=== PATIENT | female | born 1940 | race Caucasian/White ===

== ENCOUNTER 2018-04-26 17:30 | Inpatient (IN) | payer OTHER ==
[~2018-04-26] VITALS: Ht 162.6 cm; Wt 61.4 kg
[2018-04-26] MEDS ORDERED: IV NORMAL SALINE 1000ML BAG 1,000 ML IV SCH (18:13)
--- NOTE | 2018-04-26 18:24 | PHYS DOC ---
Adult General Chief Complaint Chief Complaint: MULTIPLE COMPLAINTS HPI HPI Patient is a 78-year-old female who presents with complaint of pain from her hips all the way up through her chest. Pain has been present for the last few months and patient indicates that she has not been eating very well since around . Patient reportedly has been in several different hospitals during that time and was most recently discharged from [facility] yesterday. Patient states the worst of her pain is in her chest and she rates the pain at a 10 out of 10. Patient states that any movement or deep breathing worsens the pain. Patient's daughter indicates that she had gone home with her and patient reportedly has fallen a few times since she's been home. Falls or not actually witnessed, patient was just found on the ground. Patient reportedly has lost a lot of weight in the last few months. Review of Systems Review of Systems Constitutional: Denies fever or chills [] Respiratory: Denies cough or shortness of breath [] Cardiovascular: No additional information not addressed in HPI [] GI: Complains of abdominal pain with no nausea, vomiting or diarrhea [] : [place] of dysuria without hematuria [] Musculoskeletal: [place] of back and diffuse joint pain [] All other systems were reviewed and found to be within normal limits, except as documented in this note. Current Medications Current Medications Current Medications Medications (Trade) Dose Ordered Sig/Natty Start Time Stop Time Status Last Admin Dose Admin Enoxaparin Sodium (Lovenox 60mg Syringe) 60 mg 1X ONCE 04/26/18 19:45 04/26/18 19:46 DC Sodium Chloride 1,000 ml @ 100 mls/hr Q10H 04/26/18 18:13 04/27/18 04:12 04/26/18 18:59 100 MLS/HR Allergies Allergies Allergies Coded Allergies Type Severity Reaction Last Updated Verified Penicillins Allergy Intermediate 04/26/18 Yes levofloxacin Allergy Intermediate 04/26/18 Yes morphine Allergy Intermediate 04/26/18 Yes Physical Exam Physical Exam Constitutional: Well developed, well nourished, no acute distress, non-toxic appearance. Patient is very histrionic on examination, placing both arms out in full extension and moaning in pain. [] HENT: Normocephalic, atraumatic, bilateral external ears normal, oropharynx moist, no oral exudates, nose normal. [] Eyes: PERRLA, EOMI, conjunctiva normal, no discharge. [] Neck: Normal range of motion, no tenderness, supple. [] Cardiovascular: Regular rate and rhythm. [] Lungs & Thorax: Bilateral breath sounds clear to auscultation [] Abdomen: Bowel sounds normal, soft with diffuse reported tenderness. [] Skin: Warm, dry, no erythema, no rash. [] Extremities: No cyanosis, no clubbing, ROM intact. [] Neurologic: Alert and oriented X 3, no focal deficits noted. [] Psychologic: Appears anxious on examination demonstrating histrionics. [] Current Patient Data Vital Signs Vital Signs Date Time Temp Pulse Resp B/P (MAP) Pulse Ox O2 Delivery O2 Flow Rate FiO2 04/26/18 18:00 95.9 89 23 184/73 (110) 100 Room Air 95.9 Lab Values Laboratory Tests Test 04/26/18 18:15 White Blood Count 14.8 x10^3/uL (4.0-11.0) H Red Blood Count 4.07 x10^6/uL (3.50-5.40) Hemoglobin 11.1 g/dL (12.0-15.5) L Hematocrit 34.4 % (36.0-47.0) L Mean Corpuscular Volume 84 fL (79-100) Mean Corpuscular Hemoglobin 27 pg (25-35) Mean Corpuscular Hemoglobin Concent 32 g/dL (31-37) Red Cell Distribution Width 16.8 % (11.5-14.5) H Platelet Count 413 x10^3/uL (140-400) H Neutrophils (%) (Auto) 78 % (31-73) H Lymphocytes (%) (Auto) 11 % (24-48) L Monocytes (%) (Auto) 9 % (0-9) Eosinophils (%) (Auto) 1 % (0-3) Basophils (%) (Auto) 1 % (0-3) Neutrophils # (Auto) 11.5 x10^3uL (1.8-7.7) H Lymphocytes # (Auto) 1.7 x10^3/uL (1.0-4.8) Monocytes # (Auto) 1.3 x10^3/uL (0.0-1.1) H Eosinophils # (Auto) 0.2 x10^3/uL (0.0-0.7) Basophils # (Auto) 0.1 x10^3/uL (0.0-0.2) D-Dimer (Carissa) 2.65 ug/mlFEU (0.00-0.50) H Sodium Level 127 mmol/L (136-145) L Potassium Level 3.5 mmol/L (3.5-5.1) Chloride Level 88 mmol/L (98-107) L Carbon Dioxide Level 26 mmol/L (21-32) Anion Gap 13 (6-14) Blood Urea Nitrogen 49 mg/dL (7-20) H Creatinine 2.3 mg/dL (0.6-1.0) H Estimated GFR (Cockcroft-Gault) 20.6 BUN/Creatinine Ratio 21 (6-20) H Glucose Level 333 mg/dL (70-99) H Calcium Level 10.4 mg/dL (8.5-10.1) H Magnesium Level 2.4 mg/dL (1.8-2.4) Total Bilirubin 0.6 mg/dL (0.2-1.0) Aspartate Amino Transferase (AST) 41 U/L (15-37) H Alanine Aminotransferase (ALT) 25 U/L (14-59) Alkaline Phosphatase 141 U/L (46-116) H Troponin I Quantitative 0.029 ng/mL (0.000-0.055) QE-Dez-W-Type Natriuretic Peptide 1905 pg/mL (0-449) H Total Protein 8.9 g/dL (6.4-8.2) H Albumin 3.4 g/dL (3.4-5.0) Albumin/Globulin Ratio 0.6 (1.0-1.7) L Lipase 2831 U/L (73-393) H Laboratory Tests 04/26/18 18:15 Laboratory Tests 04/26/18 18:15 EKG EKG [] Interpretation Time: EKG demonstrates normal sinus rhythm with rate of 85. There is non-specific intraventricular conduction delay. Radiology/Procedures Radiology/Procedures [] Course & Med Decision Making Course & Med Decision Making Pertinent Labs and Imaging studies reviewed. (See chart for details) [] Dragon Disclaimer Dragon Disclaimer This electronic medical record was generated, in whole or in part, using a voice recognition dictation system. Departure Departure Impression: Primary Impression: Acute pancreatitis Additional Impression: Chest pain Disposition: 09 ADMITTED INPATIENT Admitting Physician: Kamla Nelson Condition: IMPROVED Referrals: UNKNOWN PCP NAME (PCP) Problem Qualifiers Primary Impression: Acute pancreatitis Pancreatitis type: unspecified pancreatitis type Acute pancreatitis complication: unspecified Qualified Codes: K85.90 - Acute pancreatitis without necrosis or infection, unspecified Additional Impression: Chest pain Chest pain type: unspecified Qualified Codes: R07.9 - Chest pain, unspecified MONE CORONADO Jr. DO Apr 26, 2018 18:24
--- NOTE | 2018-04-26 18:24 | EKG ---
[facility] [address] [place] [address] Test Date: 2018-04-26 Test Time: 18:10:41 Pat Name: ELODIA MATA Department: Room: Gender: F [employer]: : 1940 Requested By: MONE CORONADO Order Number: [id number] Reading MD: David Mart Measurements Intervals [place] Rate: 85 P: 32 [place]: 236 QRS: 56 QRSD: 122 T: 159 QT: 382 QTc: 455 Interpretive Statements SINUS RHYTHM QRS(T) CONTOUR ABNORMALITY CONSISTENT WITH ANTEROSEPTAL INFARCT PROBABLY OLD LEFT VENTRICULAR HYPERTROPHY Electronically Signed On 05-02-2018 17:34:10 [employer] CLERK by David Mart
[2018-04-26 18:29] LABS: BASO # 0.1 x10^3/uL (0.0-0.2); BASO % 1 % (0-3); EOS # 0.2 x10^3/uL (0.0-0.7); EOS % 1 % (0-3); HEMATOCRIT 34.4 % (36.0-47.0); HEMOGLOBIN 11.1 g/dL (12.0-15.5); LYMPH # 1.7 x10^3/uL (1.0-4.8); LYMPH % 11 % (24-48); MEAN CORPUSCULAR HEMOGLOBIN 27 pg (25-35); MEAN CORPUSCULAR HGB CONC 32 g/dL (31-37); MEAN CORPUSCULAR VOLUME 84 fL (79-100); MONO # 1.3 x10^3/uL (0.0-1.1); MONO % 9 % (0-9); NEUT # 11.5 x10^3uL (1.8-7.7); NEUT % 78 % (31-73); PLATELET COUNT 413 x10^3/uL (140-400); RED BLOOD COUNT 4.07 x10^6/uL (3.50-5.40); RED CELL DISTRIBUTION WIDTH 16.8 % (11.5-14.5); WHITE BLOOD COUNT 14.8 x10^3/uL (4.0-11.0)
[2018-04-26 18:38] LABS: CALCIUM 10.4 mg/dL (8.5-10.1); CREATININE 2.3 mg/dL (0.6-1.0); GFR 20.6; POTASSIUM 3.5 mmol/L (3.5-5.1)
[2018-04-26 18:44] LABS: ALBUMIN 3.4 g/dL (3.4-5.0); ALBUMIN/GLOBULIN RATIO 0.6 (1.0-1.7); MAGNESIUM 2.4 mg/dL (1.8-2.4); TOTAL BILIRUBIN 0.6 mg/dL (0.2-1.0); TOTAL PROTEIN 8.9 g/dL (6.4-8.2)
[2018-04-26] MEDS ORDERED: fentaNYL PF VIAL 100 MCG/2 ML VIAL IV PRN (20:00)
[2018-04-26] MEDS ORDERED: ONDANSETRON PF 4 MG/2 ML VIAL. IV PRN (20:00)
[2018-04-26] MEDS ORDERED: HEPARIN 25,000UTS/500ML PREMIX 500 ML IV PRN ×2 (20:00)
[2018-04-26] MEDS ORDERED: HEPARIN for IV BOLUS 10,000 UNIT/10 ML VIAL. IV PRN ×2 (20:00)
[2018-04-26] MEDS ORDERED: DEXTROSE 50% 25 GM / 50ML DISP.SYRIN. IV PRN (20:30)
[2018-04-26 20:32] LABS: PROTHROMBIN TIME PATIENT 13.4 SEC (11.7-14.0)
--- NOTE | 2018-04-26 20:36 | PDOC1 ---
History and Physical Date of Admission Date of Admission DATE: 04/26/18 TIME: 20:33 Identification/Chief Complaint Chief Complaint chest pain Source Source: Chart review, Patient History of Present Illness History of Present Illness Ms. Elias is a 78-year-old female admit acuet abd and chest pain. She also had nausea with vomiting earlier today after she ate some fried fish. Shehas been in 3 hospitals in the past month. is s/p cardiac cath x2, and discharged from [facility] yesterday. very poor PO intake, some weight loss daughter is here and providing history, patient reports chest pain and pain from falls. ongoing problems about 2 months. Past Medical History Cardiovascular: CAD, HTN Heme/Onc: No pertinent hx Psych: No pertinent hx Musculoskeletal: low back pain, Osteoarthritis Endocrine: Diabetes Family History Family History: Coronary Artery Disease Social History ALCOHOL: none Drugs: None Current Problem List Problem List Problems Medical Problems: (1) Acute pancreatitis Status: Acute (2) Chest pain Status: Acute Current Medications Current Medications Current Medications Sodium Chloride 1,000 ml @ 100 mls/hr Q10H IV Last administered on 04/26/18at 18:59; Start 04/26/18 at 18:13; Stop 04/27/18 at 04:12 Enoxaparin Sodium (Lovenox 60mg Syringe) 60 mg 1X ONCE SQ ; Start 04/26/18 at 19:45; Stop 04/26/18 at 19:46; Status Cancel Heparin Sodium/ Dextrose 500 ml @ 0 mls/hr CONT PRN IV SEE I/O RECORD; Start at 20:00; Stop 04/26/18 at 20:01; Status DC Ondansetron HCl (Zofran) 4 mg PRN Q8HRS PRN IV NAUSEA/VOMITING; Start 04/26/18 at 20:00; Stop 04/27/18 at 19:59 Fentanyl Citrate (Fentanyl 2ml Vial) 50 mcg PRN Q1HR PRN IV PAIN; Start at 20:00; Stop 04/27/18 at 19:59 Heparin Sodium/ Dextrose 500 ml @ 0 mls/hr CONT PRN IV SEE I/O RECORD; Start at 20:00 Heparin Sodium (Porcine) (Heparin Sodium) 1,800 unit PRN Q6HRS PRN IV FOR UFH LEVEL LESS THAN 0.2; Start 04/26/18 at 20:00 Heparin Sodium (Porcine) (Heparin Sodium) 900 unit PRN Q6HRS PRN IV FOR UFH LEVEL 0.2 - 0.29; Start 04/26/18 at 20:00 Insulin Human Lispro (HumaLOG) 0-9 UNITS TIDWMEALS SQ ; Start 04/27/18 at 08:00 Dextrose (Dextrose 50%-Water Syringe) 12.5 gm PRN Q15MIN PRN IV SEE COMMENTS; Start 04/26/18 at 20:30 Labetalol HCl (Normodyne Iv Push) 20 mg PRN Q2HR PRN IVP HYPERTENSION, SEE COMMENTS; Start 04/26/18 at 20:45 Saliva Substitute (Biotene Moisturizing Mouth) 2 spray PRN Q15MIN PRN PO DRY MOUTH; Start 04/26/18 at 20:45 Allergies Allergies: Coded Allergies: Penicillins (Verified Allergy, Intermediate, 04/26/18) levofloxacin (Verified Allergy, Intermediate, 04/26/18) morphine (Verified Allergy, Intermediate, 04/26/18) ROS General: YES: Chills, Fatigue, Malaise; No: Night Sweats, Appetite, Other PSYCHOLOGICAL ROS: YES: Irritablity, Sleep disturbances; No: Anxiety, Behavioral Disorder, Concentration difficultie, Decreased libido , Depression, Disorientation, Hallucinations, Hostility, Memory difficulties, Mood Swings, Obsessive thoughts, Physical abuse, Sexual abuse, Suicidal ideation , Other Eyes: No Blurry vision, No Decreased vision, No Double vision, No Dry eyes, No Excessive tearing, No Eye Pain, No Itchy Eyes, No Loss of vision, No Photophobia , No Scotomata, No Uses contacts, No Uses glasses, No Other HEENT: No: Heacaches, Visual Changes, Hearing change, Nasal congestion, Nasal discharge, Oral lesions, Sinus pain, Sore Throat, Epistaxis, Sneezing, Snoring, Tinnitus, Vertigo, Vocal changes, Other Respiratory: YES: SOB with excertion; No: Cough, Hemoptysis, Orthopnea, Pleuritic Pain, Sputum Changes, Stridor, Tachypnea, Wheezing, Other Cardiovascular: yes Chest Pain; No Palpitations, No Orthopnea, No Paroxysmal Noc. Dyspnea, No Edema, No Lt Headedness, No Other Gastrointestinal: Yes Nausea, Yes Vomiting, Yes Abdominal Pain; No Diarrhea, No Constipation, No Melena, No Hematochezia, No Other Genitourinary: No Dysuria, No Frequency, No Incontinence, No Hematuria, No Retention, No Discharge, No Urgency, No Pain, No Flank Pain, No Other, No , No , No , No , No , No , No Musculoskeletal: No Gait Disturbance, No Joint Pain, No Joint Stiffness, No Joint Swelling, No Muscle Pain, No Muscular Weakness, No Pain In:, No Swelling In:, No Other Neurological: No Behavorial Changes, No Bowel/Bladder ControlChng, No Confusion , No Dizziness, No Gait Disturbance, No Headaches, No Impaired Coord/balance, No Memory Loss, No Numbness/Tingling, No Seizures, No Speech Problems, No Tremors, No Visual Changes, No Weakness, No Other Skin: No Dry Skin, No Eczema, No Hair Changes, No Lumps, No Mole Changes, No Mottling, No Nail Changes, No Pruritus, No Rash, No Skin Lesion Changes, No Other, No Acne Physical Exam General: Alert, Oriented X3, Cooperative, No acute distress HEENT: Atraumatic, PERRLA Lungs: Clear to auscultation Abdomen: Normal bowel sounds, Other (very tender RUQ, with guarding) Rectal Exam: not examined Extremities: No clubbing, No edema, Normal pulses Skin: No rashes, No significant lesion Neuro: Normal speech, Normal tone, Sensation intact, Cranial nerves 3-12 NL Psych/Mental Status: Mood NL Vitals Vitals Vital Signs Date Time Temp Pulse Resp B/P (MAP) Pulse Ox O2 Delivery O2 Flow Rate FiO2 04/26/18 18:00 95.9 89 23 184/73 (110) 100 Room Air 95.9 Labs Labs Laboratory Tests Test 04/26/18 18:15 White Blood Count 14.8 x10^3/uL (4.0-11.0) Red Blood Count 4.07 x10^6/uL (3.50-5.40) Hemoglobin 11.1 g/dL (12.0-15.5) Hematocrit 34.4 % (36.0-47.0) Mean Corpuscular Volume 84 fL (79-100) Mean Corpuscular Hemoglobin 27 pg (25-35) Mean Corpuscular Hemoglobin Concent 32 g/dL (31-37) Red Cell Distribution Width 16.8 % (11.5-14.5) Platelet Count 413 x10^3/uL (140-400) Neutrophils (%) (Auto) 78 % (31-73) Lymphocytes (%) (Auto) 11 % (24-48) Monocytes (%) (Auto) 9 % (0-9) Eosinophils (%) (Auto) 1 % (0-3) Basophils (%) (Auto) 1 % (0-3) Neutrophils # (Auto) 11.5 x10^3uL (1.8-7.7) Lymphocytes # (Auto) 1.7 x10^3/uL (1.0-4.8) Monocytes # (Auto) 1.3 x10^3/uL (0.0-1.1) Eosinophils # (Auto) 0.2 x10^3/uL (0.0-0.7) Basophils # (Auto) 0.1 x10^3/uL (0.0-0.2) Prothrombin Time 13.4 SEC (11.7-14.0) Prothromb Time International Ratio 1.1 (0.8-1.1) Activated Partial Thromboplast Time 29 SEC (24-38) D-Dimer (Carissa) 2.65 ug/mlFEU (0.00-0.50) Sodium Level 127 mmol/L (136-145) Potassium Level 3.5 mmol/L (3.5-5.1) Chloride Level 88 mmol/L (98-107) Carbon Dioxide Level 26 mmol/L (21-32) Anion Gap 13 (6-14) Blood Urea Nitrogen 49 mg/dL (7-20) Creatinine 2.3 mg/dL (0.6-1.0) Estimated GFR (Cockcroft-Gault) 20.6 BUN/Creatinine Ratio 21 (6-20) Glucose Level 333 mg/dL (70-99) Calcium Level 10.4 mg/dL (8.5-10.1) Magnesium Level 2.4 mg/dL (1.8-2.4) Total Bilirubin 0.6 mg/dL (0.2-1.0) Aspartate Amino Transf (AST/SGOT) 41 U/L (15-37) Alanine Aminotransferase (ALT/SGPT) 25 U/L (14-59) Alkaline Phosphatase 141 U/L (46-116) Troponin I Quantitative 0.029 ng/mL (0.000-0.055) BD-Vwn-H-Type Natriuretic Peptide 1905 pg/mL (0-449) Total Protein 8.9 g/dL (6.4-8.2) Albumin 3.4 g/dL (3.4-5.0) Albumin/Globulin Ratio 0.6 (1.0-1.7) Lipase 2831 U/L (73-393) Laboratory Tests Test 04/26/18 18:15 White Blood Count 14.8 x10^3/uL (4.0-11.0) Red Blood Count 4.07 x10^6/uL (3.50-5.40) Hemoglobin 11.1 g/dL (12.0-15.5) Hematocrit 34.4 % (36.0-47.0) Mean Corpuscular Volume 84 fL (79-100) Mean Corpuscular Hemoglobin 27 pg (25-35) Mean Corpuscular Hemoglobin Concent 32 g/dL (31-37) Red Cell Distribution Width 16.8 % (11.5-14.5) Platelet Count 413 x10^3/uL (140-400) Neutrophils (%) (Auto) 78 % (31-73) Lymphocytes (%) (Auto) 11 % (24-48) Monocytes (%) (Auto) 9 % (0-9) Eosinophils (%) (Auto) 1 % (0-3) Basophils (%) (Auto) 1 % (0-3) Neutrophils # (Auto) 11.5 x10^3uL (1.8-7.7) Lymphocytes # (Auto) 1.7 x10^3/uL (1.0-4.8) Monocytes # (Auto) 1.3 x10^3/uL (0.0-1.1) Eosinophils # (Auto) 0.2 x10^3/uL (0.0-0.7) Basophils # (Auto) 0.1 x10^3/uL (0.0-0.2) Prothrombin Time 13.4 SEC (11.7-14.0) Prothromb Time International Ratio 1.1 (0.8-1.1) Activated Partial Thromboplast Time 29 SEC (24-38) D-Dimer (Carissa) 2.65 ug/mlFEU (0.00-0.50) Sodium Level 127 mmol/L (136-145) Potassium Level 3.5 mmol/L (3.5-5.1) Chloride Level 88 mmol/L (98-107) Carbon Dioxide Level 26 mmol/L (21-32) Anion Gap 13 (6-14) Blood Urea Nitrogen 49 mg/dL (7-20) Creatinine 2.3 mg/dL (0.6-1.0) Estimated GFR (Cockcroft-Gault) 20.6 BUN/Creatinine Ratio 21 (6-20) Glucose Level 333 mg/dL (70-99) Calcium Level 10.4 mg/dL (8.5-10.1) Magnesium Level 2.4 mg/dL (1.8-2.4) Total Bilirubin 0.6 mg/dL (0.2-1.0) Aspartate Amino Transf (AST/SGOT) 41 U/L (15-37) Alanine Aminotransferase (ALT/SGPT) 25 U/L (14-59) Alkaline Phosphatase 141 U/L (46-116) Troponin I Quantitative 0.029 ng/mL (0.000-0.055) IJ-Pxv-L-Type Natriuretic Peptide 1905 pg/mL (0-449) Total Protein 8.9 g/dL (6.4-8.2) Albumin 3.4 g/dL (3.4-5.0) Albumin/Globulin Ratio 0.6 (1.0-1.7) Lipase 2831 U/L (73-393) VTE Prophylaxis Ordered VTE Prophylaxis Devices: No VTE Pharmacological Prophylaxi: Yes Assessment/Plan Assessment/Plan acute renal failure, vasomotor nephropathy likely, hypovolemic hyponatremia acute pancreatitis, eval gallstone, may need surg involved, SIRS, w/ acute pain, pancreas dysfunction Dm2, poor control, check A1c, add SSI, some hyperosmolar non-ketosis would also explain lytes nausea and vomiting and abd pain CAD, hx CHF, is s/p cardiac cath x2 this month, was not stented at , then one was placed at [facility]. falls, chest contusion, weakness and debility, FROY AVELAR MD Apr 26, 2018 20:36
[2018-04-26] MEDS ORDERED: SALIVA STIMULANT AGENT 44ML SPRAY BOTTLE. PO PRN (20:45)
[2018-04-26] MEDS: PATCH REMOVAL. MC SCH (21:00)
--- NOTE | 2018-04-26 23:39 | RAD ---
Examination: CT ABDOMEN PELVIS WO CONTRAST History: ABD PAIN; ELEVATED LIPASE Comparison/Correlation: None Findings: Axial images of the abdomen and pelvis were obtained without contrast. Sagittal and coronal reformatted images were provided. Coronary arterial calcifications are present. Right medial basilar calcified granuloma is present. Unenhanced liver, spleen, pancreas, and adrenal glands are normal. Minimal calculus involvement of the gallbladder is suspected. There is a right extrarenal pelvis. No radiopaque collecting system calculi. No loculated collections along the abdomen or pelvis. Moderate quantity of stool in the colon is present. No extraluminal gas. Significant calcification involving the abdominal aorta and iliac arteries noted. Significant calcification involving the common femoral arteries proximally noted. Impression: No definite inflammatory findings about the pancreas. Correlate clinically for pancreatitis. No loculated collection. Significant calcification of the abdominal aorta, iliac arteries, and common femoral arteries. significant calcification about the origins of the celiac and superior mesenteric arteries. Electronically signed by: Kang Renae MD (04/26/2018 11:35 PM) [facility]
--- NOTE | 2018-04-26 23:52 | RAD ---
Examination: ABDOMEN COMPLETE History: ABD PAIN/RUQ Comparison/Correlation: None Findings: Complete abdominal ultrasound exam was performed. Gallbladder is normal. Right kidney measures 11.17 x 3.18 x 6.2 cm. Left kidney measures 12.18 x 14 x 16. Right extrarenal pelvis is present. Slight right hydronephrosis is questioned. No significant hydronephrosis. Portal venous flow is normal. Fatty infiltration of the liver is present. Common bile duct is unremarkable. Proximal pancreas is normal. Distal pancreas is obscured by bowel gas. Impression: Fatty infiltration of the liver. Fullness of the right pelvicalyceal system probably representing extrarenal pelvis. Slight hydronephrosis not excluded. Electronically signed by: Kang Renae MD (04/26/2018 11:47 PM) [facility]
[2018-04-27] VITALS (8 sets, daily range): BP systolic 92–181; BP diastolic 47–104
[2018-04-27 01:41] LABS: BILIRUBIN,URINE NEGATIVE (NEG); CLARITY,URINE CLEAR; COLOR,URINE YELLOW; NITRITE,URINE NEGATIVE (NEG); PROTEIN,URINE 100 mg/dL (NEG-TRACE)
[2018-04-27 01:47] LABS: BARBITURATES NEG (NEG); BENZODIAZEPINES NEG (NEG); CANNABINOIDS NEG (NEG); COCAINE NEG (NEG); METHADONE NEG (NEG); OPIATES NEG (NEG); PHENCYCLIDINE NEG (NEG)
[2018-04-27 01:53] LABS: AMORPHOUS SEDIMENT,UR PRESENT /HPF; BACTERIA,URINE 0 /HPF (0-FEW); GRANULAR CASTS,URINE FEW /HPF; HYALINE CASTS, URINE OCCASIONAL /HPF; RBC,URINE OCC /HPF (0-2); SQUAMOUS EPITHELIAL CELL,UR MANY /LPF
[2018-04-27 01:54] LABS: AMPHETAMINE/METHAMPHETAMINE NEG (NEG)
[2018-04-27] MEDS ORDERED: FLUT1DIS3 IH (02:46)
[2018-04-27] MEDS ORDERED: NITR0.4T22 SL (02:46)
[2018-04-27] MEDS ORDERED: CYCL10TA2 PO (02:46)
[2018-04-27] MEDS ORDERED: BUME2TAB3 PO (02:48)
[2018-04-27] MEDS ORDERED: TICA90TA PO (02:48)
[2018-04-27] MEDS ORDERED: COLL30OI TP (03:05)
[2018-04-27] MEDS ORDERED: TRAM50TA PO (03:05)
[2018-04-27] MEDS ORDERED: GABA600T7 PO ×3 (03:05)
[2018-04-27] MEDS ORDERED: CRESTOR20 MG PO (03:05)
[2018-04-27] MEDS ORDERED: METO25TA4 PO (03:05)
[2018-04-27] MEDS ORDERED: ISOS30TA4 PO (03:05)
[2018-04-27] MEDS ORDERED: LISI2.5T PO (03:05)
[2018-04-27] MEDS ORDERED: NITR100C PO (03:05)
--- NOTE | 2018-04-27 03:05 | RAD ---
EXAM: CHEST 1 VIEW History: Chest pain COMPARISON: None available. TECHNIQUE: Single portable radiograph of the chest FINDINGS: The cardiac silhouette is unremarkable. Mild prominent bilateral interstitial lung markings probably chronic interstitial changes. The costophrenic sulci are clear and well demarcated. IMPRESSION: Mild prominent bilateral interstitial lung markings probably chronic interstitial changes Electronically signed by: Satish Junior MD (04/27/2018 3:01 AM) [facility]
[2018-04-27] MEDS: LIDOCAINE (700MG/PATCH) PATCH. TD SCH (08:14)
[2018-04-27] MEDS ORDERED: ANTI-COAG MONITOR BY PHARMACY. MC PRN (08:15)
[2018-04-27] MEDS: INSULIN LISPRO 300 UNITS/3 ML INSULN.PEN. SQ SCH ×3 (08:26→17:46)
--- NOTE | 2018-04-27 08:38 | EKG ---
[facility] [address] [place] [address] Test Date: 2018-04-27 Test Time: 08:31:41 Pat Name: ELODIA MATA Department: Room: 246 1 Gender: F Delivery Mgr: [facility] : 1940 Requested By: GILL GALVAN Order Number: [id number] Reading MD: David Mart Measurements Intervals [place] Rate: 97 P: -9 UT: 244 QRS: 32 QRSD: 114 T: 160 QT: 356 QTc: 456 Interpretive Statements SINUS RHYTHM PROLONGED UT INTERVAL QRS(T) CONTOUR ABNORMALITY CONSISTENT WITH ANTEROSEPTAL INFARCT PROBABLY OLD CONSISTENT WITH INFERIOR INFARCT AGE UNDETERMINED ST & T ABNORMALITY, CONSIDER HIGH LATERAL ISCHEMIA OR LEFT VENTRICULAR STRAIN ABNORMAL ECG Electronically Signed On 05-03-2018 9:30:48 DEAL ARCHITECT by David Mart
[2018-04-27] MEDS ORDERED: C.DIFF MED SCREEN BY RX. MC ONE (09:00)
--- NOTE | 2018-04-27 09:32 | PDOC2 ---
GI CONSULT Reason For Consult: Pancreatitis HPI: HPI: 78 y/o female admitted through ER. Reports diffuse abdominal pain/bloating/ fullness (worse under ribs, wrapping around both sides to back) "for awhile." Probably worse after eating. Has been losing weight unintentionally and fall frequently. Occasional GERD, takes something like Prilosec sometimes. No dysphagia. No n/ v or diarrhea. Might be constipated - last stool was 4 days ago. No bleeding. No previous EGD or colonoscopy. No GB, liver, or pancreas history. CAD w/ recent stent on Brilinta and ASA. Denies NSAIDs. Labs significant for WBC 14.8, Hgb 11.1, D-dimer 2.65, Ca 10.4, bili 0.6, AST 41 , ALT 25, Alk Phos 141, Cr 2.3, Na 127, BNP 1905, protein 8.9, lipase 2891, glucose 333. On imaging: normal pancreas and gallbladder, possible partially obstructive right ureteral calculus, significant calcification about the origins of the celiac and superior mesenteric arteries, normal CBD, fatty liver, and possible right hydronephrosis. PMH: PMH: CAD, CHF, HTN, HLD, COPD, OA, CKD, DM, hypothyroidism, neuropathy, PAD cataract removal, bilateral total knee replacement, cardiac stent, left TMA, right great toe amputation, left elbow surgery Social History: Smoke: Quit ALCOHOL: none Drugs: None ROS: GEN: Denies fevers, chills, sweats HEENT: Denies blurred vision, sore throat CV: ?CP RESP: Denies shortness of air, cough GI: Per HPI : Denies hematuria, dysuria ENDO: +weight loss NEURO: Denies confusion, dizziness MSK: +falls SKIN: Denies jaundice, pruritus Vitals: Vitals: Vital Signs Date Time Temp Pulse Resp B/P (MAP) Pulse Ox O2 Delivery O2 Flow Rate FiO2 04/27/18 07:04 98.5 92 18 124/56 (78) 98 Nasal Cannula 2.0 98.5 Labs: Labs: Laboratory Tests Test 04/26/18 18:15 04/27/18 01:30 04/27/18 05:00 04/27/18 07:30 White Blood Count 14.8 x10^3/uL (4.0-11.0) Red Blood Count 4.07 x10^6/uL (3.50-5.40) Hemoglobin 11.1 g/dL (12.0-15.5) Hematocrit 34.4 % (36.0-47.0) Mean Corpuscular Volume 84 fL (79-100) Mean Corpuscular Hemoglobin 27 pg (25-35) Mean Corpuscular Hemoglobin Concent 32 g/dL (31-37) Red Cell Distribution Width 16.8 % (11.5-14.5) Platelet Count 413 x10^3/uL (140-400) Neutrophils (%) (Auto) 78 % (31-73) Lymphocytes (%) (Auto) 11 % (24-48) Monocytes (%) (Auto) 9 % (0-9) Eosinophils (%) (Auto) 1 % (0-3) Basophils (%) (Auto) 1 % (0-3) Neutrophils # (Auto) 11.5 x10^3uL (1.8-7.7) Lymphocytes # (Auto) 1.7 x10^3/uL (1.0-4.8) Monocytes # (Auto) 1.3 x10^3/uL (0.0-1.1) Eosinophils # (Auto) 0.2 x10^3/uL (0.0-0.7) Basophils # (Auto) 0.1 x10^3/uL (0.0-0.2) Prothrombin Time 13.4 SEC (11.7-14.0) Prothromb Time International Ratio 1.1 (0.8-1.1) Activated Partial Thromboplast Time 29 SEC (24-38) D-Dimer (Carissa) 2.65 ug/mlFEU (0.00-0.50) Sodium Level 127 mmol/L (136-145) Potassium Level 3.5 mmol/L (3.5-5.1) Chloride Level 88 mmol/L (98-107) Carbon Dioxide Level 26 mmol/L (21-32) Anion Gap 13 (6-14) Blood Urea Nitrogen 49 mg/dL (7-20) Creatinine 2.3 mg/dL (0.6-1.0) Estimated GFR (Cockcroft-Gault) 20.6 BUN/Creatinine Ratio 21 (6-20) Glucose Level 333 mg/dL (70-99) Calcium Level 10.4 mg/dL (8.5-10.1) Magnesium Level 2.4 mg/dL (1.8-2.4) Total Bilirubin 0.6 mg/dL (0.2-1.0) Aspartate Amino Transf (AST/SGOT) 41 U/L (15-37) Alanine Aminotransferase (ALT/SGPT) 25 U/L (14-59) Alkaline Phosphatase 141 U/L (46-116) Troponin I Quantitative 0.029 ng/mL (0.000-0.055) BU-Bhn-L-Type Natriuretic Peptide 1905 pg/mL (0-449) Total Protein 8.9 g/dL (6.4-8.2) Albumin 3.4 g/dL (3.4-5.0) Albumin/Globulin Ratio 0.6 (1.0-1.7) Lipase 2831 U/L (73-393) Urine Collection Type Unknown Urine Color Yellow Urine Clarity Clear Urine pH 6.0 Urine Specific [place] 1.020 Urine Protein 100 mg/dL (NEG-TRACE) Urine Glucose (UA) >=1000 mg/dL (NEG) Urine Ketones (Stick) Negative mg/dL (NEG) Urine Blood Negative (NEG) Urine Nitrite Negative (NEG) Urine Bilirubin Negative (NEG) Urine Urobilinogen Dipstick 1.0 mg/dL (0.2 mg/dL) Urine Leukocyte Esterase Negative (NEG) Urine RBC Occ /HPF (0-2) Urine WBC 5-10 /HPF (0-4) Urine Squamous Epithelial Cells Many /LPF Urine Amorphous Sediment Present /HPF Urine Bacteria 0 /HPF (0-FEW) Urine Hyaline Casts Occasional /HPF Urine Granular Casts Few /HPF Urine Mucus Mod /LPF Urine Opiates Screen Neg (NEG) Urine Methadone Screen Neg (NEG) Urine Barbiturates Neg (NEG) Urine Phencyclidine Screen Neg (NEG) Urine Amphetamine/Methamphetamine Neg (NEG) Urine Benzodiazepines Screen Neg (NEG) Urine Cocaine Screen Neg (NEG) Urine Cannabinoids Screen Neg (NEG) Urine Ethyl Alcohol Neg (NEG) Heparin Anti-Xa Act, Unfractionated 0.23 IU/mL (0.30-0.70) Glucose (Fingerstick) 289 mg/dL (70-99) Allergies: Coded Allergies: Penicillins (Verified Allergy, Intermediate, 04/26/18) levofloxacin (Verified Allergy, Intermediate, 04/26/18) morphine (Verified Allergy, Intermediate, 04/26/18) vancomycin (Verified Allergy, Unknown, Itching, 04/27/18) Medications: Current Medications Medications (Trade) Dose Ordered Sig/Natty Route PRN Reason Start Time Stop Time Status Last Admin Dose Admin Sodium Chloride 1,000 ml @ 100 mls/hr Q10H IV 04/26/18 18:13 04/27/18 04:12 DC 04/26/18 18:59 Heparin Sodium/ Dextrose 500 ml @ 0 mls/hr CONT PRN IV SEE I/O RECORD 04/26/18 20:00 04/26/18 22:59 Heparin Sodium (Porcine) (Heparin Sodium) 1,800 unit PRN Q6HRS PRN IV FOR UFH LEVEL LESS THAN 0.2 04/26/18 20:00 04/26/18 22:52 Heparin Sodium (Porcine) (Heparin Sodium) 900 unit PRN Q6HRS PRN IV FOR UFH LEVEL 0.2 - 0.29 04/26/18 20:00 04/27/18 08:16 Insulin Human Lispro (HumaLOG) 0-9 UNITS TIDWMEALS SQ 04/27/18 08:00 04/27/18 08:26 Lidocaine (Lidoderm) 1 patch DAILY TD 04/27/18 09:00 04/27/18 08:14 Miscellaneous (Lidoderm Patch Removal) 1 ea QHS MC 04/26/18 21:00 04/26/18 21:00 Imaging: Imaging: CXR IMPRESSION: Mild prominent bilateral interstitial lung markings probably chronic interstitial changes. CT A/P Coronary arterial calcifications are present. Right medial basilar calcified granuloma is present. Unenhanced liver, spleen, pancreas, and adrenal glands are normal. Minimal calculus involvement of the gallbladder is suspected. There is a right extrarenal pelvis. No radiopaque collecting system calculi. No loculated collections along the abdomen or pelvis. Moderate quantity of stool in the colon is present. No extraluminal gas. Significant calcification involving the abdominal aorta and iliac arteries noted. Significant calcification involving the common femoral arteries proximally noted. Impression: No definite inflammatory findings about the pancreas. Correlate clinically for pancreatitis. No loculated collection. Significant calcification of the abdominal aorta, iliac arteries, and common femoral arteries. significant calcification about the origins of the celiac and superior mesenteric arteries. Addendum: There is a calcific density anterior to the right psoas muscle at the iliac crest level on axial image 55. Possibility of this representing a partially obstructive 0.3 cm diameter ureteral calculus is raised. There is no right perinephric stranding however. Slight fullness of the right renal pelvis and calyces noted. Delayed nephrographic phase contrast-enhanced CT may be performed for further assessment if clinically desired. Abd US Gallbladder is normal. Right kidney measures 11.17 x 3.18 x 6.2 cm. Left kidney measures 12.18 x 14 x 16. Right extrarenal pelvis is present. Slight right hydronephrosis is questioned. No significant hydronephrosis. Portal venous flow is normal. Fatty infiltration of the liver is present. Common bile duct is unremarkable. Proximal pancreas is normal. Distal pancreas is obscured by bowel gas. Impression: Fatty infiltration of the liver. Fullness of the right pelvicalyceal system probably representing extrarenal pelvis. Slight hydronephrosis not excluded. PE: GEN: uncomfortable HEENT: Atraumatic, PERRL LUNGS: NC, clear HEART: RRR +loud murm ABD: tender to very light touch, BS+, possibly distended EXTREMITY: left TMA, right great toe amputation SKIN: various bruises on arms NEURO/PSYCH: A & O �3, depressed A/P: A/P: Abd pain, weight loss, elevated lipase H/o GERD CRC screen - none Fatty liver Leukocytosis CAD w/ recent stent on Brilinta and ASA, DM, CKD, elevated D-dimer -- Supportive care for pancreatitis of unclear etiology - no gallstones on imaging , not a drinker, Calcium is 10.4, lipid panel pending. NPO for now. Add PPI w/ h/o GERD and considering Brilinta and ASA use. Reviewed w/ Dr. Bolton - will ask urology to see re: possible ureteral stone/ hydronephrosis. Consider abd doppler later on re: significant calcifications about origins of celiac and SMA. SILVIA LEMON Apr 27, 2018 09:32
--- NOTE | 2018-04-27 09:35 | NUR ---
Wound care: Patient seen per wound care consult. See wound assessment. Patient has DFU to left plantar foot. Recommendations to paint with Betadine daily and leave open to air. Patient stated she had been applying Sanytl to wound daily but was not helping. Wound appears to be dry and covered with eschar, therefor Betadine applied and left open to air. No other wounds noted upon complete head to toe assessment. Dressing change instructions left in room. Will follow patient regarding wound care. Bed lowered and call light in reach.
--- NOTE | 2018-04-27 09:42 | PDOC2 ---
CARDIAC CONSULT DATE OF CONSULT Date of Consult DATE: 04/27/18 TIME: 09:20 REASON FOR CONSULT Reason for Consult: CHF, hx of CAD REFERRING PHYSICIAN Referring Physician: Omar SOURCE Source: Chart review, Patient HISTORY OF PRESENT ILLNESS HISTORY OF PRESENT ILLNESS This is a pleasant 78 yo female admitted for complains of abd pain and chest pain. She has had PCI with stent placed about a month ago at [facility]. She has been taking her antiplatelet therapy and cardiac meds. She fell 2 weeks ago chest first and since then her chest has been hurting as well as her abd. Both of which feels crampy but no nausea or diarrhea. Also her left chest pain is nonradiating and reproducible. No immediate injuries related to her fall. She is toeless in her left foot and missing big toe to right foot as they were amputated due to infection in the past. She did not use any walker or cane at that time. Denies any SOA and she has COPD and uses her inhalers. The last time she drank ETOH was over a yr ago and has stopped smoking remotely. Denies any palpitations, dizziness. In relation to her fall, there was no passing out and no immediate weakness to her LE. No recent fever or chills and no recent antibiotics. PAST MEDICAL HISTORY Cardiovascular: CAD, CHF, HTN, Hyperlipidemia Pulmonary: COPD CENTRAL NERVOUS SYSTEM: Other (No pertinent history) Musculoskeletal: Osteoarthritis, Other (osteomyelitis, right big toe surgical injury) Rheumatologic: No pertinent hx Infectious disease: No pertinent hx ENT: Other (cataract) Renal/: Chronic renal insuff Endocrine: Diabetes (2), Hypothyroidism Dermatology: No pertinent hx PAST SURGICAL HISTORY Past Surgical History: Cataract Removal, Total knee replacement (bilateral ), Other (PCI/stent over a month ago; left foot all toes amputated right big toe amputated) FAMILY HISTORY Family History noncontributory SOCIAL HISTORY Smoke: Quit ALCOHOL: none Drugs: None Lives: Alone CURRENT MEDICATIONS CURRENT MEDICATIONS Current Medications Medications (Trade) Dose Ordered Sig/Natty Route PRN Reason Start Time Stop Time Status Last Admin Dose Admin Sodium Chloride 1,000 ml @ 100 mls/hr Q10H IV 04/26/18 18:13 04/27/18 04:12 DC 04/26/18 18:59 Heparin Sodium/ Dextrose 500 ml @ 0 mls/hr CONT PRN IV SEE I/O RECORD 04/26/18 20:00 04/26/18 22:59 Heparin Sodium (Porcine) (Heparin Sodium) 1,800 unit PRN Q6HRS PRN IV FOR UFH LEVEL LESS THAN 0.2 04/26/18 20:00 04/26/18 22:52 Heparin Sodium (Porcine) (Heparin Sodium) 900 unit PRN Q6HRS PRN IV FOR UFH LEVEL 0.2 - 0.29 04/26/18 20:00 04/27/18 08:16 Insulin Human Lispro (HumaLOG) 0-9 UNITS TIDWMEALS SQ 04/27/18 08:00 04/27/18 08:26 Lidocaine (Lidoderm) 1 patch DAILY TD 04/27/18 09:00 04/27/18 08:14 Miscellaneous (Lidoderm Patch Removal) 1 ea QHS MC 04/26/18 21:00 04/26/18 21:00 ALLERGIES ALLERGIES: Coded Allergies: Penicillins (Verified Allergy, Intermediate, 04/26/18) levofloxacin (Verified Allergy, Intermediate, 04/26/18) morphine (Verified Allergy, Intermediate, 04/26/18) vancomycin (Verified Allergy, Unknown, Itching, 04/27/18) ROS Review of System 14 point ROS evaluated with pertinent positives noted per HPI PHYSICAL EXAM General: Alert, Oriented X3, Cooperative, No acute distress HEENT: Atraumatic, Mucous membr. moist/pink Lungs: Clear to auscultation, Normal air movement Heart: Regular rate (SR), Other (diffuse systolic murmur 5/6 ) Abdomen: Other (abd tenderness) Extremities: No cyanosis, No edema Skin: No breakdown, No significant lesion Neuro: Normal speech, Sensation intact Psych/Mental Status: Mental status NL, Mood NL MUSCULOSKELETAL: Osteoarthritic changes both hands VITALS VITALS Vital Signs Date Time Temp Pulse Resp B/P (MAP) Pulse Ox O2 Delivery O2 Flow Rate FiO2 04/27/18 07:04 98.5 92 18 124/56 (78) 98 Nasal Cannula 2.0 98.5 LABS Lab: Laboratory Tests Test 04/26/18 18:15 04/27/18 01:30 04/27/18 05:00 04/27/18 07:30 White Blood Count 14.8 x10^3/uL (4.0-11.0) Red Blood Count 4.07 x10^6/uL (3.50-5.40) Hemoglobin 11.1 g/dL (12.0-15.5) Hematocrit 34.4 % (36.0-47.0) Mean Corpuscular Volume 84 fL (79-100) Mean Corpuscular Hemoglobin 27 pg (25-35) Mean Corpuscular Hemoglobin Concent 32 g/dL (31-37) Red Cell Distribution Width 16.8 % (11.5-14.5) Platelet Count 413 x10^3/uL (140-400) Neutrophils (%) (Auto) 78 % (31-73) Lymphocytes (%) (Auto) 11 % (24-48) Monocytes (%) (Auto) 9 % (0-9) Eosinophils (%) (Auto) 1 % (0-3) Basophils (%) (Auto) 1 % (0-3) Neutrophils # (Auto) 11.5 x10^3uL (1.8-7.7) Lymphocytes # (Auto) 1.7 x10^3/uL (1.0-4.8) Monocytes # (Auto) 1.3 x10^3/uL (0.0-1.1) Eosinophils # (Auto) 0.2 x10^3/uL (0.0-0.7) Basophils # (Auto) 0.1 x10^3/uL (0.0-0.2) Prothrombin Time 13.4 SEC (11.7-14.0) Prothromb Time International Ratio 1.1 (0.8-1.1) Activated Partial Thromboplast Time 29 SEC (24-38) D-Dimer (Carissa) 2.65 ug/mlFEU (0.00-0.50) Sodium Level 127 mmol/L (136-145) Potassium Level 3.5 mmol/L (3.5-5.1) Chloride Level 88 mmol/L (98-107) Carbon Dioxide Level 26 mmol/L (21-32) Anion Gap 13 (6-14) Blood Urea Nitrogen 49 mg/dL (7-20) Creatinine 2.3 mg/dL (0.6-1.0) Estimated GFR (Cockcroft-Gault) 20.6 BUN/Creatinine Ratio 21 (6-20) Glucose Level 333 mg/dL (70-99) Calcium Level 10.4 mg/dL (8.5-10.1) Magnesium Level 2.4 mg/dL (1.8-2.4) Total Bilirubin 0.6 mg/dL (0.2-1.0) Aspartate Amino Transf (AST/SGOT) 41 U/L (15-37) Alanine Aminotransferase (ALT/SGPT) 25 U/L (14-59) Alkaline Phosphatase 141 U/L (46-116) Troponin I Quantitative 0.029 ng/mL (0.000-0.055) TL-Msi-L-Type Natriuretic Peptide 1905 pg/mL (0-449) Total Protein 8.9 g/dL (6.4-8.2) Albumin 3.4 g/dL (3.4-5.0) Albumin/Globulin Ratio 0.6 (1.0-1.7) Lipase 2831 U/L (73-393) Urine Collection Type Unknown Urine Color Yellow Urine Clarity Clear Urine pH 6.0 Urine Specific [place] 1.020 Urine Protein 100 mg/dL (NEG-TRACE) Urine Glucose (UA) >=1000 mg/dL (NEG) Urine Ketones (Stick) Negative mg/dL (NEG) Urine Blood Negative (NEG) Urine Nitrite Negative (NEG) Urine Bilirubin Negative (NEG) Urine Urobilinogen Dipstick 1.0 mg/dL (0.2 mg/dL) Urine Leukocyte Esterase Negative (NEG) Urine RBC Occ /HPF (0-2) Urine WBC 5-10 /HPF (0-4) Urine Squamous Epithelial Cells Many /LPF Urine Amorphous Sediment Present /HPF Urine Bacteria 0 /HPF (0-FEW) Urine Hyaline Casts Occasional /HPF Urine Granular Casts Few /HPF Urine Mucus Mod /LPF Urine Opiates Screen Neg (NEG) Urine Methadone Screen Neg (NEG) Urine Barbiturates Neg (NEG) Urine Phencyclidine Screen Neg (NEG) Urine Amphetamine/Methamphetamine Neg (NEG) Urine Benzodiazepines Screen Neg (NEG) Urine Cocaine Screen Neg (NEG) Urine Cannabinoids Screen Neg (NEG) Urine Ethyl Alcohol Neg (NEG) Heparin Anti-Xa Act, Unfractionated 0.23 IU/mL (0.30-0.70) Glucose (Fingerstick) 289 mg/dL (70-99) ASSESSMENT/PLAN ASSESSMENT/PLAN 1. Atypical CP: suspect MSK with related mechanical fall 2 weeks ago. Reproducible. 2. Suspect severe 3. Mechanical fall: no injuries, no presyncope or syncope 4. CAD: PCI/stent over a month ago at [facility]. Clinically stable. 5. 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 Abd pain with possible pancreatitis: GI following 7. Chronic diastolic CHF: compensated 8. COPD: stable 9. DM2: uncontrolled per PCP 10. CKD: unknown baseline 11. HTN: labile initially and improving. 12. HLP Recommendations 1. No cardiac indication for heparin, defer to PCP. Continue brilinta and ASA. 2. Restart home cardiac meds with sips of H2O 3. Initial trop normal, trend trop. EKG SR with long firs degree AV block with LV strain pattern and previous inferior PA. Obtain TTE 4. Request records from [facility]. 5. OT/PT eval and treat GILL GALVAN APRN Apr 27, 2018 09:42
[2018-04-27 09:55] LABS: BASO % 0 % (0-3); EOS # 0.2 x10^3/uL (0.0-0.7); EOS % 1 % (0-3); HEMATOCRIT 33.6 % (36.0-47.0); LYMPH # 1.1 x10^3/uL (1.0-4.8); LYMPH % 7 % (24-48); MEAN CORPUSCULAR HEMOGLOBIN 28 pg (25-35); MEAN CORPUSCULAR HGB CONC 33 g/dL (31-37); MEAN CORPUSCULAR VOLUME 85 fL (79-100); MONO # 1.3 x10^3/uL (0.0-1.1); MONO % 7 % (0-9); NEUT % 85 % (31-73); PLATELET COUNT 350 x10^3/uL (140-400); RED BLOOD COUNT 3.94 x10^6/uL (3.50-5.40); WHITE BLOOD COUNT 17.6 x10^3/uL (4.0-11.0)
[2018-04-27 10:34] LABS: CHOLESTEROL/HDL RATIO 2.9
[2018-04-27 11:01] LABS: ALBUMIN 3.1 g/dL (3.4-5.0); ALBUMIN/GLOBULIN RATIO 0.6 (1.0-1.7); CALCIUM 10.1 mg/dL (8.5-10.1); CREATININE 1.8 mg/dL (0.6-1.0); GFR 27.4; PHOSPHORUS 3.7 mg/dL (2.6-4.7); POTASSIUM 3.7 mmol/L (3.5-5.1); TOTAL BILIRUBIN 0.6 mg/dL (0.2-1.0); TOTAL PROTEIN 8.3 g/dL (6.4-8.2)
[2018-04-27] MEDS: INSULIN GLARGINE 300 UNITS/3 ML INSULN.PEN. SQ SCH (11:12)
[2018-04-27] MEDS: ASPIRIN ENTERIC COATED 81 MG TABLET.DR. PO SCH (11:15)
[2018-04-27] MEDS: TICAGRELOR 90 MG TABLET. PO SCH ×2 (11:16→20:48)
[2018-04-27] MEDS: PANTOPRAZOLE 40 MG TABLET.DR. PO SCH (11:16)
--- NOTE | 2018-04-27 11:20 | PDOC2 ---
CONSULT Date of Consult Date of Consult DATE: 04/27/18 TIME: 11:12 Reason for Consult Reason for Consult: ALLY Referring Physician Referring Physician: VALENTINO Identification/Chief Complaint Chief Complaint CHEST PAIN WITH N/V Source Source: Chart review History of Present Illness Reason for Visit: THIS IS A 78 YR OLD WITH CHEST PAIN AND N/V. CURRENTLY UNDERGOING GI AND CARDIOLOGY EVALUATION. CR OF 2.3 AND NA OF 127 WITH HYPERGLYCEMIA AND GLUCOSURIA AND URINE SP GR OF 1.020. RENAL SONO ? OF RIGHT HYDRONEPHROSIS BUT UNLIKELY. POSSIBLE CKD HX BUT NONE REPORTED. NO OTHER HX. LIPASE LEVELS ARE UP. SHE ALSO HAS LEUCOCYTOSIS Past Medical History Cardiovascular: CAD, CHF, HTN, Hyperlipidemia Pulmonary: COPD CENTRAL NERVOUS SYSTEM: Other (No pertinent history) Heme/Onc: No pertinent hx Psych: No pertinent hx Musculoskeletal: Osteoarthritis, Other (osteomyelitis, right big toe surgical injury) Rheumatologic: No pertinent hx Infectious disease: No pertinent hx ENT: Other (cataract) Renal/: Chronic renal insuff Endocrine: Diabetes (2), Hypothyroidism Dermatology: No pertinent hx Past Surgical History Past Surgical History: Cataract Removal, Total knee replacement (bilateral ), Other (PCI/stent over a month ago; left foot all toes amputated right big toe amputated) Family History Family History: Coronary Artery Disease Social History Quit ALCOHOL: none Drugs: None Lives: Alone Current Problem List Problem List Problems Medical Problems: (1) Acute pancreatitis Status: Acute (2) Chest pain Status: Acute Current Medications Current Medications Current Medications Sodium Chloride 1,000 ml @ 100 mls/hr Q10H IV Last administered on 04/26/18at 18:59; Start 04/26/18 at 18:13; Stop 04/27/18 at 04:12; Status DC Enoxaparin Sodium (Lovenox 60mg Syringe) 60 mg 1X ONCE SQ ; Start 04/26/18 at 19:45; Stop 04/26/18 at 19:46; Status Cancel Heparin Sodium/ Dextrose 500 ml @ 0 mls/hr CONT PRN IV SEE I/O RECORD; Start at 20:00; Stop 04/26/18 at 20:01; Status DC Ondansetron HCl (Zofran) 4 mg PRN Q8HRS PRN IV NAUSEA/VOMITING; Start 04/26/18 at 20:00; Stop 04/27/18 at 19:59 Fentanyl Citrate (Fentanyl 2ml Vial) 50 mcg PRN Q1HR PRN IV PAIN; Start at 20:00; Stop 04/27/18 at 19:59 Heparin Sodium/ Dextrose 500 ml @ 0 mls/hr CONT PRN IV SEE I/O RECORD Last administered on 04/26/18at 22:59; Start 04/26/18 at 20:00 Heparin Sodium (Porcine) (Heparin Sodium) 1,800 unit PRN Q6HRS PRN IV FOR UFH LEVEL LESS THAN 0.2 Last administered on 04/26/18at 22:52; Start 04/26/18 at 20: 00 Heparin Sodium (Porcine) (Heparin Sodium) 900 unit PRN Q6HRS PRN IV FOR UFH LEVEL 0.2 - 0.29 Last administered on 04/27/18at 08:16; Start 04/26/18 at 20:00 Insulin Human Lispro (HumaLOG) 0-9 UNITS TIDWMEALS SQ Last administered on 04/27at 08:26; Start 04/27/18 at 08:00 Dextrose (Dextrose 50%-Water Syringe) 12.5 gm PRN Q15MIN PRN IV SEE COMMENTS; Start 04/26/18 at 20:30 Labetalol HCl (Normodyne Iv Push) 20 mg PRN Q2HR PRN IVP HYPERTENSION, SEE COMMENTS; Start 04/26/18 at 20:45 Saliva Substitute (Biotene Moisturizing Mouth) 2 spray PRN Q15MIN PRN PO DRY MOUTH; Start 04/26/18 at 20:45 Lidocaine (Lidoderm) 1 patch DAILY TD Last administered on 04/27/18at 08:14; Start 04/27/18 at 09:00 Miscellaneous (Lidoderm Patch Removal) 1 ea QHS MC Last administered on at 21:00; Start 04/26/18 at 21:00 Pharmacy Consult (C.diff Med Screen By Rx) 1 each 1X ONCE MC ; Start 04/27/18 at 09:00; Stop 04/27/18 at 09:01; Status Cancel Info (Anti-Coagulation Monitoring By Pharmacy) 1 each PRN DAILY PRN MC SEE COMMENTS; Start 04/27/18 at 08:15 Aspirin (Ecotrin) 81 mg DAILYWBKFT PO ; Start 04/27/18 at 10:00 Ticagrelor (Brilinta) 90 mg BID PO ; Start 04/27/18 at 10:00 Insulin Glargine (Lantus) 14 units DAILY10 SQ Last administered on 04/27/18at 11 :12; Start 04/27/18 at 11:00 Pantoprazole Sodium (Protonix) 40 mg DAILYAC PO ; Start 04/27/18 at 11:00 Lactobacillus Rhamnosus (Culturelle) 1 cap BID PO ; Start 04/27/18 at 21:00 Active Scripts Active Reported Santyl Ointment (Collagenase) 30 Gm Oint...g. 1 Rose TP DAILY DIRECTED BY PHYSICIAN Tramadol Hcl 50 Mg Tablet 50 Mg PO Q6HRS PRN Lisinopril 2.5 Mg Tablet 1 Tab PO DAILY Crestor (Rosuvastatin Calcium) 20 Mg Tablet 20 Mg PO HS Isosorbide Mononitrate Er (Isosorbide Mononitrate) 30 Mg Tab.er.24h 1 Tab PO DAILY Gabapentin 600 Mg Tablet 300 Mg PO HS Gabapentin 600 Mg Tablet 100 Mg PO NOON Gabapentin 600 Mg Tablet 200 Mg PO DAILYWBKFT Nitrofurantoin (Nitrofurantoin Macrocrystal) 100 Mg Capsule 1 Cap PO BID Metoprolol Tartrate 25 Mg Tablet 1 Tab PO BID Brilinta (Ticagrelor) 90 Mg Tablet 90 Mg PO BID Bumetanide 2 Mg Tablet 1 Tab PO DAILY NITROGLYCERIN SubLingual (Nitroglycerin) 0.4 Mg Tab.subl 0.4 Mg SL PRN Q5MIN PRN Cyclobenzaprine Hcl 10 Mg Tablet 1 Tab PO BID Advair 250-50 Diskus (Fluticasone/Salmeterol) 1 Each Disk.w.dev 1 Puff IH BID Allergies Allergies: Coded Allergies: Penicillins (Verified Allergy, Intermediate, 04/26/18) levofloxacin (Verified Allergy, Intermediate, 04/26/18) morphine (Verified Allergy, Intermediate, 04/26/18) vancomycin (Verified Allergy, Unknown, Itching, 04/27/18) ROS General: YES: Fatigue, Malaise PSYCHOLOGICAL ROS: YES: Anxiety Eyes: Yes Decreased vision HEENT: YES: Heacaches Respiratory: YES: Cough Cardiovascular: yes Chest Pain Gastrointestinal: Yes Nausea, Yes Vomiting Genitourinary: YES Other (NOCTURIA) Musculoskeletal: Yes Muscular Weakness Neurological: Yes Weakness Skin: Yes Dry Skin Physical Exam General: Alert, Oriented X3, Cooperative, No acute distress HEENT: Atraumatic, PERRLA Lungs: Clear to auscultation Heart: Regular rate, Normal S1, Normal S2 Abdomen: Normal bowel sounds, Soft, No tenderness Extremities: No clubbing, No cyanosis Skin: No breakdown Neuro: Normal speech, Cranial nerves 3-12 NL Psych/Mental Status: Mental status NL, Mood NL MUSCULOSKELETAL: No deformity, No swelling Vitals VITALS Vital Signs Date Time Temp Pulse Resp B/P (MAP) Pulse Ox O2 Delivery O2 Flow Rate FiO2 04/27/18 11:00 98.2 95 18 149/67 (94) 98 Nasal Cannula 2.0 98.2 Labs Labs Laboratory Tests Test 04/26/18 18:15 04/27/18 01:30 04/27/18 05:00 04/27/18 07:30 White Blood Count 14.8 x10^3/uL (4.0-11.0) Red Blood Count 4.07 x10^6/uL (3.50-5.40) Hemoglobin 11.1 g/dL (12.0-15.5) Hematocrit 34.4 % (36.0-47.0) Mean Corpuscular Volume 84 fL (79-100) Mean Corpuscular Hemoglobin 27 pg (25-35) Mean Corpuscular Hemoglobin Concent 32 g/dL (31-37) Red Cell Distribution Width 16.8 % (11.5-14.5) Platelet Count 413 x10^3/uL (140-400) Neutrophils (%) (Auto) 78 % (31-73) Lymphocytes (%) (Auto) 11 % (24-48) Monocytes (%) (Auto) 9 % (0-9) Eosinophils (%) (Auto) 1 % (0-3) Basophils (%) (Auto) 1 % (0-3) Neutrophils # (Auto) 11.5 x10^3uL (1.8-7.7) Lymphocytes # (Auto) 1.7 x10^3/uL (1.0-4.8) Monocytes # (Auto) 1.3 x10^3/uL (0.0-1.1) Eosinophils # (Auto) 0.2 x10^3/uL (0.0-0.7) Basophils # (Auto) 0.1 x10^3/uL (0.0-0.2) Prothrombin Time 13.4 SEC (11.7-14.0) Prothromb Time International Ratio 1.1 (0.8-1.1) Activated Partial Thromboplast Time 29 SEC (24-38) D-Dimer (Carissa) 2.65 ug/mlFEU (0.00-0.50) Sodium Level 127 mmol/L (136-145) Potassium Level 3.5 mmol/L (3.5-5.1) Chloride Level 88 mmol/L (98-107) Carbon Dioxide Level 26 mmol/L (21-32) Anion Gap 13 (6-14) Blood Urea Nitrogen 49 mg/dL (7-20) Creatinine 2.3 mg/dL (0.6-1.0) Estimated GFR (Cockcroft-Gault) 20.6 BUN/Creatinine Ratio 21 (6-20) Glucose Level 333 mg/dL (70-99) Calcium Level 10.4 mg/dL (8.5-10.1) Magnesium Level 2.4 mg/dL (1.8-2.4) Total Bilirubin 0.6 mg/dL (0.2-1.0) Aspartate Amino Transf (AST/SGOT) 41 U/L (15-37) Alanine Aminotransferase (ALT/SGPT) 25 U/L (14-59) Alkaline Phosphatase 141 U/L (46-116) Troponin I Quantitative 0.029 ng/mL (0.000-0.055) KS-Wek-M-Type Natriuretic Peptide 1905 pg/mL (0-449) Total Protein 8.9 g/dL (6.4-8.2) Albumin 3.4 g/dL (3.4-5.0) Albumin/Globulin Ratio 0.6 (1.0-1.7) Lipase 2831 U/L (73-393) Urine Collection Type Unknown Urine Color Yellow Urine Clarity Clear Urine pH 6.0 Urine Specific [place] 1.020 Urine Protein 100 mg/dL (NEG-TRACE) Urine Glucose (UA) >=1000 mg/dL (NEG) Urine Ketones (Stick) Negative mg/dL (NEG) Urine Blood Negative (NEG) Urine Nitrite Negative (NEG) Urine Bilirubin Negative (NEG) Urine Urobilinogen Dipstick 1.0 mg/dL (0.2 mg/dL) Urine Leukocyte Esterase Negative (NEG) Urine RBC Occ /HPF (0-2) Urine WBC 5-10 /HPF (0-4) Urine Squamous Epithelial Cells Many /LPF Urine Amorphous Sediment Present /HPF Urine Bacteria 0 /HPF (0-FEW) Urine Hyaline Casts Occasional /HPF Urine Granular Casts Few /HPF Urine Mucus Mod /LPF Urine Opiates Screen Neg (NEG) Urine Methadone Screen Neg (NEG) Urine Barbiturates Neg (NEG) Urine Phencyclidine Screen Neg (NEG) Urine Amphetamine/Methamphetamine Neg (NEG) Urine Benzodiazepines Screen Neg (NEG) Urine Cocaine Screen Neg (NEG) Urine Cannabinoids Screen Neg (NEG) Urine Ethyl Alcohol Neg (NEG) Heparin Anti-Xa Act, Unfractionated 0.23 IU/mL (0.30-0.70) Glucose (Fingerstick) 289 mg/dL (70-99) Test 04/27/18 09:25 White Blood Count 17.6 x10^3/uL (4.0-11.0) Red Blood Count 3.94 x10^6/uL (3.50-5.40) Hemoglobin 11.0 g/dL (12.0-15.5) Hematocrit 33.6 % (36.0-47.0) Mean Corpuscular Volume 85 fL (79-100) Mean Corpuscular Hemoglobin 28 pg (25-35) Mean Corpuscular Hemoglobin Concent 33 g/dL (31-37) Red Cell Distribution Width 17.0 % (11.5-14.5) Platelet Count 350 x10^3/uL (140-400) Neutrophils (%) (Auto) 85 % (31-73) Lymphocytes (%) (Auto) 7 % (24-48) Monocytes (%) (Auto) 7 % (0-9) Eosinophils (%) (Auto) 1 % (0-3) Basophils (%) (Auto) 0 % (0-3) Neutrophils # (Auto) 15.0 x10^3uL (1.8-7.7) Lymphocytes # (Auto) 1.1 x10^3/uL (1.0-4.8) Monocytes # (Auto) 1.3 x10^3/uL (0.0-1.1) Eosinophils # (Auto) 0.2 x10^3/uL (0.0-0.7) Basophils # (Auto) 0.0 x10^3/uL (0.0-0.2) Sodium Level 131 mmol/L (136-145) Potassium Level 3.7 mmol/L (3.5-5.1) Chloride Level 95 mmol/L (98-107) Carbon Dioxide Level 24 mmol/L (21-32) Anion Gap 12 (6-14) Blood Urea Nitrogen 41 mg/dL (7-20) Creatinine 1.8 mg/dL (0.6-1.0) Estimated GFR (Cockcroft-Gault) 27.4 BUN/Creatinine Ratio 23 (6-20) Glucose Level 335 mg/dL (70-99) Calcium Level 10.1 mg/dL (8.5-10.1) Phosphorus Level 3.7 mg/dL (2.6-4.7) Total Bilirubin 0.6 mg/dL (0.2-1.0) Aspartate Amino Transf (AST/SGOT) 32 U/L (15-37) Alanine Aminotransferase (ALT/SGPT) 22 U/L (14-59) Alkaline Phosphatase 135 U/L (46-116) Troponin I Quantitative 0.078 ng/mL (0.000-0.055) Total Protein 8.3 g/dL (6.4-8.2) Albumin 3.1 g/dL (3.4-5.0) Albumin/Globulin Ratio 0.6 (1.0-1.7) Triglycerides Level 121 mg/dL (0-150) Cholesterol Level 116 mg/dL (0-200) LDL Cholesterol, Calculated 52 mg/dL (0-100) VLDL Cholesterol, Calculated 24 mg/dL (0-40) Non-HDL Cholesterol Calculated 76 mg/dL (0-129) HDL Cholesterol 40 mg/dL (40-60) Cholesterol/HDL Ratio 2.9 Lipase 1082 U/L (73-393) Laboratory Tests Test 04/26/18 18:15 04/27/18 01:30 04/27/18 05:00 04/27/18 07:30 White Blood Count 14.8 x10^3/uL (4.0-11.0) Red Blood Count 4.07 x10^6/uL (3.50-5.40) Hemoglobin 11.1 g/dL (12.0-15.5) Hematocrit 34.4 % (36.0-47.0) Mean Corpuscular Volume 84 fL (79-100) Mean Corpuscular Hemoglobin 27 pg (25-35) Mean Corpuscular Hemoglobin Concent 32 g/dL (31-37) Red Cell Distribution Width 16.8 % (11.5-14.5) Platelet Count 413 x10^3/uL (140-400) Neutrophils (%) (Auto) 78 % (31-73) Lymphocytes (%) (Auto) 11 % (24-48) Monocytes (%) (Auto) 9 % (0-9) Eosinophils (%) (Auto) 1 % (0-3) Basophils (%) (Auto) 1 % (0-3) Neutrophils # (Auto) 11.5 x10^3uL (1.8-7.7) Lymphocytes # (Auto) 1.7 x10^3/uL (1.0-4.8) Monocytes # (Auto) 1.3 x10^3/uL (0.0-1.1) Eosinophils # (Auto) 0.2 x10^3/uL (0.0-0.7) Basophils # (Auto) 0.1 x10^3/uL (0.0-0.2) Prothrombin Time 13.4 SEC (11.7-14.0) Prothromb Time International Ratio 1.1 (0.8-1.1) Activated Partial Thromboplast Time 29 SEC (24-38) D-Dimer (Carissa) 2.65 ug/mlFEU (0.00-0.50) Sodium Level 127 mmol/L (136-145) Potassium Level 3.5 mmol/L (3.5-5.1) Chloride Level 88 mmol/L (98-107) Carbon Dioxide Level 26 mmol/L (21-32) Anion Gap 13 (6-14) Blood Urea Nitrogen 49 mg/dL (7-20) Creatinine 2.3 mg/dL (0.6-1.0) Estimated GFR (Cockcroft-Gault) 20.6 BUN/Creatinine Ratio 21 (6-20) Glucose Level 333 mg/dL (70-99) Calcium Level 10.4 mg/dL (8.5-10.1) Magnesium Level 2.4 mg/dL (1.8-2.4) Total Bilirubin 0.6 mg/dL (0.2-1.0) Aspartate Amino Transf (AST/SGOT) 41 U/L (15-37) Alanine Aminotransferase (ALT/SGPT) 25 U/L (14-59) Alkaline Phosphatase 141 U/L (46-116) Troponin I Quantitative 0.029 ng/mL (0.000-0.055) NI-Afq-Z-Type Natriuretic Peptide 1905 pg/mL (0-449) Total Protein 8.9 g/dL (6.4-8.2) Albumin 3.4 g/dL (3.4-5.0) Albumin/Globulin Ratio 0.6 (1.0-1.7) Lipase 2831 U/L (73-393) Urine Collection Type Unknown Urine Color Yellow Urine Clarity Clear Urine pH 6.0 Urine Specific [place] 1.020 Urine Protein 100 mg/dL (NEG-TRACE) Urine Glucose (UA) >=1000 mg/dL (NEG) Urine Ketones (Stick) Negative mg/dL (NEG) Urine Blood Negative (NEG) Urine Nitrite Negative (NEG) Urine Bilirubin Negative (NEG) Urine Urobilinogen Dipstick 1.0 mg/dL (0.2 mg/dL) Urine Leukocyte Esterase Negative (NEG) Urine RBC Occ /HPF (0-2) Urine WBC 5-10 /HPF (0-4) Urine Squamous Epithelial Cells Many /LPF Urine Amorphous Sediment Present /HPF Urine Bacteria 0 /HPF (0-FEW) Urine Hyaline Casts Occasional /HPF Urine Granular Casts Few /HPF Urine Mucus Mod /LPF Urine Opiates Screen Neg (NEG) Urine Methadone Screen Neg (NEG) Urine Barbiturates Neg (NEG) Urine Phencyclidine Screen Neg (NEG) Urine Amphetamine/Methamphetamine Neg (NEG) Urine Benzodiazepines Screen Neg (NEG) Urine Cocaine Screen Neg (NEG) Urine Cannabinoids Screen Neg (NEG) Urine Ethyl Alcohol Neg (NEG) Heparin Anti-Xa Act, Unfractionated 0.23 IU/mL (0.30-0.70) Glucose (Fingerstick) 289 mg/dL (70-99) Test 04/27/18 09:25 White Blood Count 17.6 x10^3/uL (4.0-11.0) Red Blood Count 3.94 x10^6/uL (3.50-5.40) Hemoglobin 11.0 g/dL (12.0-15.5) Hematocrit 33.6 % (36.0-47.0) Mean Corpuscular Volume 85 fL (79-100) Mean Corpuscular Hemoglobin 28 pg (25-35) Mean Corpuscular Hemoglobin Concent 33 g/dL (31-37) Red Cell Distribution Width 17.0 % (11.5-14.5) Platelet Count 350 x10^3/uL (140-400) Neutrophils (%) (Auto) 85 % (31-73) Lymphocytes (%) (Auto) 7 % (24-48) Monocytes (%) (Auto) 7 % (0-9) Eosinophils (%) (Auto) 1 % (0-3) Basophils (%) (Auto) 0 % (0-3) Neutrophils # (Auto) 15.0 x10^3uL (1.8-7.7) Lymphocytes # (Auto) 1.1 x10^3/uL (1.0-4.8) Monocytes # (Auto) 1.3 x10^3/uL (0.0-1.1) Eosinophils # (Auto) 0.2 x10^3/uL (0.0-0.7) Basophils # (Auto) 0.0 x10^3/uL (0.0-0.2) Sodium Level 131 mmol/L (136-145) Potassium Level 3.7 mmol/L (3.5-5.1) Chloride Level 95 mmol/L (98-107) Carbon Dioxide Level 24 mmol/L (21-32) Anion Gap 12 (6-14) Blood Urea Nitrogen 41 mg/dL (7-20) Creatinine 1.8 mg/dL (0.6-1.0) Estimated GFR (Cockcroft-Gault) 27.4 BUN/Creatinine Ratio 23 (6-20) Glucose Level 335 mg/dL (70-99) Calcium Level 10.1 mg/dL (8.5-10.1) Phosphorus Level 3.7 mg/dL (2.6-4.7) Total Bilirubin 0.6 mg/dL (0.2-1.0) Aspartate Amino Transf (AST/SGOT) 32 U/L (15-37) Alanine Aminotransferase (ALT/SGPT) 22 U/L (14-59) Alkaline Phosphatase 135 U/L (46-116) Troponin I Quantitative 0.078 ng/mL (0.000-0.055) Total Protein 8.3 g/dL (6.4-8.2) Albumin 3.1 g/dL (3.4-5.0) Albumin/Globulin Ratio 0.6 (1.0-1.7) Triglycerides Level 121 mg/dL (0-150) Cholesterol Level 116 mg/dL (0-200) LDL Cholesterol, Calculated 52 mg/dL (0-100) VLDL Cholesterol, Calculated 24 mg/dL (0-40) Non-HDL Cholesterol Calculated 76 mg/dL (0-129) HDL Cholesterol 40 mg/dL (40-60) Cholesterol/HDL Ratio 2.9 Lipase 1082 U/L (73-393) Assessment/Plan Assessment/Plan IMP CHEST PAIN ALLY GLUCOSURIA DEHYDRATION DM II HTN ?PANCREATITIS HYPONATREMIA CAD WITH RECENT PTCA AND STENT ?RIGHT HYDRONEPHROSIS-DOUBT FUNCTIONAL PLAN HYDRATION LASIX RENAL SCAN IF RENAL FXN DOES NOT GET BETTER WITH HYDRATION WILL FOLLOW AMANDA WASSERMAN MD Apr 27, 2018 11:20
--- NOTE | 2018-04-27 11:22 | CARD ---
MR#: [id number] Date of Study: 04/27/2018 Ordering Physician: GILL GALVAN, Referring Physician: FROY AVELAR Tech: Lisbeth Davis RDCS APPROVED REPORT EXAM: Two-dimensional and M-mode echocardiogram with Doppler and color Doppler. Other Information Quality : AverageHR: 100bpm Rhythm : TachycardiaTechnically limited study due to patient being in a lot of pain. INDICATION Congestive Heart Failure 2D DIMENSIONS RVDd2.3 (2.9-3.5cm)Left Atrium(2D)2.9 (1.6-4.0cm) IVSd1.3 (0.7-1.1cm)Aortic Root(2D)2.9 (2.0-3.7cm) LVDd3.2 (3.9-5.9cm)LVOT Diameter2.0 (1.8-2.4cm) PWd1.2 (0.7-1.1cm)LVDs1.8 (2.5-4.0cm) FS (%) 45.9 %SV33.0 ml LVEF(%)78.5 (>50%) M-Mode DIMENSIONS Left Atrium(MM)3.90 (2.5-4.0cm)Aortic Root3.25 (2.2-3.7cm) Aortic Valve AoV Peak Ashutosh.305.6cm/sAoV VTI50.7cm AO Peak GR.37.4mmHgLVOT Peak Ashutosh.126.0cm/s AO Mean GR.19mmHgAVA (VMAX)1.35cm2 JENNA (VTI)1.30cm2 Mitral Valve MV E Gingihhm53.4cm/sMV E Peak Gr.9mmHg MV DECEL [id number] A Fsgsenos469.2cm/s MV E Mean Gr.2mmHgE/A Ratio0.4 MV A [id number] Pulmonary Valve PV Peak Hcjaynlw810.2cm/s LEFT VENTRICLE The left ventricle cavity is small. There is mild concentric left ventricular hypertrophy. Proximal s eptal thickening is noted. The left ventricle is hyperdynamic. The Ejection Fraction is >70%. There i s normal LV segmental wall motion. Transmitral Doppler flow pattern is Grade I-abnormal relaxation pa ttern. RIGHT VENTRICLE The right ventricle is normal size. There is normal right ventricular wall thickness. The right ventr icular systolic function is normal. ATRIA The left atrium size is normal. The right atrium size is normal. The interatrial septum is intact wit h no evidence for an atrial septal defect or patent foramen ovale as noted on 2-D or Doppler imaging. AORTIC VALVE The aortic valve is moderately calcified. Doppler and Color Flow revealed trace aortic regurgitation. Calculated aortic valve area is 1.3 cm2 with maximum pressure gradient of 37 mmHg and mean pressure gradient of 19 mmHg. Doppler and color-flow analysis revealed moderate aortic stenosis. MITRAL VALVE Mitral annular calcification is mild to moderate. There is systolic anterior motion of the mitral gonzález ve. There is no evidence of mitral valve prolapse. There is no mitral valve stenosis. Doppler and Col or-flow revealed trace mitral regurgitation. TRICUSPID VALVE The tricuspid valve is normal in structure and function. Doppler and Color Flow revealed no tricuspid valve regurgitation noted. There is no tricuspid valve prolapse or vegetation. There is no tricuspid valve stenosis. PULMONIC VALVE Pulmonic valve not well visualzied. GREAT VESSELS The aortic root is normal in size. The ascending aorta is normal in size. The IVC is normal in size a nd collapses >50% with inspiration. PERICARDIAL EFFUSION There is no evidence of significant pericardial effusion. Critical Notification Critical Value: No <Conclusion> The left ventricle is hyperdynamic. The Ejection Fraction is >70%. There is normal LV segmental wall motion. Transmitral Doppler flow pattern is Grade I-abnormal relaxation pattern. Moderate aortic stenosis. Trace mitral regurgitation. There is no evidence of significant pericardial effusion. Signed by : David Mart, Electronically Approved : 04/27/2018 11:20:33
[2018-04-27] MEDS: IV NORMAL SALINE 1000ML BAG 1,000 ML IV SCH (11:30)
[2018-04-27 11:52] LABS: % EOS 3 % (0-5); % LYMPHS 5 % (24-48); % MONOS 4 % (0-10); % SEGS 88 % (35-66); PLT ESTIMATE ADEQUATE (ADEQUATE); TOXIC VACUOLATION SLIGHT
--- NOTE | 2018-04-27 13:17 | PDOC ---
PROGRESS NOTES Chief Complaint Chief Complaint acute renal failure, vasomotor nephropathy likely, hypovolemic hyponatremia acute pancreatitis, w./ u SIRS, w/ acute pain, pancreas dysfunction Dm2, poor control, check A1c, add SSI, some hyperosmolar non-ketosis would also explain lytes nausea and vomiting and abd pain CAD, hx CHF, is s/p cardiac cath x2 this month, was not stented at [facility], then one was placed at [facility]. falls, chest contusion, weakness and debility, History of Present Illness History of Present Illness discussed with GI, check MRCP, concern for malignancy from history cont current Vitals Vitals Vital Signs Date Time Temp Pulse Resp B/P (MAP) Pulse Ox O2 Delivery O2 Flow Rate FiO2 04/27/18 13:00 22 04/27/18 11:00 98.2 95 149/67 (94) 98 Nasal Cannula 2.0 98.2 Physical Exam General: Alert, Oriented X3, Cooperative, No acute distress Heart: Regular rate, Normal S1, Normal S2 Abdomen: Normal bowel sounds, Soft, No tenderness Extremities: No clubbing, No cyanosis Skin: No breakdown Labs LABS Laboratory Tests Test 04/26/18 18:15 04/27/18 01:30 04/27/18 05:00 04/27/18 07:30 White Blood Count 14.8 x10^3/uL (4.0-11.0) Red Blood Count 4.07 x10^6/uL (3.50-5.40) Hemoglobin 11.1 g/dL (12.0-15.5) Hematocrit 34.4 % (36.0-47.0) Mean Corpuscular Volume 84 fL (79-100) Mean Corpuscular Hemoglobin 27 pg (25-35) Mean Corpuscular Hemoglobin Concent 32 g/dL (31-37) Red Cell Distribution Width 16.8 % (11.5-14.5) Platelet Count 413 x10^3/uL (140-400) Neutrophils (%) (Auto) 78 % (31-73) Lymphocytes (%) (Auto) 11 % (24-48) Monocytes (%) (Auto) 9 % (0-9) Eosinophils (%) (Auto) 1 % (0-3) Basophils (%) (Auto) 1 % (0-3) Neutrophils # (Auto) 11.5 x10^3uL (1.8-7.7) Lymphocytes # (Auto) 1.7 x10^3/uL (1.0-4.8) Monocytes # (Auto) 1.3 x10^3/uL (0.0-1.1) Eosinophils # (Auto) 0.2 x10^3/uL (0.0-0.7) Basophils # (Auto) 0.1 x10^3/uL (0.0-0.2) Prothrombin Time 13.4 SEC (11.7-14.0) Prothromb Time International Ratio 1.1 (0.8-1.1) Activated Partial Thromboplast Time 29 SEC (24-38) D-Dimer (Carissa) 2.65 ug/mlFEU (0.00-0.50) Sodium Level 127 mmol/L (136-145) Potassium Level 3.5 mmol/L (3.5-5.1) Chloride Level 88 mmol/L (98-107) Carbon Dioxide Level 26 mmol/L (21-32) Anion Gap 13 (6-14) Blood Urea Nitrogen 49 mg/dL (7-20) Creatinine 2.3 mg/dL (0.6-1.0) Estimated GFR (Cockcroft-Gault) 20.6 BUN/Creatinine Ratio 21 (6-20) Glucose Level 333 mg/dL (70-99) Calcium Level 10.4 mg/dL (8.5-10.1) Magnesium Level 2.4 mg/dL (1.8-2.4) Total Bilirubin 0.6 mg/dL (0.2-1.0) Aspartate Amino Transf (AST/SGOT) 41 U/L (15-37) Alanine Aminotransferase (ALT/SGPT) 25 U/L (14-59) Alkaline Phosphatase 141 U/L (46-116) Troponin I Quantitative 0.029 ng/mL (0.000-0.055) JY-Ssw-N-Type Natriuretic Peptide 1905 pg/mL (0-449) Total Protein 8.9 g/dL (6.4-8.2) Albumin 3.4 g/dL (3.4-5.0) Albumin/Globulin Ratio 0.6 (1.0-1.7) Lipase 2831 U/L (73-393) Urine Collection Type Unknown Urine Color Yellow Urine Clarity Clear Urine pH 6.0 Urine Specific Flushing 1.020 Urine Protein 100 mg/dL (NEG-TRACE) Urine Glucose (UA) >=1000 mg/dL (NEG) Urine Ketones (Stick) Negative mg/dL (NEG) Urine Blood Negative (NEG) Urine Nitrite Negative (NEG) Urine Bilirubin Negative (NEG) Urine Urobilinogen Dipstick 1.0 mg/dL (0.2 mg/dL) Urine Leukocyte Esterase Negative (NEG) Urine RBC Occ /HPF (0-2) Urine WBC 5-10 /HPF (0-4) Urine Squamous Epithelial Cells Many /LPF Urine Amorphous Sediment Present /HPF Urine Bacteria 0 /HPF (0-FEW) Urine Hyaline Casts Occasional /HPF Urine Granular Casts Few /HPF Urine Mucus Mod /LPF Urine Opiates Screen Neg (NEG) Urine Methadone Screen Neg (NEG) Urine Barbiturates Neg (NEG) Urine Phencyclidine Screen Neg (NEG) Urine Amphetamine/Methamphetamine Neg (NEG) Urine Benzodiazepines Screen Neg (NEG) Urine Cocaine Screen Neg (NEG) Urine Cannabinoids Screen Neg (NEG) Urine Ethyl Alcohol Neg (NEG) Heparin Anti-Xa Act, Unfractionated 0.23 IU/mL (0.30-0.70) Glucose (Fingerstick) 289 mg/dL (70-99) Test 04/27/18 09:25 04/27/18 12:07 White Blood Count 17.6 x10^3/uL (4.0-11.0) Red Blood Count 3.94 x10^6/uL (3.50-5.40) Hemoglobin 11.0 g/dL (12.0-15.5) Hematocrit 33.6 % (36.0-47.0) Mean Corpuscular Volume 85 fL (79-100) Mean Corpuscular Hemoglobin 28 pg (25-35) Mean Corpuscular Hemoglobin Concent 33 g/dL (31-37) Red Cell Distribution Width 17.0 % (11.5-14.5) Platelet Count 350 x10^3/uL (140-400) Neutrophils (%) (Auto) 85 % (31-73) Lymphocytes (%) (Auto) 7 % (24-48) Monocytes (%) (Auto) 7 % (0-9) Eosinophils (%) (Auto) 1 % (0-3) Basophils (%) (Auto) 0 % (0-3) Neutrophils # (Auto) 15.0 x10^3uL (1.8-7.7) Lymphocytes # (Auto) 1.1 x10^3/uL (1.0-4.8) Monocytes # (Auto) 1.3 x10^3/uL (0.0-1.1) Eosinophils # (Auto) 0.2 x10^3/uL (0.0-0.7) Basophils # (Auto) 0.0 x10^3/uL (0.0-0.2) Segmented Neutrophils % 88 % (35-66) Lymphocytes % 5 % (24-48) Monocytes % 4 % (0-10) Eosinophils % 3 % (0-5) Toxic Vacuolation Slight Platelet Estimate Adequate (ADEQUATE) Sodium Level 131 mmol/L (136-145) Potassium Level 3.7 mmol/L (3.5-5.1) Chloride Level 95 mmol/L (98-107) Carbon Dioxide Level 24 mmol/L (21-32) Anion Gap 12 (6-14) Blood Urea Nitrogen 41 mg/dL (7-20) Creatinine 1.8 mg/dL (0.6-1.0) Estimated GFR (Cockcroft-Gault) 27.4 BUN/Creatinine Ratio 23 (6-20) Glucose Level 335 mg/dL (70-99) Calcium Level 10.1 mg/dL (8.5-10.1) Phosphorus Level 3.7 mg/dL (2.6-4.7) Total Bilirubin 0.6 mg/dL (0.2-1.0) Aspartate Amino Transf (AST/SGOT) 32 U/L (15-37) Alanine Aminotransferase (ALT/SGPT) 22 U/L (14-59) Alkaline Phosphatase 135 U/L (46-116) Creatine Kinase 82 U/L (26-192) Troponin I Quantitative 0.078 ng/mL (0.000-0.055) Total Protein 8.3 g/dL (6.4-8.2) Albumin 3.1 g/dL (3.4-5.0) Albumin/Globulin Ratio 0.6 (1.0-1.7) Triglycerides Level 121 mg/dL (0-150) Cholesterol Level 116 mg/dL (0-200) LDL Cholesterol, Calculated 52 mg/dL (0-100) VLDL Cholesterol, Calculated 24 mg/dL (0-40) Non-HDL Cholesterol Calculated 76 mg/dL (0-129) HDL Cholesterol 40 mg/dL (40-60) Cholesterol/HDL Ratio 2.9 Lipase 1082 U/L (73-393) Glucose (Fingerstick) 312 mg/dL (70-99) Assessment and Plan Assessmemt and Plan Problems Medical Problems: (1) Acute pancreatitis Status: Acute (2) Chest pain Status: Acute Comment Review of Relevant I have reviewed the following items hugh (where applicable) has been applied. Labs Laboratory Tests Test 04/26/18 18:15 04/27/18 01:30 04/27/18 05:00 04/27/18 07:30 White Blood Count 14.8 x10^3/uL (4.0-11.0) Red Blood Count 4.07 x10^6/uL (3.50-5.40) Hemoglobin 11.1 g/dL (12.0-15.5) Hematocrit 34.4 % (36.0-47.0) Mean Corpuscular Volume 84 fL (79-100) Mean Corpuscular Hemoglobin 27 pg (25-35) Mean Corpuscular Hemoglobin Concent 32 g/dL (31-37) Red Cell Distribution Width 16.8 % (11.5-14.5) Platelet Count 413 x10^3/uL (140-400) Neutrophils (%) (Auto) 78 % (31-73) Lymphocytes (%) (Auto) 11 % (24-48) Monocytes (%) (Auto) 9 % (0-9) Eosinophils (%) (Auto) 1 % (0-3) Basophils (%) (Auto) 1 % (0-3) Neutrophils # (Auto) 11.5 x10^3uL (1.8-7.7) Lymphocytes # (Auto) 1.7 x10^3/uL (1.0-4.8) Monocytes # (Auto) 1.3 x10^3/uL (0.0-1.1) Eosinophils # (Auto) 0.2 x10^3/uL (0.0-0.7) Basophils # (Auto) 0.1 x10^3/uL (0.0-0.2) Prothrombin Time 13.4 SEC (11.7-14.0) Prothromb Time International Ratio 1.1 (0.8-1.1) Activated Partial Thromboplast Time 29 SEC (24-38) D-Dimer (Carissa) 2.65 ug/mlFEU (0.00-0.50) Sodium Level 127 mmol/L (136-145) Potassium Level 3.5 mmol/L (3.5-5.1) Chloride Level 88 mmol/L (98-107) Carbon Dioxide Level 26 mmol/L (21-32) Anion Gap 13 (6-14) Blood Urea Nitrogen 49 mg/dL (7-20) Creatinine 2.3 mg/dL (0.6-1.0) Estimated GFR (Cockcroft-Gault) 20.6 BUN/Creatinine Ratio 21 (6-20) Glucose Level 333 mg/dL (70-99) Calcium Level 10.4 mg/dL (8.5-10.1) Magnesium Level 2.4 mg/dL (1.8-2.4) Total Bilirubin 0.6 mg/dL (0.2-1.0) Aspartate Amino Transf (AST/SGOT) 41 U/L (15-37) Alanine Aminotransferase (ALT/SGPT) 25 U/L (14-59) Alkaline Phosphatase 141 U/L (46-116) Troponin I Quantitative 0.029 ng/mL (0.000-0.055) LN-Izw-H-Type Natriuretic Peptide 1905 pg/mL (0-449) Total Protein 8.9 g/dL (6.4-8.2) Albumin 3.4 g/dL (3.4-5.0) Albumin/Globulin Ratio 0.6 (1.0-1.7) Lipase 2831 U/L (73-393) Urine Collection Type Unknown Urine Color Yellow Urine Clarity Clear Urine pH 6.0 Urine Specific Flushing 1.020 Urine Protein 100 mg/dL (NEG-TRACE) Urine Glucose (UA) >=1000 mg/dL (NEG) Urine Ketones (Stick) Negative mg/dL (NEG) Urine Blood Negative (NEG) Urine Nitrite Negative (NEG) Urine Bilirubin Negative (NEG) Urine Urobilinogen Dipstick 1.0 mg/dL (0.2 mg/dL) Urine Leukocyte Esterase Negative (NEG) Urine RBC Occ /HPF (0-2) Urine WBC 5-10 /HPF (0-4) Urine Squamous Epithelial Cells Many /LPF Urine Amorphous Sediment Present /HPF Urine Bacteria 0 /HPF (0-FEW) Urine Hyaline Casts Occasional /HPF Urine Granular Casts Few /HPF Urine Mucus Mod /LPF Urine Opiates Screen Neg (NEG) Urine Methadone Screen Neg (NEG) Urine Barbiturates Neg (NEG) Urine Phencyclidine Screen Neg (NEG) Urine Amphetamine/Methamphetamine Neg (NEG) Urine Benzodiazepines Screen Neg (NEG) Urine Cocaine Screen Neg (NEG) Urine Cannabinoids Screen Neg (NEG) Urine Ethyl Alcohol Neg (NEG) Heparin Anti-Xa Act, Unfractionated 0.23 IU/mL (0.30-0.70) Glucose (Fingerstick) 289 mg/dL (70-99) Test 04/27/18 09:25 04/27/18 12:07 White Blood Count 17.6 x10^3/uL (4.0-11.0) Red Blood Count 3.94 x10^6/uL (3.50-5.40) Hemoglobin 11.0 g/dL (12.0-15.5) Hematocrit 33.6 % (36.0-47.0) Mean Corpuscular Volume 85 fL (79-100) Mean Corpuscular Hemoglobin 28 pg (25-35) Mean Corpuscular Hemoglobin Concent 33 g/dL (31-37) Red Cell Distribution Width 17.0 % (11.5-14.5) Platelet Count 350 x10^3/uL (140-400) Neutrophils (%) (Auto) 85 % (31-73) Lymphocytes (%) (Auto) 7 % (24-48) Monocytes (%) (Auto) 7 % (0-9) Eosinophils (%) (Auto) 1 % (0-3) Basophils (%) (Auto) 0 % (0-3) Neutrophils # (Auto) 15.0 x10^3uL (1.8-7.7) Lymphocytes # (Auto) 1.1 x10^3/uL (1.0-4.8) Monocytes # (Auto) 1.3 x10^3/uL (0.0-1.1) Eosinophils # (Auto) 0.2 x10^3/uL (0.0-0.7) Basophils # (Auto) 0.0 x10^3/uL (0.0-0.2) Segmented Neutrophils % 88 % (35-66) Lymphocytes % 5 % (24-48) Monocytes % 4 % (0-10) Eosinophils % 3 % (0-5) Toxic Vacuolation Slight Platelet Estimate Adequate (ADEQUATE) Sodium Level 131 mmol/L (136-145) Potassium Level 3.7 mmol/L (3.5-5.1) Chloride Level 95 mmol/L (98-107) Carbon Dioxide Level 24 mmol/L (21-32) Anion Gap 12 (6-14) Blood Urea Nitrogen 41 mg/dL (7-20) Creatinine 1.8 mg/dL (0.6-1.0) Estimated GFR (Cockcroft-Gault) 27.4 BUN/Creatinine Ratio 23 (6-20) Glucose Level 335 mg/dL (70-99) Calcium Level 10.1 mg/dL (8.5-10.1) Phosphorus Level 3.7 mg/dL (2.6-4.7) Total Bilirubin 0.6 mg/dL (0.2-1.0) Aspartate Amino Transf (AST/SGOT) 32 U/L (15-37) Alanine Aminotransferase (ALT/SGPT) 22 U/L (14-59) Alkaline Phosphatase 135 U/L (46-116) Creatine Kinase 82 U/L (26-192) Troponin I Quantitative 0.078 ng/mL (0.000-0.055) Total Protein 8.3 g/dL (6.4-8.2) Albumin 3.1 g/dL (3.4-5.0) Albumin/Globulin Ratio 0.6 (1.0-1.7) Triglycerides Level 121 mg/dL (0-150) Cholesterol Level 116 mg/dL (0-200) LDL Cholesterol, Calculated 52 mg/dL (0-100) VLDL Cholesterol, Calculated 24 mg/dL (0-40) Non-HDL Cholesterol Calculated 76 mg/dL (0-129) HDL Cholesterol 40 mg/dL (40-60) Cholesterol/HDL Ratio 2.9 Lipase 1082 U/L (73-393) Glucose (Fingerstick) 312 mg/dL (70-99) Laboratory Tests Test 04/26/18 18:15 04/27/18 01:30 04/27/18 05:00 04/27/18 07:30 White Blood Count 14.8 x10^3/uL (4.0-11.0) Red Blood Count 4.07 x10^6/uL (3.50-5.40) Hemoglobin 11.1 g/dL (12.0-15.5) Hematocrit 34.4 % (36.0-47.0) Mean Corpuscular Volume 84 fL (79-100) Mean Corpuscular Hemoglobin 27 pg (25-35) Mean Corpuscular Hemoglobin Concent 32 g/dL (31-37) Red Cell Distribution Width 16.8 % (11.5-14.5) Platelet Count 413 x10^3/uL (140-400) Neutrophils (%) (Auto) 78 % (31-73) Lymphocytes (%) (Auto) 11 % (24-48) Monocytes (%) (Auto) 9 % (0-9) Eosinophils (%) (Auto) 1 % (0-3) Basophils (%) (Auto) 1 % (0-3) Neutrophils # (Auto) 11.5 x10^3uL (1.8-7.7) Lymphocytes # (Auto) 1.7 x10^3/uL (1.0-4.8) Monocytes # (Auto) 1.3 x10^3/uL (0.0-1.1) Eosinophils # (Auto) 0.2 x10^3/uL (0.0-0.7) Basophils # (Auto) 0.1 x10^3/uL (0.0-0.2) Prothrombin Time 13.4 SEC (11.7-14.0) Prothromb Time International Ratio 1.1 (0.8-1.1) Activated Partial Thromboplast Time 29 SEC (24-38) D-Dimer (Carissa) 2.65 ug/mlFEU (0.00-0.50) Sodium Level 127 mmol/L (136-145) Potassium Level 3.5 mmol/L (3.5-5.1) Chloride Level 88 mmol/L (98-107) Carbon Dioxide Level 26 mmol/L (21-32) Anion Gap 13 (6-14) Blood Urea Nitrogen 49 mg/dL (7-20) Creatinine 2.3 mg/dL (0.6-1.0) Estimated GFR (Cockcroft-Gault) 20.6 BUN/Creatinine Ratio 21 (6-20) Glucose Level 333 mg/dL (70-99) Calcium Level 10.4 mg/dL (8.5-10.1) Magnesium Level 2.4 mg/dL (1.8-2.4) Total Bilirubin 0.6 mg/dL (0.2-1.0) Aspartate Amino Transf (AST/SGOT) 41 U/L (15-37) Alanine Aminotransferase (ALT/SGPT) 25 U/L (14-59) Alkaline Phosphatase 141 U/L (46-116) Troponin I Quantitative 0.029 ng/mL (0.000-0.055) AE-Owe-T-Type Natriuretic Peptide 1905 pg/mL (0-449) Total Protein 8.9 g/dL (6.4-8.2) Albumin 3.4 g/dL (3.4-5.0) Albumin/Globulin Ratio 0.6 (1.0-1.7) Lipase 2831 U/L (73-393) Urine Collection Type Unknown Urine Color Yellow Urine Clarity Clear Urine pH 6.0 Urine Specific Flushing 1.020 Urine Protein 100 mg/dL (NEG-TRACE) Urine Glucose (UA) >=1000 mg/dL (NEG) Urine Ketones (Stick) Negative mg/dL (NEG) Urine Blood Negative (NEG) Urine Nitrite Negative (NEG) Urine Bilirubin Negative (NEG) Urine Urobilinogen Dipstick 1.0 mg/dL (0.2 mg/dL) Urine Leukocyte Esterase Negative (NEG) Urine RBC Occ /HPF (0-2) Urine WBC 5-10 /HPF (0-4) Urine Squamous Epithelial Cells Many /LPF Urine Amorphous Sediment Present /HPF Urine Bacteria 0 /HPF (0-FEW) Urine Hyaline Casts Occasional /HPF Urine Granular Casts Few /HPF Urine Mucus Mod /LPF Urine Opiates Screen Neg (NEG) Urine Methadone Screen Neg (NEG) Urine Barbiturates Neg (NEG) Urine Phencyclidine Screen Neg (NEG) Urine Amphetamine/Methamphetamine Neg (NEG) Urine Benzodiazepines Screen Neg (NEG) Urine Cocaine Screen Neg (NEG) Urine Cannabinoids Screen Neg (NEG) Urine Ethyl Alcohol Neg (NEG) Heparin Anti-Xa Act, Unfractionated 0.23 IU/mL (0.30-0.70) Glucose (Fingerstick) 289 mg/dL (70-99) Test 04/27/18 09:25 04/27/18 12:07 White Blood Count 17.6 x10^3/uL (4.0-11.0) Red Blood Count 3.94 x10^6/uL (3.50-5.40) Hemoglobin 11.0 g/dL (12.0-15.5) Hematocrit 33.6 % (36.0-47.0) Mean Corpuscular Volume 85 fL (79-100) Mean Corpuscular Hemoglobin 28 pg (25-35) Mean Corpuscular Hemoglobin Concent 33 g/dL (31-37) Red Cell Distribution Width 17.0 % (11.5-14.5) Platelet Count 350 x10^3/uL (140-400) Neutrophils (%) (Auto) 85 % (31-73) Lymphocytes (%) (Auto) 7 % (24-48) Monocytes (%) (Auto) 7 % (0-9) Eosinophils (%) (Auto) 1 % (0-3) Basophils (%) (Auto) 0 % (0-3) Neutrophils # (Auto) 15.0 x10^3uL (1.8-7.7) Lymphocytes # (Auto) 1.1 x10^3/uL (1.0-4.8) Monocytes # (Auto) 1.3 x10^3/uL (0.0-1.1) Eosinophils # (Auto) 0.2 x10^3/uL (0.0-0.7) Basophils # (Auto) 0.0 x10^3/uL (0.0-0.2) Segmented Neutrophils % 88 % (35-66) Lymphocytes % 5 % (24-48) Monocytes % 4 % (0-10) Eosinophils % 3 % (0-5) Toxic Vacuolation Slight Platelet Estimate Adequate (ADEQUATE) Sodium Level 131 mmol/L (136-145) Potassium Level 3.7 mmol/L (3.5-5.1) Chloride Level 95 mmol/L (98-107) Carbon Dioxide Level 24 mmol/L (21-32) Anion Gap 12 (6-14) Blood Urea Nitrogen 41 mg/dL (7-20) Creatinine 1.8 mg/dL (0.6-1.0) Estimated GFR (Cockcroft-Gault) 27.4 BUN/Creatinine Ratio 23 (6-20) Glucose Level 335 mg/dL (70-99) Calcium Level 10.1 mg/dL (8.5-10.1) Phosphorus Level 3.7 mg/dL (2.6-4.7) Total Bilirubin 0.6 mg/dL (0.2-1.0) Aspartate Amino Transf (AST/SGOT) 32 U/L (15-37) Alanine Aminotransferase (ALT/SGPT) 22 U/L (14-59) Alkaline Phosphatase 135 U/L (46-116) Creatine Kinase 82 U/L (26-192) Troponin I Quantitative 0.078 ng/mL (0.000-0.055) Total Protein 8.3 g/dL (6.4-8.2) Albumin 3.1 g/dL (3.4-5.0) Albumin/Globulin Ratio 0.6 (1.0-1.7) Triglycerides Level 121 mg/dL (0-150) Cholesterol Level 116 mg/dL (0-200) LDL Cholesterol, Calculated 52 mg/dL (0-100) VLDL Cholesterol, Calculated 24 mg/dL (0-40) Non-HDL Cholesterol Calculated 76 mg/dL (0-129) HDL Cholesterol 40 mg/dL (40-60) Cholesterol/HDL Ratio 2.9 Lipase 1082 U/L (73-393) Glucose (Fingerstick) 312 mg/dL (70-99) Medications Current Medications Sodium Chloride 1,000 ml @ 100 mls/hr Q10H IV Last administered on 04/26/18at 18:59; Start 04/26/18 at 18:13; Stop 04/27/18 at 04:12; Status DC Enoxaparin Sodium (Lovenox 60mg Syringe) 60 mg 1X ONCE SQ ; Start 04/26/18 at 19:45; Stop 04/26/18 at 19:46; Status Cancel Heparin Sodium/ Dextrose 500 ml @ 0 mls/hr CONT PRN IV SEE I/O RECORD; Start at 20:00; Stop 04/26/18 at 20:01; Status DC Ondansetron HCl (Zofran) 4 mg PRN Q8HRS PRN IV NAUSEA/VOMITING; Start 04/26/18 at 20:00; Stop 04/27/18 at 19:59 Fentanyl Citrate (Fentanyl 2ml Vial) 50 mcg PRN Q1HR PRN IV PAIN Last administered on 04/27/18at 13:00; Start 04/26/18 at 20:00; Stop 04/27/18 at 19:59 Heparin Sodium/ Dextrose 500 ml @ 0 mls/hr CONT PRN IV SEE I/O RECORD Last administered on 04/26/18at 22:59; Start 04/26/18 at 20:00 Heparin Sodium (Porcine) (Heparin Sodium) 1,800 unit PRN Q6HRS PRN IV FOR UFH LEVEL LESS THAN 0.2 Last administered on 04/26/18at 22:52; Start 04/26/18 at 20: 00 Heparin Sodium (Porcine) (Heparin Sodium) 900 unit PRN Q6HRS PRN IV FOR UFH LEVEL 0.2 - 0.29 Last administered on 04/27/18 08:16; Start 04/26/18 at 20:00 Insulin Human Lispro (HumaLOG) 0-9 UNITS TIDWMEALS SQ Last administered on 04/27 08:26; Start 04/27/18 at 08:00 Dextrose (Dextrose 50%-Water Syringe) 12.5 gm PRN Q15MIN PRN IV SEE COMMENTS; Start 04/26/18 at 20:30 Labetalol HCl (Normodyne Iv Push) 20 mg PRN Q2HR PRN IVP HYPERTENSION, SEE COMMENTS; Start 04/26/18 at 20:45 Saliva Substitute (Biotene Moisturizing Mouth) 2 spray PRN Q15MIN PRN PO DRY MOUTH; Start 04/26/18 at 20:45 Lidocaine (Lidoderm) 1 patch DAILY TD Last administered on 04/27/18at 08:14; Start 04/27/18 at 09:00 Miscellaneous (Lidoderm Patch Removal) 1 ea QHS MC Last administered on at 21:00; Start 04/26/18 at 21:00 Pharmacy Consult (C.diff Med Screen By Rx) 1 each 1X ONCE MC ; Start 04/27/18 at 09:00; Stop 04/27/18 at 09:01; Status Cancel Info (Anti-Coagulation Monitoring By Pharmacy) 1 each PRN DAILY PRN MC SEE COMMENTS; Start 04/27/18 at 08:15 Aspirin (Ecotrin) 81 mg DAILYWBKFT PO Last administered on 04/27/18at 11:15; Start 04/27/18 at 10:00 Ticagrelor (Brilinta) 90 mg BID PO Last administered on 04/27/18at 11:16; Start 04/27/18 at 10:00 Insulin Glargine (Lantus) 14 units DAILY10 SQ Last administered on 04/27/18at 11 :12; Start 04/27/18 at 11:00 Pantoprazole Sodium (Protonix) 40 mg DAILYAC PO Last administered on 04/27/18at 11:16; Start 04/27/18 at 11:00 Lactobacillus Rhamnosus (Culturelle) 1 cap BID PO ; Start 04/27/18 at 21:00 Sodium Chloride 1,000 ml @ 100 mls/hr Q10H IV Last administered on 04/27/18at 11:30; Start 04/27/18 at 11:30 Active Scripts Active Reported Santyl Ointment (Collagenase) 30 Gm Oint...g. 1 Rose TP DAILY DIRECTED BY PHYSICIAN Tramadol Hcl 50 Mg Tablet 50 Mg PO Q6HRS PRN Lisinopril 2.5 Mg Tablet 1 Tab PO DAILY Crestor (Rosuvastatin Calcium) 20 Mg Tablet 20 Mg PO HS Isosorbide Mononitrate Er (Isosorbide Mononitrate) 30 Mg Tab.er.24h 1 Tab PO DAILY Gabapentin 600 Mg Tablet 300 Mg PO HS Gabapentin 600 Mg Tablet 100 Mg PO NOON Gabapentin 600 Mg Tablet 200 Mg PO DAILYWBKFT Nitrofurantoin (Nitrofurantoin Macrocrystal) 100 Mg Capsule 1 Cap PO BID Metoprolol Tartrate 25 Mg Tablet 1 Tab PO BID Brilinta (Ticagrelor) 90 Mg Tablet 90 Mg PO BID Bumetanide 2 Mg Tablet 1 Tab PO DAILY NITROGLYCERIN SubLingual (Nitroglycerin) 0.4 Mg Tab.subl 0.4 Mg SL PRN Q5MIN PRN Cyclobenzaprine Hcl 10 Mg Tablet 1 Tab PO BID Advair 250-50 Diskus (Fluticasone/Salmeterol) 1 Each Disk.w.dev 1 Puff IH BID Vitals/I & O Vital Sign - Last 24 Hours 04/26/18 04/26/18 04/26/18 04/26/18 18:00 18:06 18:36 19:06 Temp 95.9 95.9 Pulse 89 88 83 87 Resp 23 B/P (MAP) 184/73 (110) 184/73 (110) 175/74 (107) 169/72 (104) Pulse Ox 100 94 95 O2 Delivery Room Air 04/26/18 04/26/18 04/26/18 04/27/18 20:29 20:59 21:29 02:15 Pulse 87 87 88 B/P (MAP) 128/59 (82) 175/76 (109) 157/70 (99) O2 Delivery Room Air 04/27/18 04/27/18 04/27/18 04/27/18 03:05 03:46 07:04 11:00 Temp 98.3 98.5 98.2 98.3 98.5 98.2 Pulse 91 90 92 95 Resp 17 18 18 B/P (MAP) 181/77 (111) 172/74 (106) 124/56 (78) 149/67 (94) Pulse Ox 98 98 98 O2 Delivery Nasal Cannula Nasal Cannula Nasal Cannula O2 Flow Rate 2.0 2.0 2.0 04/27/18 13:00 Resp 22 Intake and Output 04/26/18 04/26/18 04/27/18 15:01 23:01 07:01 Intake Total 60 ml Output Total 300 ml Balance -240 ml FROY AVELAR MD Apr 27, 2018 13:17
--- NOTE | 2018-04-27 15:30 | PDOC2 ---
UROLOGY CONSULT Date of Admission DATE: 04/27/18 TIME: 15:18 Chief Complaint no gu c/o Source: Chart review, Patient Admitted for presumed pancreatitis causing abs pain and n/v. Cr 2.3 range while on admission with NAI and CT a/p w suggestion of right hydro. No prior stones, no renal colic, no gh. ROS ROS: RESPIRATORY: Shortness of breath denies. Cough denies. UROLOGY: Denies blood in urine. Denies difficulty urinating Past Surgical History: Cataract Removal, Total knee replacement, Other (toe amputation) Current Medications Current Medications Sodium Chloride 1,000 ml @ 100 mls/hr Q10H IV Last administered on 04/26/18at 18:59; Start 04/26/18 at 18:13; Stop 04/27/18 at 04:12; Status DC Enoxaparin Sodium (Lovenox 60mg Syringe) 60 mg 1X ONCE SQ ; Start 04/26/18 at 19:45; Stop 04/26/18 at 19:46; Status Cancel Heparin Sodium/ Dextrose 500 ml @ 0 mls/hr CONT PRN IV SEE I/O RECORD; Start at 20:00; Stop 04/26/18 at 20:01; Status DC Ondansetron HCl (Zofran) 4 mg PRN Q8HRS PRN IV NAUSEA/VOMITING; Start 04/26/18 at 20:00; Stop 04/27/18 at 19:59 Fentanyl Citrate (Fentanyl 2ml Vial) 50 mcg PRN Q1HR PRN IV PAIN Last administered on 04/27/18at 13:00; Start 04/26/18 at 20:00; Stop 04/27/18 at 19:59 Heparin Sodium/ Dextrose 500 ml @ 0 mls/hr CONT PRN IV SEE I/O RECORD Last administered on 04/26/18at 22:59; Start 04/26/18 at 20:00; Stop 04/27/18 at 13:58 ; Status DC Heparin Sodium (Porcine) (Heparin Sodium) 1,800 unit PRN Q6HRS PRN IV FOR UFH LEVEL LESS THAN 0.2 Last administered on 04/26/18at 22:52; Start 04/26/18 at 20: 00; Stop 04/27/18 at 13:59; Status DC Heparin Sodium (Porcine) (Heparin Sodium) 900 unit PRN Q6HRS PRN IV FOR UFH LEVEL 0.2 - 0.29 Last administered on 04/27/18 08:16; Start 04/26/18 at 20:00; Stop 04/27/18 at 13:59; Status DC Insulin Human Lispro (HumaLOG) 0-9 UNITS TIDWMEALS SQ Last administered on 04/27at 08:26; Start 04/27/18 at 08:00 Dextrose (Dextrose 50%-Water Syringe) 12.5 gm PRN Q15MIN PRN IV SEE COMMENTS; Start 04/26/18 at 20:30 Labetalol HCl (Normodyne Iv Push) 20 mg PRN Q2HR PRN IVP HYPERTENSION, SEE COMMENTS; Start 04/26/18 at 20:45 Saliva Substitute (Biotene Moisturizing Mouth) 2 spray PRN Q15MIN PRN PO DRY MOUTH; Start 04/26/18 at 20:45 Lidocaine (Lidoderm) 1 patch DAILY TD Last administered on 04/27/18at 08:14; Start 04/27/18 at 09:00 Miscellaneous (Lidoderm Patch Removal) 1 ea QHS MC Last administered on at 21:00; Start 04/26/18 at 21:00 Pharmacy Consult (C.diff Med Screen By Rx) 1 each 1X ONCE MC ; Start 04/27/18 at 09:00; Stop 04/27/18 at 09:01; Status Cancel Info (Anti-Coagulation Monitoring By Pharmacy) 1 each PRN DAILY PRN MC SEE COMMENTS; Start 04/27/18 at 08:15; Stop 04/27/18 at 13:59; Status DC Aspirin (Ecotrin) 81 mg DAILYWBKFT PO Last administered on 04/27/18at 11:15; Start 04/27/18 at 10:00 Ticagrelor (Brilinta) 90 mg BID PO Last administered on 04/27/18at 11:16; Start 04/27/18 at 10:00 Insulin Glargine (Lantus) 14 units DAILY10 SQ Last administered on 04/27/18at 11 :12; Start 04/27/18 at 11:00 Pantoprazole Sodium (Protonix) 40 mg DAILYAC PO Last administered on 04/27/18at 11:16; Start 04/27/18 at 11:00 Lactobacillus Rhamnosus (Culturelle) 1 cap BID PO ; Start 04/27/18 at 21:00 Sodium Chloride 1,000 ml @ 100 mls/hr Q10H IV Last administered on 04/27/18at 11:30; Start 04/27/18 at 11:30 Active Scripts Active Reported Santyl Ointment (Collagenase) 30 Gm Oint...g. 1 Rose TP DAILY DIRECTED BY PHYSICIAN Tramadol Hcl 50 Mg Tablet 50 Mg PO Q6HRS PRN Lisinopril 2.5 Mg Tablet 1 Tab PO DAILY Crestor (Rosuvastatin Calcium) 20 Mg Tablet 20 Mg PO HS Isosorbide Mononitrate Er (Isosorbide Mononitrate) 30 Mg Tab.er.24h 1 Tab PO DAILY Gabapentin 600 Mg Tablet 300 Mg PO HS Gabapentin 600 Mg Tablet 100 Mg PO NOON Gabapentin 600 Mg Tablet 200 Mg PO DAILYWBKFT Nitrofurantoin (Nitrofurantoin Macrocrystal) 100 Mg Capsule 1 Cap PO BID Metoprolol Tartrate 25 Mg Tablet 1 Tab PO BID Brilinta (Ticagrelor) 90 Mg Tablet 90 Mg PO BID Bumetanide 2 Mg Tablet 1 Tab PO DAILY NITROGLYCERIN SubLingual (Nitroglycerin) 0.4 Mg Tab.subl 0.4 Mg SL PRN Q5MIN PRN Cyclobenzaprine Hcl 10 Mg Tablet 1 Tab PO BID Advair 250-50 Diskus (Fluticasone/Salmeterol) 1 Each Disk.w.dev 1 Puff IH BID Allergies: Coded Allergies: Penicillins (Verified Allergy, Intermediate, 04/26/18) levofloxacin (Verified Allergy, Intermediate, 04/26/18) morphine (Verified Allergy, Intermediate, 04/26/18) vancomycin (Verified Allergy, Unknown, Itching, 04/27/18) Physical Examination PHYSICAL EXAMINATION: GENERAL: Gen. appearance: No acute distress. Mood/affect: Pleasant. HEENT: Head: Normocephalic, atraumatic. Airway Impairment: No. CHEST: Shape and expansion: Normal. Expansion: Normal. SKIN: General: Warm. Color: Good. GENITOURINARY:External genitalia - wnl. NEUROLOGICAL: Mental status: Alert and oriented �3. Language: Normal. VITALS Vital Signs Date Time Temp Pulse Resp B/P (MAP) Pulse Ox O2 Delivery O2 Flow Rate FiO2 04/27/18 13:00 22 04/27/18 11:00 98.2 95 149/67 (94) 98 Nasal Cannula 2.0 98.2 Labs Laboratory Tests Test 04/26/18 18:15 04/27/18 01:30 04/27/18 05:00 04/27/18 07:30 White Blood Count 14.8 x10^3/uL (4.0-11.0) Red Blood Count 4.07 x10^6/uL (3.50-5.40) Hemoglobin 11.1 g/dL (12.0-15.5) Hematocrit 34.4 % (36.0-47.0) Mean Corpuscular Volume 84 fL (79-100) Mean Corpuscular Hemoglobin 27 pg (25-35) Mean Corpuscular Hemoglobin Concent 32 g/dL (31-37) Red Cell Distribution Width 16.8 % (11.5-14.5) Platelet Count 413 x10^3/uL (140-400) Neutrophils (%) (Auto) 78 % (31-73) Lymphocytes (%) (Auto) 11 % (24-48) Monocytes (%) (Auto) 9 % (0-9) Eosinophils (%) (Auto) 1 % (0-3) Basophils (%) (Auto) 1 % (0-3) Neutrophils # (Auto) 11.5 x10^3uL (1.8-7.7) Lymphocytes # (Auto) 1.7 x10^3/uL (1.0-4.8) Monocytes # (Auto) 1.3 x10^3/uL (0.0-1.1) Eosinophils # (Auto) 0.2 x10^3/uL (0.0-0.7) Basophils # (Auto) 0.1 x10^3/uL (0.0-0.2) Prothrombin Time 13.4 SEC (11.7-14.0) Prothromb Time International Ratio 1.1 (0.8-1.1) Activated Partial Thromboplast Time 29 SEC (24-38) D-Dimer (Carissa) 2.65 ug/mlFEU (0.00-0.50) Sodium Level 127 mmol/L (136-145) Potassium Level 3.5 mmol/L (3.5-5.1) Chloride Level 88 mmol/L (98-107) Carbon Dioxide Level 26 mmol/L (21-32) Anion Gap 13 (6-14) Blood Urea Nitrogen 49 mg/dL (7-20) Creatinine 2.3 mg/dL (0.6-1.0) Estimated GFR (Cockcroft-Gault) 20.6 BUN/Creatinine Ratio 21 (6-20) Glucose Level 333 mg/dL (70-99) Calcium Level 10.4 mg/dL (8.5-10.1) Magnesium Level 2.4 mg/dL (1.8-2.4) Total Bilirubin 0.6 mg/dL (0.2-1.0) Aspartate Amino Transf (AST/SGOT) 41 U/L (15-37) Alanine Aminotransferase (ALT/SGPT) 25 U/L (14-59) Alkaline Phosphatase 141 U/L (46-116) Troponin I Quantitative 0.029 ng/mL (0.000-0.055) XH-Dnw-W-Type Natriuretic Peptide 1905 pg/mL (0-449) Total Protein 8.9 g/dL (6.4-8.2) Albumin 3.4 g/dL (3.4-5.0) Albumin/Globulin Ratio 0.6 (1.0-1.7) Lipase 2831 U/L (73-393) Urine Collection Type Unknown Urine Color Yellow Urine Clarity Clear Urine pH 6.0 Urine Specific [place]sworth 1.020 Urine Protein 100 mg/dL (NEG-TRACE) Urine Glucose (UA) >=1000 mg/dL (NEG) Urine Ketones (Stick) Negative mg/dL (NEG) Urine Blood Negative (NEG) Urine Nitrite Negative (NEG) Urine Bilirubin Negative (NEG) Urine Urobilinogen Dipstick 1.0 mg/dL (0.2 mg/dL) Urine Leukocyte Esterase Negative (NEG) Urine RBC Occ /HPF (0-2) Urine WBC 5-10 /HPF (0-4) Urine Squamous Epithelial Cells Many /LPF Urine Amorphous Sediment Present /HPF Urine Bacteria 0 /HPF (0-FEW) Urine Hyaline Casts Occasional /HPF Urine Granular Casts Few /HPF Urine Mucus Mod /LPF Urine Opiates Screen Neg (NEG) Urine Methadone Screen Neg (NEG) Urine Barbiturates Neg (NEG) Urine Phencyclidine Screen Neg (NEG) Urine Amphetamine/Methamphetamine Neg (NEG) Urine Benzodiazepines Screen Neg (NEG) Urine Cocaine Screen Neg (NEG) Urine Cannabinoids Screen Neg (NEG) Urine Ethyl Alcohol Neg (NEG) Heparin Anti-Xa Act, Unfractionated 0.23 IU/mL (0.30-0.70) Glucose (Fingerstick) 289 mg/dL (70-99) Test 04/27/18 09:25 04/27/18 12:07 White Blood Count 17.6 x10^3/uL (4.0-11.0) Red Blood Count 3.94 x10^6/uL (3.50-5.40) Hemoglobin 11.0 g/dL (12.0-15.5) Hematocrit 33.6 % (36.0-47.0) Mean Corpuscular Volume 85 fL (79-100) Mean Corpuscular Hemoglobin 28 pg (25-35) Mean Corpuscular Hemoglobin Concent 33 g/dL (31-37) Red Cell Distribution Width 17.0 % (11.5-14.5) Platelet Count 350 x10^3/uL (140-400) Neutrophils (%) (Auto) 85 % (31-73) Lymphocytes (%) (Auto) 7 % (24-48) Monocytes (%) (Auto) 7 % (0-9) Eosinophils (%) (Auto) 1 % (0-3) Basophils (%) (Auto) 0 % (0-3) Neutrophils # (Auto) 15.0 x10^3uL (1.8-7.7) Lymphocytes # (Auto) 1.1 x10^3/uL (1.0-4.8) Monocytes # (Auto) 1.3 x10^3/uL (0.0-1.1) Eosinophils # (Auto) 0.2 x10^3/uL (0.0-0.7) Basophils # (Auto) 0.0 x10^3/uL (0.0-0.2) Segmented Neutrophils % 88 % (35-66) Lymphocytes % 5 % (24-48) Monocytes % 4 % (0-10) Eosinophils % 3 % (0-5) Toxic Vacuolation Slight Platelet Estimate Adequate (ADEQUATE) Sodium Level 131 mmol/L (136-145) Potassium Level 3.7 mmol/L (3.5-5.1) Chloride Level 95 mmol/L (98-107) Carbon Dioxide Level 24 mmol/L (21-32) Anion Gap 12 (6-14) Blood Urea Nitrogen 41 mg/dL (7-20) Creatinine 1.8 mg/dL (0.6-1.0) Estimated GFR (Cockcroft-Gault) 27.4 BUN/Creatinine Ratio 23 (6-20) Glucose Level 335 mg/dL (70-99) Calcium Level 10.1 mg/dL (8.5-10.1) Phosphorus Level 3.7 mg/dL (2.6-4.7) Total Bilirubin 0.6 mg/dL (0.2-1.0) Aspartate Amino Transf (AST/SGOT) 32 U/L (15-37) Alanine Aminotransferase (ALT/SGPT) 22 U/L (14-59) Alkaline Phosphatase 135 U/L (46-116) Creatine Kinase 82 U/L (26-192) Troponin I Quantitative 0.078 ng/mL (0.000-0.055) Total Protein 8.3 g/dL (6.4-8.2) Albumin 3.1 g/dL (3.4-5.0) Albumin/Globulin Ratio 0.6 (1.0-1.7) Triglycerides Level 121 mg/dL (0-150) Cholesterol Level 116 mg/dL (0-200) LDL Cholesterol, Calculated 52 mg/dL (0-100) VLDL Cholesterol, Calculated 24 mg/dL (0-40) Non-HDL Cholesterol Calculated 76 mg/dL (0-129) HDL Cholesterol 40 mg/dL (40-60) Cholesterol/HDL Ratio 2.9 Lipase 1082 U/L (73-393) Glucose (Fingerstick) 312 mg/dL (70-99) Laboratory Tests Test 04/26/18 18:15 04/27/18 01:30 04/27/18 05:00 04/27/18 07:30 White Blood Count 14.8 x10^3/uL (4.0-11.0) Red Blood Count 4.07 x10^6/uL (3.50-5.40) Hemoglobin 11.1 g/dL (12.0-15.5) Hematocrit 34.4 % (36.0-47.0) Mean Corpuscular Volume 84 fL (79-100) Mean Corpuscular Hemoglobin 27 pg (25-35) Mean Corpuscular Hemoglobin Concent 32 g/dL (31-37) Red Cell Distribution Width 16.8 % (11.5-14.5) Platelet Count 413 x10^3/uL (140-400) Neutrophils (%) (Auto) 78 % (31-73) Lymphocytes (%) (Auto) 11 % (24-48) Monocytes (%) (Auto) 9 % (0-9) Eosinophils (%) (Auto) 1 % (0-3) Basophils (%) (Auto) 1 % (0-3) Neutrophils # (Auto) 11.5 x10^3uL (1.8-7.7) Lymphocytes # (Auto) 1.7 x10^3/uL (1.0-4.8) Monocytes # (Auto) 1.3 x10^3/uL (0.0-1.1) Eosinophils # (Auto) 0.2 x10^3/uL (0.0-0.7) Basophils # (Auto) 0.1 x10^3/uL (0.0-0.2) Prothrombin Time 13.4 SEC (11.7-14.0) Prothromb Time International Ratio 1.1 (0.8-1.1) Activated Partial Thromboplast Time 29 SEC (24-38) D-Dimer (Carissa) 2.65 ug/mlFEU (0.00-0.50) Sodium Level 127 mmol/L (136-145) Potassium Level 3.5 mmol/L (3.5-5.1) Chloride Level 88 mmol/L (98-107) Carbon Dioxide Level 26 mmol/L (21-32) Anion Gap 13 (6-14) Blood Urea Nitrogen 49 mg/dL (7-20) Creatinine 2.3 mg/dL (0.6-1.0) Estimated GFR (Cockcroft-Gault) 20.6 BUN/Creatinine Ratio 21 (6-20) Glucose Level 333 mg/dL (70-99) Calcium Level 10.4 mg/dL (8.5-10.1) Magnesium Level 2.4 mg/dL (1.8-2.4) Total Bilirubin 0.6 mg/dL (0.2-1.0) Aspartate Amino Transf (AST/SGOT) 41 U/L (15-37) Alanine Aminotransferase (ALT/SGPT) 25 U/L (14-59) Alkaline Phosphatase 141 U/L (46-116) Troponin I Quantitative 0.029 ng/mL (0.000-0.055) BA-Ing-T-Type Natriuretic Peptide 1905 pg/mL (0-449) Total Protein 8.9 g/dL (6.4-8.2) Albumin 3.4 g/dL (3.4-5.0) Albumin/Globulin Ratio 0.6 (1.0-1.7) Lipase 2831 U/L (73-393) Urine Collection Type Unknown Urine Color Yellow Urine Clarity Clear Urine pH 6.0 Urine Specific [place]sworth 1.020 Urine Protein 100 mg/dL (NEG-TRACE) Urine Glucose (UA) >=1000 mg/dL (NEG) Urine Ketones (Stick) Negative mg/dL (NEG) Urine Blood Negative (NEG) Urine Nitrite Negative (NEG) Urine Bilirubin Negative (NEG) Urine Urobilinogen Dipstick 1.0 mg/dL (0.2 mg/dL) Urine Leukocyte Esterase Negative (NEG) Urine RBC Occ /HPF (0-2) Urine WBC 5-10 /HPF (0-4) Urine Squamous Epithelial Cells Many /LPF Urine Amorphous Sediment Present /HPF Urine Bacteria 0 /HPF (0-FEW) Urine Hyaline Casts Occasional /HPF Urine Granular Casts Few /HPF Urine Mucus Mod /LPF Urine Opiates Screen Neg (NEG) Urine Methadone Screen Neg (NEG) Urine Barbiturates Neg (NEG) Urine Phencyclidine Screen Neg (NEG) Urine Amphetamine/Methamphetamine Neg (NEG) Urine Benzodiazepines Screen Neg (NEG) Urine Cocaine Screen Neg (NEG) Urine Cannabinoids Screen Neg (NEG) Urine Ethyl Alcohol Neg (NEG) Heparin Anti-Xa Act, Unfractionated 0.23 IU/mL (0.30-0.70) Glucose (Fingerstick) 289 mg/dL (70-99) Test 04/27/18 09:25 04/27/18 12:07 White Blood Count 17.6 x10^3/uL (4.0-11.0) Red Blood Count 3.94 x10^6/uL (3.50-5.40) Hemoglobin 11.0 g/dL (12.0-15.5) Hematocrit 33.6 % (36.0-47.0) Mean Corpuscular Volume 85 fL (79-100) Mean Corpuscular Hemoglobin 28 pg (25-35) Mean Corpuscular Hemoglobin Concent 33 g/dL (31-37) Red Cell Distribution Width 17.0 % (11.5-14.5) Platelet Count 350 x10^3/uL (140-400) Neutrophils (%) (Auto) 85 % (31-73) Lymphocytes (%) (Auto) 7 % (24-48) Monocytes (%) (Auto) 7 % (0-9) Eosinophils (%) (Auto) 1 % (0-3) Basophils (%) (Auto) 0 % (0-3) Neutrophils # (Auto) 15.0 x10^3uL (1.8-7.7) Lymphocytes # (Auto) 1.1 x10^3/uL (1.0-4.8) Monocytes # (Auto) 1.3 x10^3/uL (0.0-1.1) Eosinophils # (Auto) 0.2 x10^3/uL (0.0-0.7) Basophils # (Auto) 0.0 x10^3/uL (0.0-0.2) Segmented Neutrophils % 88 % (35-66) Lymphocytes % 5 % (24-48) Monocytes % 4 % (0-10) Eosinophils % 3 % (0-5) Toxic Vacuolation Slight Platelet Estimate Adequate (ADEQUATE) Sodium Level 131 mmol/L (136-145) Potassium Level 3.7 mmol/L (3.5-5.1) Chloride Level 95 mmol/L (98-107) Carbon Dioxide Level 24 mmol/L (21-32) Anion Gap 12 (6-14) Blood Urea Nitrogen 41 mg/dL (7-20) Creatinine 1.8 mg/dL (0.6-1.0) Estimated GFR (Cockcroft-Gault) 27.4 BUN/Creatinine Ratio 23 (6-20) Glucose Level 335 mg/dL (70-99) Calcium Level 10.1 mg/dL (8.5-10.1) Phosphorus Level 3.7 mg/dL (2.6-4.7) Total Bilirubin 0.6 mg/dL (0.2-1.0) Aspartate Amino Transf (AST/SGOT) 32 U/L (15-37) Alanine Aminotransferase (ALT/SGPT) 22 U/L (14-59) Alkaline Phosphatase 135 U/L (46-116) Creatine Kinase 82 U/L (26-192) Troponin I Quantitative 0.078 ng/mL (0.000-0.055) Total Protein 8.3 g/dL (6.4-8.2) Albumin 3.1 g/dL (3.4-5.0) Albumin/Globulin Ratio 0.6 (1.0-1.7) Triglycerides Level 121 mg/dL (0-150) Cholesterol Level 116 mg/dL (0-200) LDL Cholesterol, Calculated 52 mg/dL (0-100) VLDL Cholesterol, Calculated 24 mg/dL (0-40) Non-HDL Cholesterol Calculated 76 mg/dL (0-129) HDL Cholesterol 40 mg/dL (40-60) Cholesterol/HDL Ratio 2.9 Lipase 1082 U/L (73-393) Glucose (Fingerstick) 312 mg/dL (70-99) Assessment/Plan Right extra renal pelvis. Physiological, not obstructive. Clinically not very significant. Abnormal CT a/p. Calcification is outside ureter, no hydro. Available for ?. Past Medical History Past Medical History: COPD, High Cholesterol, Hypertension, Hypothyroid, [place] Additional Past Medical Histor: NEUROPATHY, CHRONIC PAIN BEVERLEY MCGOVERN MD Apr 27, 2018 15:30
--- NOTE | 2018-04-27 15:30 | RAD ---
MRI ABDOMEN W/O CONTRAST: MRCP Clinical Indication: ABDOMINAL PAIN, NO SX HX, Comparison: CT abdomen and pelvis without contrast, prior day. Technique: Multiplanar multiple pulse sequence imaging of the abdomen was performed, including T2 thin slab images through the biliary tree, without contrast. 3-D volume rendering images constructed to better evaluate the biliary tree anatomy. Findings: Respiratory motion artifact degrades image quality. The extrahepatic bile duct is normal caliber, without intraluminal filling defect or acute truncation. There is no intrahepatic duct dilation. The pancreatic duct in the pancreas head is upper limits of normal in caliber measuring 3 mm. No gallbladder wall thickening, pericholecystic fluid, or cholelithiasis. No fatty infiltration of the liver. Spleen size normal. Pancreas unremarkable. Adrenal glands are normal. Mild bilateral perinephric stranding, can be a normal variant in a patient of this age. Tiny cortical cysts of the kidneys. Right extrarenal pelvis. No evidence of bowel obstruction. IMPRESSION: Biliary tree is normal caliber. No choledocholithiasis. Electronically signed by: Parveen Escalona MD (04/27/2018 3:25 PM) [id number]
[2018-04-27] MEDS: oxyCODONE/APAP 7.5/325 1 TAB TABLET PO PRN ×2 (16:14→22:36)
[2018-04-27 19:16] LABS: HEMOGLOBIN A1C 8.9 % (4.8-5.6)
[2018-04-27] MEDS: LACTOBACILLUS RHAMNOSUS GG 1 CAPSULE. PO SCH (20:48)
[2018-04-27] MEDS: PATCH REMOVAL. MC SCH (20:56)
[2018-04-27] MEDS: LABETALOL 20 MG/4 ML DISP.SYRIN. IVP PRN (23:16)
[2018-04-28 03:00] VITALS: BP 137/65
[2018-04-28] MEDS: IV NORMAL SALINE 1000ML BAG 1,000 ML IV SCH ×3 (04:11→17:13)
[2018-04-28 06:13] LABS: HEMATOCRIT 35.1 % (36.0-47.0); HEMOGLOBIN 10.9 g/dL (12.0-15.5); RED BLOOD COUNT 4.04 x10^6/uL (3.50-5.40); RED CELL DISTRIBUTION WIDTH 18.1 % (11.5-14.5)
[2018-04-28 06:27] LABS: CALCIUM 9.5 mg/dL (8.5-10.1); CREATININE 1.5 mg/dL (0.6-1.0); GFR 33.8; POTASSIUM 3.4 mmol/L (3.5-5.1)
[2018-04-28 07:00] VITALS: BP 128/51
[2018-04-28] MEDS: INSULIN LISPRO 300 UNITS/3 ML INSULN.PEN. SQ SCH ×3 (08:00→17:19)
[2018-04-28 11:00] VITALS: BP 124/58
--- NOTE | 2018-04-28 13:15 | PDOC ---
PROGRESS NOTES Subjective Subjective Patient seen and examined The patient looks and feels better today. Objective Objective Vital Signs Date Time Temp Pulse Resp B/P (MAP) Pulse Ox O2 Delivery O2 Flow Rate FiO2 04/28/18 11:00 98.4 88 16 124/58 (80) 98 Room Air 98.4 04/28/18 08:00 2.0 Intake and Output 04/28/18 07:01 Intake Total 1060 ml Output Total 1200 ml Balance -140 ml Intake Oral 60 ml IV Total 1000 ml Output Urine Total 1200 ml Physical Exam Abdomen: Normal bowel sounds Heart: Regular rate General: No acute distress Lungs: Clear to auscultation Assessment Assessment Problems Medical Problems: (1) Acute pancreatitis Status: Acute (2) Chest pain Status: Acute Atypical chest pain. Recent fall. Pain is reproducible. No significant elevation in cardiac enzymes. Echocardiogram shows normal systolic function and moderate aortic stenosis. We'll continue present treatments. 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 Coronary artery disease. Stent placement one month ago at [facility]. No elevation in cardiac enzymes. Continue present medications. Status post amputation as noted above. Abdominal pain with possible pancreatitis. GI workup in progress. Probable chronic diastolic heart failure. Compensated. Chronic kidney disease. Hypertension improving on present treatments. Diabetes mellitus as per the primary service. Comment Review of Relevant I have reviewed the following items hugh (where applicable) has been applied. Labs Laboratory Tests Test 04/26/18 18:15 04/27/18 01:30 04/27/18 05:00 04/27/18 07:30 White Blood Count 14.8 x10^3/uL (4.0-11.0) Red Blood Count 4.07 x10^6/uL (3.50-5.40) Hemoglobin 11.1 g/dL (12.0-15.5) Hematocrit 34.4 % (36.0-47.0) Mean Corpuscular Volume 84 fL (79-100) Mean Corpuscular Hemoglobin 27 pg (25-35) Mean Corpuscular Hemoglobin Concent 32 g/dL (31-37) Red Cell Distribution Width 16.8 % (11.5-14.5) Platelet Count 413 x10^3/uL (140-400) Neutrophils (%) (Auto) 78 % (31-73) Lymphocytes (%) (Auto) 11 % (24-48) Monocytes (%) (Auto) 9 % (0-9) Eosinophils (%) (Auto) 1 % (0-3) Basophils (%) (Auto) 1 % (0-3) Neutrophils # (Auto) 11.5 x10^3uL (1.8-7.7) Lymphocytes # (Auto) 1.7 x10^3/uL (1.0-4.8) Monocytes # (Auto) 1.3 x10^3/uL (0.0-1.1) Eosinophils # (Auto) 0.2 x10^3/uL (0.0-0.7) Basophils # (Auto) 0.1 x10^3/uL (0.0-0.2) Prothrombin Time 13.4 SEC (11.7-14.0) Prothromb Time International Ratio 1.1 (0.8-1.1) Activated Partial Thromboplast Time 29 SEC (24-38) D-Dimer (Carissa) 2.65 ug/mlFEU (0.00-0.50) Sodium Level 127 mmol/L (136-145) Potassium Level 3.5 mmol/L (3.5-5.1) Chloride Level 88 mmol/L (98-107) Carbon Dioxide Level 26 mmol/L (21-32) Anion Gap 13 (6-14) Blood Urea Nitrogen 49 mg/dL (7-20) Creatinine 2.3 mg/dL (0.6-1.0) Estimated GFR (Cockcroft-Gault) 20.6 BUN/Creatinine Ratio 21 (6-20) Glucose Level 333 mg/dL (70-99) Calcium Level 10.4 mg/dL (8.5-10.1) Magnesium Level 2.4 mg/dL (1.8-2.4) Total Bilirubin 0.6 mg/dL (0.2-1.0) Aspartate Amino Transf (AST/SGOT) 41 U/L (15-37) Alanine Aminotransferase (ALT/SGPT) 25 U/L (14-59) Alkaline Phosphatase 141 U/L (46-116) Troponin I Quantitative 0.029 ng/mL (0.000-0.055) DK-Qzm-A-Type Natriuretic Peptide 1905 pg/mL (0-449) Total Protein 8.9 g/dL (6.4-8.2) Albumin 3.4 g/dL (3.4-5.0) Albumin/Globulin Ratio 0.6 (1.0-1.7) Lipase 2831 U/L (73-393) Urine Collection Type Unknown Urine Color Yellow Urine Clarity Clear Urine pH 6.0 Urine Specific [place] 1.020 Urine Protein 100 mg/dL (NEG-TRACE) Urine Glucose (UA) >=1000 mg/dL (NEG) Urine Ketones (Stick) Negative mg/dL (NEG) Urine Blood Negative (NEG) Urine Nitrite Negative (NEG) Urine Bilirubin Negative (NEG) Urine Urobilinogen Dipstick 1.0 mg/dL (0.2 mg/dL) Urine Leukocyte Esterase Negative (NEG) Urine RBC Occ /HPF (0-2) Urine WBC 5-10 /HPF (0-4) Urine Squamous Epithelial Cells Many /LPF Urine Amorphous Sediment Present /HPF Urine Bacteria 0 /HPF (0-FEW) Urine Hyaline Casts Occasional /HPF Urine Granular Casts Few /HPF Urine Mucus Mod /LPF Urine Opiates Screen Neg (NEG) Urine Methadone Screen Neg (NEG) Urine Barbiturates Neg (NEG) Urine Phencyclidine Screen Neg (NEG) Urine Amphetamine/Methamphetamine Neg (NEG) Urine Benzodiazepines Screen Neg (NEG) Urine Cocaine Screen Neg (NEG) Urine Cannabinoids Screen Neg (NEG) Urine Ethyl Alcohol Neg (NEG) Heparin Anti-Xa Act, Unfractionated 0.23 IU/mL (0.30-0.70) Glucose (Fingerstick) 289 mg/dL (70-99) Test 04/27/18 09:25 04/27/18 12:07 04/27/18 17:33 04/27/18 20:50 White Blood Count 17.6 x10^3/uL (4.0-11.0) Red Blood Count 3.94 x10^6/uL (3.50-5.40) Hemoglobin 11.0 g/dL (12.0-15.5) Hematocrit 33.6 % (36.0-47.0) Mean Corpuscular Volume 85 fL (79-100) Mean Corpuscular Hemoglobin 28 pg (25-35) Mean Corpuscular Hemoglobin Concent 33 g/dL (31-37) Red Cell Distribution Width 17.0 % (11.5-14.5) Platelet Count 350 x10^3/uL (140-400) Neutrophils (%) (Auto) 85 % (31-73) Lymphocytes (%) (Auto) 7 % (24-48) Monocytes (%) (Auto) 7 % (0-9) Eosinophils (%) (Auto) 1 % (0-3) Basophils (%) (Auto) 0 % (0-3) Neutrophils # (Auto) 15.0 x10^3uL (1.8-7.7) Lymphocytes # (Auto) 1.1 x10^3/uL (1.0-4.8) Monocytes # (Auto) 1.3 x10^3/uL (0.0-1.1) Eosinophils # (Auto) 0.2 x10^3/uL (0.0-0.7) Basophils # (Auto) 0.0 x10^3/uL (0.0-0.2) Segmented Neutrophils % 88 % (35-66) Lymphocytes % 5 % (24-48) Monocytes % 4 % (0-10) Eosinophils % 3 % (0-5) Toxic Vacuolation Slight Platelet Estimate Adequate (ADEQUATE) Sodium Level 131 mmol/L (136-145) Potassium Level 3.7 mmol/L (3.5-5.1) Chloride Level 95 mmol/L (98-107) Carbon Dioxide Level 24 mmol/L (21-32) Anion Gap 12 (6-14) Blood Urea Nitrogen 41 mg/dL (7-20) Creatinine 1.8 mg/dL (0.6-1.0) Estimated GFR (Cockcroft-Gault) 27.4 BUN/Creatinine Ratio 23 (6-20) Glucose Level 335 mg/dL (70-99) Hemoglobin A1c 8.9 % (4.8-5.6) Calcium Level 10.1 mg/dL (8.5-10.1) Phosphorus Level 3.7 mg/dL (2.6-4.7) Total Bilirubin 0.6 mg/dL (0.2-1.0) Aspartate Amino Transf (AST/SGOT) 32 U/L (15-37) Alanine Aminotransferase (ALT/SGPT) 22 U/L (14-59) Alkaline Phosphatase 135 U/L (46-116) Creatine Kinase 82 U/L (26-192) Troponin I Quantitative 0.078 ng/mL (0.000-0.055) Total Protein 8.3 g/dL (6.4-8.2) Albumin 3.1 g/dL (3.4-5.0) Albumin/Globulin Ratio 0.6 (1.0-1.7) Triglycerides Level 121 mg/dL (0-150) Cholesterol Level 116 mg/dL (0-200) LDL Cholesterol, Calculated 52 mg/dL (0-100) VLDL Cholesterol, Calculated 24 mg/dL (0-40) Non-HDL Cholesterol Calculated 76 mg/dL (0-129) HDL Cholesterol 40 mg/dL (40-60) Cholesterol/HDL Ratio 2.9 Lipase 1082 U/L (73-393) Glucose (Fingerstick) 312 mg/dL (70-99) 262 mg/dL (70-99) 157 mg/dL (70-99) Test 04/28/18 04:30 04/28/18 07:34 04/28/18 11:08 White Blood Count 13.0 x10^3/uL (4.0-11.0) Red Blood Count 4.04 x10^6/uL (3.50-5.40) Hemoglobin 10.9 g/dL (12.0-15.5) Hematocrit 35.1 % (36.0-47.0) Mean Corpuscular Volume 87 fL (79-100) Mean Corpuscular Hemoglobin 27 pg (25-35) Mean Corpuscular Hemoglobin Concent 31 g/dL (31-37) Red Cell Distribution Width 18.1 % (11.5-14.5) Platelet Count 292 x10^3/uL (140-400) Sodium Level 134 mmol/L (136-145) Potassium Level 3.4 mmol/L (3.5-5.1) Chloride Level 98 mmol/L (98-107) Carbon Dioxide Level 24 mmol/L (21-32) Anion Gap 12 (6-14) Blood Urea Nitrogen 34 mg/dL (7-20) Creatinine 1.5 mg/dL (0.6-1.0) Estimated GFR (Cockcroft-Gault) 33.8 Glucose Level 183 mg/dL (70-99) Calcium Level 9.5 mg/dL (8.5-10.1) Magnesium Level 2.5 mg/dL (1.8-2.4) Lipase 512 U/L (73-393) Glucose (Fingerstick) 182 mg/dL (70-99) 212 mg/dL (70-99) Laboratory Tests Test 04/27/18 17:33 04/27/18 20:50 04/28/18 04:30 04/28/18 07:34 Glucose (Fingerstick) 262 mg/dL (70-99) 157 mg/dL (70-99) 182 mg/dL (70-99) White Blood Count 13.0 x10^3/uL (4.0-11.0) Red Blood Count 4.04 x10^6/uL (3.50-5.40) Hemoglobin 10.9 g/dL (12.0-15.5) Hematocrit 35.1 % (36.0-47.0) Mean Corpuscular Volume 87 fL (79-100) Mean Corpuscular Hemoglobin 27 pg (25-35) Mean Corpuscular Hemoglobin Concent 31 g/dL (31-37) Red Cell Distribution Width 18.1 % (11.5-14.5) Platelet Count 292 x10^3/uL (140-400) Sodium Level 134 mmol/L (136-145) Potassium Level 3.4 mmol/L (3.5-5.1) Chloride Level 98 mmol/L (98-107) Carbon Dioxide Level 24 mmol/L (21-32) Anion Gap 12 (6-14) Blood Urea Nitrogen 34 mg/dL (7-20) Creatinine 1.5 mg/dL (0.6-1.0) Estimated GFR (Cockcroft-Gault) 33.8 Glucose Level 183 mg/dL (70-99) Calcium Level 9.5 mg/dL (8.5-10.1) Magnesium Level 2.5 mg/dL (1.8-2.4) Lipase 512 U/L (73-393) Test 04/28/18 11:08 Glucose (Fingerstick) 212 mg/dL (70-99) Medications Current Medications Sodium Chloride 1,000 ml @ 100 mls/hr Q10H IV Last administered on 04/26/18at 18:59; Start 04/26/18 at 18:13; Stop 04/27/18 at 04:12; Status DC Enoxaparin Sodium (Lovenox 60mg Syringe) 60 mg 1X ONCE SQ ; Start 04/26/18 at 19:45; Stop 04/26/18 at 19:46; Status Cancel Heparin Sodium/ Dextrose 500 ml @ 0 mls/hr CONT PRN IV SEE I/O RECORD; Start at 20:00; Stop 04/26/18 at 20:01; Status DC Ondansetron HCl (Zofran) 4 mg PRN Q8HRS PRN IV NAUSEA/VOMITING; Start 04/26/18 at 20:00; Stop 04/27/18 at 19:59; Status DC Fentanyl Citrate (Fentanyl 2ml Vial) 50 mcg PRN Q1HR PRN IV PAIN Last administered on 04/27/18at 13:00; Start 04/26/18 at 20:00; Stop 04/27/18 at 19:59 ; Status DC Heparin Sodium/ Dextrose 500 ml @ 0 mls/hr CONT PRN IV SEE I/O RECORD Last administered on 04/26/18at 22:59; Start 04/26/18 at 20:00; Stop 04/27/18 at 13:58 ; Status DC Heparin Sodium (Porcine) (Heparin Sodium) 1,800 unit PRN Q6HRS PRN IV FOR UFH LEVEL LESS THAN 0.2 Last administered on 04/26/18at 22:52; Start 04/26/18 at 20: 00; Stop 04/27/18 at 13:59; Status DC Heparin Sodium (Porcine) (Heparin Sodium) 900 unit PRN Q6HRS PRN IV FOR UFH LEVEL 0.2 - 0.29 Last administered on 04/27/18at 08:16; Start 04/26/18 at 20:00; Stop 04/27/18 at 13:59; Status DC Insulin Human Lispro (HumaLOG) 0-9 UNITS TIDWMEALS SQ Last administered on 04/27at 17:46; Start 04/27/18 at 08:00 Dextrose (Dextrose 50%-Water Syringe) 12.5 gm PRN Q15MIN PRN IV SEE COMMENTS; Start 04/26/18 at 20:30 Labetalol HCl (Normodyne Iv Push) 20 mg PRN Q2HR PRN IVP HYPERTENSION, SEE COMMENTS Last administered on 04/27/18at 23:16; Start 04/26/18 at 20:45 Saliva Substitute (Biotene Moisturizing Mouth) 2 spray PRN Q15MIN PRN PO DRY MOUTH; Start 04/26/18 at 20:45 Lidocaine (Lidoderm) 1 patch DAILY TD Last administered on 04/27/18 08:14; Start 04/27/18 at 09:00 Miscellaneous (Lidoderm Patch Removal) 1 ea QHS MC Last administered on at 20:56; Start 04/26/18 at 21:00 Pharmacy Consult (C.diff Med Screen By Rx) 1 each 1X ONCE MC ; Start 04/27/18 at 09:00; Stop 04/27/18 at 09:01; Status Cancel Info (Anti-Coagulation Monitoring By Pharmacy) 1 each PRN DAILY PRN MC SEE COMMENTS; Start 04/27/18 at 08:15; Stop 04/27/18 at 13:59; Status DC Aspirin (Ecotrin) 81 mg DAILYWBKFT PO Last administered on 04/27/18at 11:15; Start 04/27/18 at 10:00 Ticagrelor (Brilinta) 90 mg BID PO Last administered on 04/27/18at 20:48; Start 04/27/18 at 10:00 Insulin Glargine (Lantus) 14 units DAILY10 SQ Last administered on 04/27/18 11 :12; Start 04/27/18 at 11:00 Pantoprazole Sodium (Protonix) 40 mg DAILYAC PO Last administered on 04/27/18 11:16; Start 04/27/18 at 11:00 Lactobacillus Rhamnosus (Culturelle) 1 cap BID PO Last administered on at 20:48; Start 04/27/18 at 21:00 Sodium Chloride 1,000 ml @ 100 mls/hr Q10H IV Last administered on 04/28/18at 04:11; Start 04/27/18 at 11:30 Oxycodone/ Acetaminophen (Percocet 7.5/ 325) 1 tab PRN Q4HRS PRN PO PAIN Last administered on 04/27/18at 22:36; Start 04/27/18 at 16:00 Active Scripts Active Reported Santyl Ointment (Collagenase) 30 Gm Oint...g. 1 Rose TP DAILY DIRECTED BY PHYSICIAN Tramadol Hcl 50 Mg Tablet 50 Mg PO Q6HRS PRN Lisinopril 2.5 Mg Tablet 1 Tab PO DAILY Crestor (Rosuvastatin Calcium) 20 Mg Tablet 20 Mg PO HS Isosorbide Mononitrate Er (Isosorbide Mononitrate) 30 Mg Tab.er.24h 1 Tab PO DAILY Gabapentin 600 Mg Tablet 300 Mg PO HS Gabapentin 600 Mg Tablet 100 Mg PO NOON Gabapentin 600 Mg Tablet 200 Mg PO DAILYWBKFT Nitrofurantoin (Nitrofurantoin Macrocrystal) 100 Mg Capsule 1 Cap PO BID Metoprolol Tartrate 25 Mg Tablet 1 Tab PO BID Brilinta (Ticagrelor) 90 Mg Tablet 90 Mg PO BID Bumetanide 2 Mg Tablet 1 Tab PO DAILY NITROGLYCERIN SubLingual (Nitroglycerin) 0.4 Mg Tab.subl 0.4 Mg SL PRN Q5MIN PRN Cyclobenzaprine Hcl 10 Mg Tablet 1 Tab PO BID Advair 250-50 Diskus (Fluticasone/Salmeterol) 1 Each Disk.w.dev 1 Puff IH BID Vitals/I & O Vital Sign - Last 24 Hours 04/27/18 04/27/18 04/27/18 04/27/18 15:00 19:00 20:00 22:36 Temp 98.5 97.6 98.5 97.6 Pulse 95 85 Resp 20 16 16 B/P (MAP) 180/74 (109) 107/58 (74) Pulse Ox 100 98 98 O2 Delivery Nasal Cannula Nasal Cannula Nasal Cannula Nasal Cannula O2 Flow Rate 2.0 2.0 2.0 2.0 04/27/18 04/27/18 04/27/18 04/27/18 23:00 23:16 23:30 23:40 Temp 98.0 98.0 Pulse 84 85 65 Resp 16 18 B/P (MAP) 169/104 (125) 169/104 92/47 (62) Pulse Ox 98 98 O2 Delivery Nasal Cannula Nasal Cannula O2 Flow Rate 2.0 2.0 04/28/18 04/28/18 04/28/18 04/28/18 03:00 07:00 08:00 11:00 Temp 97.6 98.6 98.4 97.6 98.6 98.4 Pulse 71 88 88 Resp 16 16 16 B/P (MAP) 137/65 (89) 128/51 (76) 124/58 (80) Pulse Ox 97 95 98 O2 Delivery Nasal Cannula Room Air Nasal Cannula Room Air O2 Flow Rate 2.0 2.0 Intake and Output 04/27/18 04/27/18 04/28/18 15:01 23:01 07:01 Intake Total 1000 ml 60 ml Output Total 800 ml 400 ml Balance 200 ml -340 ml Nutrition Consultation Dietary Evaluation: Recommendations by RD: Protein supplementation, PPN/TPN Comments: REC PPN for short-term nutrition needs while pt remains NPO REC Ensure clear and Masood if/when advanced to clear liquids REC Ensure supplements, MVI, and Vit C or Masood when on full liquids Goal diet cardiac/ADA, high protein Expected Outcomes/Goals: Diet advancement Interpretation of weight loss: >7.5% in 3 months Malnutrition Findings: Food and Nutrition Intake (Mod: <75% est energy req 7days Weight Status: Appropriate CARLOS ALBERTO THOMASON MD Apr 28, 2018 13:14
--- NOTE | 2018-04-28 13:47 | PDOC ---
PROGRESS NOTES Chief Complaint Chief Complaint acute renal failure, vasomotor nephropathy likely, hypovolemic hyponatremia acute pancreatitis, w./ u SIRS, w/ acute pain, pancreas dysfunction Dm2, poor control, check A1c, add SSI, some hyperosmolar non-ketosis would also explain lytes nausea and vomiting and abd pain CAD, hx CHF, is s/p cardiac cath x2 this month, was not stented at [facility], then one was placed at [facility]. falls, chest contusion, weakness and debility, History of Present Illness History of Present Illness Admitted for ALLY, hyponatremia, pancreatitis. MRCP - Biliary tree is normal caliber. No choledocholithiasis. Concern for malignancy from history, but imaging is not consistent with this No overnight events, tolerating ice chips well. Still with abdominal pain in bilateral upper quadrants. MRCP reviewed normal. Labs improving. K is low today Plan: Cont current plan Replace potassium Vitals Vitals Vital Signs Date Time Temp Pulse Resp B/P (MAP) Pulse Ox O2 Delivery O2 Flow Rate FiO2 04/28/18 11:00 98.4 88 16 124/58 (80) 98 Room Air 98.4 04/28/18 08:00 2.0 Physical Exam General: No acute distress Heart: Regular rate Abdomen: Normal bowel sounds Extremities: No clubbing, No cyanosis Skin: No breakdown Labs LABS Laboratory Tests Test 04/27/18 17:33 04/27/18 20:50 04/28/18 04:30 04/28/18 07:34 Glucose (Fingerstick) 262 mg/dL (70-99) 157 mg/dL (70-99) 182 mg/dL (70-99) White Blood Count 13.0 x10^3/uL (4.0-11.0) Red Blood Count 4.04 x10^6/uL (3.50-5.40) Hemoglobin 10.9 g/dL (12.0-15.5) Hematocrit 35.1 % (36.0-47.0) Mean Corpuscular Volume 87 fL (79-100) Mean Corpuscular Hemoglobin 27 pg (25-35) Mean Corpuscular Hemoglobin Concent 31 g/dL (31-37) Red Cell Distribution Width 18.1 % (11.5-14.5) Platelet Count 292 x10^3/uL (140-400) Sodium Level 134 mmol/L (136-145) Potassium Level 3.4 mmol/L (3.5-5.1) Chloride Level 98 mmol/L (98-107) Carbon Dioxide Level 24 mmol/L (21-32) Anion Gap 12 (6-14) Blood Urea Nitrogen 34 mg/dL (7-20) Creatinine 1.5 mg/dL (0.6-1.0) Estimated GFR (Cockcroft-Gault) 33.8 Glucose Level 183 mg/dL (70-99) Calcium Level 9.5 mg/dL (8.5-10.1) Magnesium Level 2.5 mg/dL (1.8-2.4) Lipase 512 U/L (73-393) Test 04/28/18 11:08 Glucose (Fingerstick) 212 mg/dL (70-99) Assessment and Plan Assessmemt and Plan Problems Medical Problems: (1) Acute pancreatitis Status: Acute (2) Chest pain Status: Acute Comment Review of Relevant I have reviewed the following items hugh (where applicable) has been applied. Labs Laboratory Tests Test 04/26/18 18:15 04/27/18 01:30 04/27/18 05:00 04/27/18 07:30 White Blood Count 14.8 x10^3/uL (4.0-11.0) Red Blood Count 4.07 x10^6/uL (3.50-5.40) Hemoglobin 11.1 g/dL (12.0-15.5) Hematocrit 34.4 % (36.0-47.0) Mean Corpuscular Volume 84 fL (79-100) Mean Corpuscular Hemoglobin 27 pg (25-35) Mean Corpuscular Hemoglobin Concent 32 g/dL (31-37) Red Cell Distribution Width 16.8 % (11.5-14.5) Platelet Count 413 x10^3/uL (140-400) Neutrophils (%) (Auto) 78 % (31-73) Lymphocytes (%) (Auto) 11 % (24-48) Monocytes (%) (Auto) 9 % (0-9) Eosinophils (%) (Auto) 1 % (0-3) Basophils (%) (Auto) 1 % (0-3) Neutrophils # (Auto) 11.5 x10^3uL (1.8-7.7) Lymphocytes # (Auto) 1.7 x10^3/uL (1.0-4.8) Monocytes # (Auto) 1.3 x10^3/uL (0.0-1.1) Eosinophils # (Auto) 0.2 x10^3/uL (0.0-0.7) Basophils # (Auto) 0.1 x10^3/uL (0.0-0.2) Prothrombin Time 13.4 SEC (11.7-14.0) Prothromb Time International Ratio 1.1 (0.8-1.1) Activated Partial Thromboplast Time 29 SEC (24-38) D-Dimer (Carissa) 2.65 ug/mlFEU (0.00-0.50) Sodium Level 127 mmol/L (136-145) Potassium Level 3.5 mmol/L (3.5-5.1) Chloride Level 88 mmol/L (98-107) Carbon Dioxide Level 26 mmol/L (21-32) Anion Gap 13 (6-14) Blood Urea Nitrogen 49 mg/dL (7-20) Creatinine 2.3 mg/dL (0.6-1.0) Estimated GFR (Cockcroft-Gault) 20.6 BUN/Creatinine Ratio 21 (6-20) Glucose Level 333 mg/dL (70-99) Calcium Level 10.4 mg/dL (8.5-10.1) Magnesium Level 2.4 mg/dL (1.8-2.4) Total Bilirubin 0.6 mg/dL (0.2-1.0) Aspartate Amino Transf (AST/SGOT) 41 U/L (15-37) Alanine Aminotransferase (ALT/SGPT) 25 U/L (14-59) Alkaline Phosphatase 141 U/L (46-116) Troponin I Quantitative 0.029 ng/mL (0.000-0.055) RV-Wmq-S-Type Natriuretic Peptide 1905 pg/mL (0-449) Total Protein 8.9 g/dL (6.4-8.2) Albumin 3.4 g/dL (3.4-5.0) Albumin/Globulin Ratio 0.6 (1.0-1.7) Lipase 2831 U/L (73-393) Urine Collection Type Unknown Urine Color Yellow Urine Clarity Clear Urine pH 6.0 Urine Specific Wheeler 1.020 Urine Protein 100 mg/dL (NEG-TRACE) Urine Glucose (UA) >=1000 mg/dL (NEG) Urine Ketones (Stick) Negative mg/dL (NEG) Urine Blood Negative (NEG) Urine Nitrite Negative (NEG) Urine Bilirubin Negative (NEG) Urine Urobilinogen Dipstick 1.0 mg/dL (0.2 mg/dL) Urine Leukocyte Esterase Negative (NEG) Urine RBC Occ /HPF (0-2) Urine WBC 5-10 /HPF (0-4) Urine Squamous Epithelial Cells Many /LPF Urine Amorphous Sediment Present /HPF Urine Bacteria 0 /HPF (0-FEW) Urine Hyaline Casts Occasional /HPF Urine Granular Casts Few /HPF Urine Mucus Mod /LPF Urine Opiates Screen Neg (NEG) Urine Methadone Screen Neg (NEG) Urine Barbiturates Neg (NEG) Urine Phencyclidine Screen Neg (NEG) Urine Amphetamine/Methamphetamine Neg (NEG) Urine Benzodiazepines Screen Neg (NEG) Urine Cocaine Screen Neg (NEG) Urine Cannabinoids Screen Neg (NEG) Urine Ethyl Alcohol Neg (NEG) Heparin Anti-Xa Act, Unfractionated 0.23 IU/mL (0.30-0.70) Glucose (Fingerstick) 289 mg/dL (70-99) Test 04/27/18 09:25 04/27/18 12:07 04/27/18 17:33 04/27/18 20:50 White Blood Count 17.6 x10^3/uL (4.0-11.0) Red Blood Count 3.94 x10^6/uL (3.50-5.40) Hemoglobin 11.0 g/dL (12.0-15.5) Hematocrit 33.6 % (36.0-47.0) Mean Corpuscular Volume 85 fL (79-100) Mean Corpuscular Hemoglobin 28 pg (25-35) Mean Corpuscular Hemoglobin Concent 33 g/dL (31-37) Red Cell Distribution Width 17.0 % (11.5-14.5) Platelet Count 350 x10^3/uL (140-400) Neutrophils (%) (Auto) 85 % (31-73) Lymphocytes (%) (Auto) 7 % (24-48) Monocytes (%) (Auto) 7 % (0-9) Eosinophils (%) (Auto) 1 % (0-3) Basophils (%) (Auto) 0 % (0-3) Neutrophils # (Auto) 15.0 x10^3uL (1.8-7.7) Lymphocytes # (Auto) 1.1 x10^3/uL (1.0-4.8) Monocytes # (Auto) 1.3 x10^3/uL (0.0-1.1) Eosinophils # (Auto) 0.2 x10^3/uL (0.0-0.7) Basophils # (Auto) 0.0 x10^3/uL (0.0-0.2) Segmented Neutrophils % 88 % (35-66) Lymphocytes % 5 % (24-48) Monocytes % 4 % (0-10) Eosinophils % 3 % (0-5) Toxic Vacuolation Slight Platelet Estimate Adequate (ADEQUATE) Sodium Level 131 mmol/L (136-145) Potassium Level 3.7 mmol/L (3.5-5.1) Chloride Level 95 mmol/L (98-107) Carbon Dioxide Level 24 mmol/L (21-32) Anion Gap 12 (6-14) Blood Urea Nitrogen 41 mg/dL (7-20) Creatinine 1.8 mg/dL (0.6-1.0) Estimated GFR (Cockcroft-Gault) 27.4 BUN/Creatinine Ratio 23 (6-20) Glucose Level 335 mg/dL (70-99) Hemoglobin A1c 8.9 % (4.8-5.6) Calcium Level 10.1 mg/dL (8.5-10.1) Phosphorus Level 3.7 mg/dL (2.6-4.7) Total Bilirubin 0.6 mg/dL (0.2-1.0) Aspartate Amino Transf (AST/SGOT) 32 U/L (15-37) Alanine Aminotransferase (ALT/SGPT) 22 U/L (14-59) Alkaline Phosphatase 135 U/L (46-116) Creatine Kinase 82 U/L (26-192) Troponin I Quantitative 0.078 ng/mL (0.000-0.055) Total Protein 8.3 g/dL (6.4-8.2) Albumin 3.1 g/dL (3.4-5.0) Albumin/Globulin Ratio 0.6 (1.0-1.7) Triglycerides Level 121 mg/dL (0-150) Cholesterol Level 116 mg/dL (0-200) LDL Cholesterol, Calculated 52 mg/dL (0-100) VLDL Cholesterol, Calculated 24 mg/dL (0-40) Non-HDL Cholesterol Calculated 76 mg/dL (0-129) HDL Cholesterol 40 mg/dL (40-60) Cholesterol/HDL Ratio 2.9 Lipase 1082 U/L (73-393) Glucose (Fingerstick) 312 mg/dL (70-99) 262 mg/dL (70-99) 157 mg/dL (70-99) Test 04/28/18 04:30 04/28/18 07:34 04/28/18 11:08 White Blood Count 13.0 x10^3/uL (4.0-11.0) Red Blood Count 4.04 x10^6/uL (3.50-5.40) Hemoglobin 10.9 g/dL (12.0-15.5) Hematocrit 35.1 % (36.0-47.0) Mean Corpuscular Volume 87 fL (79-100) Mean Corpuscular Hemoglobin 27 pg (25-35) Mean Corpuscular Hemoglobin Concent 31 g/dL (31-37) Red Cell Distribution Width 18.1 % (11.5-14.5) Platelet Count 292 x10^3/uL (140-400) Sodium Level 134 mmol/L (136-145) Potassium Level 3.4 mmol/L (3.5-5.1) Chloride Level 98 mmol/L (98-107) Carbon Dioxide Level 24 mmol/L (21-32) Anion Gap 12 (6-14) Blood Urea Nitrogen 34 mg/dL (7-20) Creatinine 1.5 mg/dL (0.6-1.0) Estimated GFR (Cockcroft-Gault) 33.8 Glucose Level 183 mg/dL (70-99) Calcium Level 9.5 mg/dL (8.5-10.1) Magnesium Level 2.5 mg/dL (1.8-2.4) Lipase 512 U/L (73-393) Glucose (Fingerstick) 182 mg/dL (70-99) 212 mg/dL (70-99) Laboratory Tests Test 04/27/18 17:33 04/27/18 20:50 04/28/18 04:30 04/28/18 07:34 Glucose (Fingerstick) 262 mg/dL (70-99) 157 mg/dL (70-99) 182 mg/dL (70-99) White Blood Count 13.0 x10^3/uL (4.0-11.0) Red Blood Count 4.04 x10^6/uL (3.50-5.40) Hemoglobin 10.9 g/dL (12.0-15.5) Hematocrit 35.1 % (36.0-47.0) Mean Corpuscular Volume 87 fL (79-100) Mean Corpuscular Hemoglobin 27 pg (25-35) Mean Corpuscular Hemoglobin Concent 31 g/dL (31-37) Red Cell Distribution Width 18.1 % (11.5-14.5) Platelet Count 292 x10^3/uL (140-400) Sodium Level 134 mmol/L (136-145) Potassium Level 3.4 mmol/L (3.5-5.1) Chloride Level 98 mmol/L (98-107) Carbon Dioxide Level 24 mmol/L (21-32) Anion Gap 12 (6-14) Blood Urea Nitrogen 34 mg/dL (7-20) Creatinine 1.5 mg/dL (0.6-1.0) Estimated GFR (Cockcroft-Gault) 33.8 Glucose Level 183 mg/dL (70-99) Calcium Level 9.5 mg/dL (8.5-10.1) Magnesium Level 2.5 mg/dL (1.8-2.4) Lipase 512 U/L (73-393) Test 04/28/18 11:08 Glucose (Fingerstick) 212 mg/dL (70-99) Medications Current Medications Sodium Chloride 1,000 ml @ 100 mls/hr Q10H IV Last administered on 04/26/18at 18:59; Start 04/26/18 at 18:13; Stop 04/27/18 at 04:12; Status DC Enoxaparin Sodium (Lovenox 60mg Syringe) 60 mg 1X ONCE SQ ; Start 04/26/18 at 19:45; Stop 04/26/18 at 19:46; Status Cancel Heparin Sodium/ Dextrose 500 ml @ 0 mls/hr CONT PRN IV SEE I/O RECORD; Start at 20:00; Stop 04/26/18 at 20:01; Status DC Ondansetron HCl (Zofran) 4 mg PRN Q8HRS PRN IV NAUSEA/VOMITING; Start 04/26/18 at 20:00; Stop 04/27/18 at 19:59; Status DC Fentanyl Citrate (Fentanyl 2ml Vial) 50 mcg PRN Q1HR PRN IV PAIN Last administered on 04/27/18at 13:00; Start 04/26/18 at 20:00; Stop 04/27/18 at 19:59 ; Status DC Heparin Sodium/ Dextrose 500 ml @ 0 mls/hr CONT PRN IV SEE I/O RECORD Last administered on 04/26/18at 22:59; Start 04/26/18 at 20:00; Stop 04/27/18 at 13:58 ; Status DC Heparin Sodium (Porcine) (Heparin Sodium) 1,800 unit PRN Q6HRS PRN IV FOR UFH LEVEL LESS THAN 0.2 Last administered on 04/26/18at 22:52; Start 04/26/18 at 20: 00; Stop 04/27/18 at 13:59; Status DC Heparin Sodium (Porcine) (Heparin Sodium) 900 unit PRN Q6HRS PRN IV FOR UFH LEVEL 0.2 - 0.29 Last administered on 04/27/18 08:16; Start 04/26/18 at 20:00; Stop 04/27/18 at 13:59; Status DC Insulin Human Lispro (HumaLOG) 0-9 UNITS TIDWMEALS SQ Last administered on 04/27 17:46; Start 04/27/18 at 08:00 Dextrose (Dextrose 50%-Water Syringe) 12.5 gm PRN Q15MIN PRN IV SEE COMMENTS; Start 04/26/18 at 20:30 Labetalol HCl (Normodyne Iv Push) 20 mg PRN Q2HR PRN IVP HYPERTENSION, SEE COMMENTS Last administered on 04/27/18at 23:16; Start 04/26/18 at 20:45 Saliva Substitute (Biotene Moisturizing Mouth) 2 spray PRN Q15MIN PRN PO DRY MOUTH; Start 04/26/18 at 20:45 Lidocaine (Lidoderm) 1 patch DAILY TD Last administered on 04/27/18at 08:14; Start 04/27/18 at 09:00 Miscellaneous (Lidoderm Patch Removal) 1 ea QHS MC Last administered on 1/25/ 19at 20:56; Start 04/26/18 at 21:00 Pharmacy Consult (C.diff Med Screen By Rx) 1 each 1X ONCE MC ; Start 04/27/18 at 09:00; Stop 04/27/18 at 09:01; Status Cancel Info (Anti-Coagulation Monitoring By Pharmacy) 1 each PRN DAILY PRN MC SEE COMMENTS; Start 04/27/18 at 08:15; Stop 04/27/18 at 13:59; Status DC Aspirin (Ecotrin) 81 mg DAILYWBKFT PO Last administered on 04/27/18at 11:15; Start 04/27/18 at 10:00 Ticagrelor (Brilinta) 90 mg BID PO Last administered on 04/27/18at 20:48; Start 04/27/18 at 10:00 Insulin Glargine (Lantus) 14 units DAILY10 SQ Last administered on 04/27/18at 11 :12; Start 04/27/18 at 11:00 Pantoprazole Sodium (Protonix) 40 mg DAILYAC PO Last administered on 04/27/18at 11:16; Start 04/27/18 at 11:00 Lactobacillus Rhamnosus (Culturelle) 1 cap BID PO Last administered on at 20:48; Start 04/27/18 at 21:00 Sodium Chloride 1,000 ml @ 100 mls/hr Q10H IV Last administered on 04/28/18at 04:11; Start 04/27/18 at 11:30 Oxycodone/ Acetaminophen (Percocet 7.5/ 325) 1 tab PRN Q4HRS PRN PO PAIN Last administered on 04/27/18at 22:36; Start 04/27/18 at 16:00 Active Scripts Active Reported Santyl Ointment (Collagenase) 30 Gm Oint...g. 1 Rose TP DAILY DIRECTED BY PHYSICIAN Tramadol Hcl 50 Mg Tablet 50 Mg PO Q6HRS PRN Lisinopril 2.5 Mg Tablet 1 Tab PO DAILY Crestor (Rosuvastatin Calcium) 20 Mg Tablet 20 Mg PO HS Isosorbide Mononitrate Er (Isosorbide Mononitrate) 30 Mg Tab.er.24h 1 Tab PO DAILY Gabapentin 600 Mg Tablet 300 Mg PO HS Gabapentin 600 Mg Tablet 100 Mg PO NOON Gabapentin 600 Mg Tablet 200 Mg PO DAILYWBKFT Nitrofurantoin (Nitrofurantoin Macrocrystal) 100 Mg Capsule 1 Cap PO BID Metoprolol Tartrate 25 Mg Tablet 1 Tab PO BID Brilinta (Ticagrelor) 90 Mg Tablet 90 Mg PO BID Bumetanide 2 Mg Tablet 1 Tab PO DAILY NITROGLYCERIN SubLingual (Nitroglycerin) 0.4 Mg Tab.subl 0.4 Mg SL PRN Q5MIN PRN Cyclobenzaprine Hcl 10 Mg Tablet 1 Tab PO BID Advair 250-50 Diskus (Fluticasone/Salmeterol) 1 Each Disk.w.dev 1 Puff IH BID Vitals/I & O Vital Sign - Last 24 Hours 04/27/18 04/27/18 04/27/18 04/27/18 15:00 19:00 20:00 22:36 Temp 98.5 97.6 98.5 97.6 Pulse 95 85 Resp 20 16 16 B/P (MAP) 180/74 (109) 107/58 (74) Pulse Ox 100 98 98 O2 Delivery Nasal Cannula Nasal Cannula Nasal Cannula Nasal Cannula O2 Flow Rate 2.0 2.0 2.0 2.0 04/27/18 04/27/18 04/27/18 04/27/18 23:00 23:16 23:30 23:40 Temp 98.0 98.0 Pulse 84 85 65 Resp 16 18 B/P (MAP) 169/104 (125) 169/104 92/47 (62) Pulse Ox 98 98 O2 Delivery Nasal Cannula Nasal Cannula O2 Flow Rate 2.0 2.0 04/28/18 04/28/18 04/28/18 04/28/18 03:00 07:00 08:00 11:00 Temp 97.6 98.6 98.4 97.6 98.6 98.4 Pulse 71 88 88 Resp 16 16 16 B/P (MAP) 137/65 (89) 128/51 (76) 124/58 (80) Pulse Ox 97 95 98 O2 Delivery Nasal Cannula Room Air Nasal Cannula Room Air O2 Flow Rate 2.0 2.0 Intake and Output 04/27/18 04/27/18 04/28/18 15:01 23:01 07:01 Intake Total 1000 ml 60 ml Output Total 800 ml 400 ml Balance 200 ml -340 ml Nutrition Consultation Dietary Evaluation: Recommendations by RD: Protein supplementation, PPN/TPN Comments: REC PPN for short-term nutrition needs while pt remains NPO REC Ensure clear and Masood if/when advanced to clear liquids REC Ensure supplements, MVI, and Vit C or Masood when on full liquids Goal diet cardiac/ADA, high protein Expected Outcomes/Goals: Diet advancement Interpretation of weight loss: >7.5% in 3 months Malnutrition Findings: Food and Nutrition Intake (Mod: <75% est energy req 7days Weight Status: Appropriate JENNIFER GALO MD Apr 28, 2018 13:47
--- NOTE | 2018-04-28 13:49 | NUR ---
Handed off patient to JUAN Cordero due to patient being rude & refusing care/medications from this bond underwriter. Patient flipped this bond underwriter off & stated that she was not here to talk to this bond underwriter & that this bond underwriter was not here to talk to her. She also stated that she could take care of herself. This bond underwriter believes that patient thinks she is someone else or that she could be confused.
[2018-04-28] MEDS ORDERED: POTASSIUM CHLORIDE 10MEQ 100 ML IV SCH (14:00)
--- NOTE | 2018-04-28 14:41 | PDOC ---
Renal-Progress Notes Subjective Notes Notes NO NEW COMPLAINTS History of Present Illness Hx of present illness BETTER Vitals Vitals Vital Signs Date Time Temp Pulse Resp B/P (MAP) Pulse Ox O2 Delivery O2 Flow Rate FiO2 04/28/18 11:00 98.4 88 16 124/58 (80) 98 Room Air 98.4 04/28/18 08:00 2.0 Weight Weight [ ] I.O. Intake and Output Intake and Output 04/28/18 07:01 Intake Total 1060 ml Output Total 1200 ml Balance -140 ml Intake Oral 60 ml IV Total 1000 ml Output Urine Total 1200 ml Labs Labs Laboratory Tests Test 04/27/18 17:33 04/27/18 20:50 04/28/18 04:30 04/28/18 07:34 Glucose (Fingerstick) 262 mg/dL (70-99) 157 mg/dL (70-99) 182 mg/dL (70-99) White Blood Count 13.0 x10^3/uL (4.0-11.0) Red Blood Count 4.04 x10^6/uL (3.50-5.40) Hemoglobin 10.9 g/dL (12.0-15.5) Hematocrit 35.1 % (36.0-47.0) Mean Corpuscular Volume 87 fL (79-100) Mean Corpuscular Hemoglobin 27 pg (25-35) Mean Corpuscular Hemoglobin Concent 31 g/dL (31-37) Red Cell Distribution Width 18.1 % (11.5-14.5) Platelet Count 292 x10^3/uL (140-400) Sodium Level 134 mmol/L (136-145) Potassium Level 3.4 mmol/L (3.5-5.1) Chloride Level 98 mmol/L (98-107) Carbon Dioxide Level 24 mmol/L (21-32) Anion Gap 12 (6-14) Blood Urea Nitrogen 34 mg/dL (7-20) Creatinine 1.5 mg/dL (0.6-1.0) Estimated GFR (Cockcroft-Gault) 33.8 Glucose Level 183 mg/dL (70-99) Calcium Level 9.5 mg/dL (8.5-10.1) Magnesium Level 2.5 mg/dL (1.8-2.4) Lipase 512 U/L (73-393) Test 04/28/18 11:08 Glucose (Fingerstick) 212 mg/dL (70-99) Review of Systems Constitutional: yes: weakness, alert, oriented Ears/Nose/Throat: Yes: no symptom reported Eyes: Yes: no symptom reported Pulmonary: Yes no symptom reported Cardiovascular: Yes no symptom reported Gastrointestional: Yes: nausea, epigastric pain Genitourinary: Yes: no symptom reported Musculoskeletal: Yes: no symptom reported Skin: Yes no symptom reported Psychiatric/Neurological: Yes: no symptom reported Endocrine: Yes: no symptom reported Physical Exam General Appearance: no apparent distress Skin: warm Respiratory: bilateral CTA Heart: S1S2 Abdomen: soft, bowel sounds present Genitourinary: bladder flat Extremities: pulses present Neurology: alert Musculoskeletal: Osteoarthritis, Other (osteomyelitis, right big toe surgical injury) Assessment Assessment IMP ALLY-BETTER WITH CR OF 1.6 DEHYDRATION MILD HYPOKALEMIA PANCREATITIS PLAN K REPLACED CONT IVF'S AMANDA WASSERMAN MD Apr 28, 2018 14:41
--- NOTE | 2018-04-28 14:53 | PDOC ---
GI PROGRESS NOTES Date Date/Time DATE: 04/28/18 TIME: 14:49 Subjective Subjective chest sore from fall- mild upper abd discomfort as well and poor appetite over past few weeks Objective Vitals Vital Signs Date Time Temp Pulse Resp B/P (MAP) Pulse Ox O2 Delivery O2 Flow Rate FiO2 04/28/18 11:00 98.4 88 16 124/58 (80) 98 Room Air 98.4 04/28/18 08:00 Nasal Cannula 2.0 04/28/18 07:00 98.6 88 16 128/51 (76) 95 Room Air 98.6 04/28/18 03:00 97.6 71 16 137/65 (89) 97 Nasal Cannula 2.0 97.6 04/27/18 23:40 18 98 Nasal Cannula 2.0 04/27/18 23:30 65 92/47 (62) 04/27/18 23:16 85 169/104 04/27/18 23:00 98.0 84 16 169/104 (125) 98 Nasal Cannula 2.0 98.0 04/27/18 22:36 16 98 Nasal Cannula 2.0 04/27/18 20:00 Nasal Cannula 2.0 04/27/18 19:00 97.6 85 16 107/58 (74) 98 Nasal Cannula 2.0 97.6 04/27/18 15:00 98.5 95 20 180/74 (109) 100 Nasal Cannula 2.0 98.5 Labs Labs Laboratory Tests Test 04/27/18 17:33 04/27/18 20:50 04/28/18 04:30 04/28/18 07:34 Glucose (Fingerstick) 262 mg/dL (70-99) 157 mg/dL (70-99) 182 mg/dL (70-99) White Blood Count 13.0 x10^3/uL (4.0-11.0) Red Blood Count 4.04 x10^6/uL (3.50-5.40) Hemoglobin 10.9 g/dL (12.0-15.5) Hematocrit 35.1 % (36.0-47.0) Mean Corpuscular Volume 87 fL (79-100) Mean Corpuscular Hemoglobin 27 pg (25-35) Mean Corpuscular Hemoglobin Concent 31 g/dL (31-37) Red Cell Distribution Width 18.1 % (11.5-14.5) Platelet Count 292 x10^3/uL (140-400) Sodium Level 134 mmol/L (136-145) Potassium Level 3.4 mmol/L (3.5-5.1) Chloride Level 98 mmol/L (98-107) Carbon Dioxide Level 24 mmol/L (21-32) Anion Gap 12 (6-14) Blood Urea Nitrogen 34 mg/dL (7-20) Creatinine 1.5 mg/dL (0.6-1.0) Estimated GFR (Cockcroft-Gault) 33.8 Glucose Level 183 mg/dL (70-99) Calcium Level 9.5 mg/dL (8.5-10.1) Magnesium Level 2.5 mg/dL (1.8-2.4) Lipase 512 U/L (73-393) Test 04/28/18 11:08 Glucose (Fingerstick) 212 mg/dL (70-99) Physical Exam Physical Exam chest- clear but chest wall tender abd -soft only mildly tender in mid abd no point tenderness or rebound Assessment Assessment Elevated lipase- cause is UNCLEAR- improving and clinically improving as well - only mild upper abd discomfort- imaging does NOT show pancreatitis but did show diffuse atherosclerosis still sore in chest wall from fall Plan Plan trial of full liquids as tolerated GEORGE MARQUEZ MD Apr 28, 2018 14:53
[2018-04-28] MEDS: PANTOPRAZOLE 40 MG TABLET.DR. PO SCH (14:56)
[2018-04-28] MEDS: LACTOBACILLUS RHAMNOSUS GG 1 CAPSULE. PO SCH ×2 (14:56→20:34)
[2018-04-28] MEDS: TICAGRELOR 90 MG TABLET. PO SCH ×2 (14:56→20:34)
[2018-04-28] MEDS: ASPIRIN ENTERIC COATED 81 MG TABLET.DR. PO SCH (14:56)
[2018-04-28] MEDS: LIDOCAINE (700MG/PATCH) PATCH. TD SCH (14:56)
[2018-04-28 15:00] VITALS: BP 149/85
[2018-04-28] MEDS: INSULIN GLARGINE 300 UNITS/3 ML INSULN.PEN. SQ SCH (15:06)
[2018-04-28] MEDS ORDERED: POTASSIUM CHLORIDE 20 MEQ TABLET.ER. PO ONE (16:00)
[2018-04-28 19:10] VITALS: BP 108/49
[2018-04-28] MEDS: oxyCODONE/APAP 7.5/325 1 TAB TABLET PO PRN (19:19)
[2018-04-28] MEDS: PATCH REMOVAL. MC SCH (20:34)
[2018-04-28 23:20] VITALS: BP 101/52
[2018-04-29] VITALS (7 sets, daily range): BP systolic 127–194; BP diastolic 42–86
[2018-04-29] MEDS: IV NORMAL SALINE 1000ML BAG 1,000 ML IV SCH ×3 (03:30→23:58)
[2018-04-29 06:17] LABS: CALCIUM 9.1 mg/dL (8.5-10.1); CREATININE 1.1 mg/dL (0.6-1.0); GFR 48.3; MAGNESIUM 2.2 mg/dL (1.8-2.4); POTASSIUM 3.2 mmol/L (3.5-5.1)
[2018-04-29] MEDS: INSULIN LISPRO 300 UNITS/3 ML INSULN.PEN. SQ SCH ×3 (08:00→17:55)
[2018-04-29] MEDS: ASPIRIN ENTERIC COATED 81 MG TABLET.DR. PO SCH (08:43)
[2018-04-29] MEDS: oxyCODONE/APAP 7.5/325 1 TAB TABLET PO PRN (08:43)
[2018-04-29] MEDS: LIDOCAINE (700MG/PATCH) PATCH. TD SCH (08:43)
[2018-04-29] MEDS: TICAGRELOR 90 MG TABLET. PO SCH ×2 (08:43→20:36)
[2018-04-29] MEDS: PANTOPRAZOLE 40 MG TABLET.DR. PO SCH (08:43)
[2018-04-29] MEDS: LACTOBACILLUS RHAMNOSUS GG 1 CAPSULE. PO SCH ×2 (08:44→20:36)
[2018-04-29] MEDS: INSULIN GLARGINE 300 UNITS/3 ML INSULN.PEN. SQ SCH (08:53)
--- NOTE | 2018-04-29 11:17 | PDOC ---
Renal-Progress Notes Subjective Notes Notes NONE History of Present Illness Hx of present illness STABLE Vitals Vitals Vital Signs Date Time Temp Pulse Resp B/P (MAP) Pulse Ox O2 Delivery O2 Flow Rate FiO2 04/29/18 08:43 12 98 Room Air 2.0 04/29/18 08:15 98.1 84 127/86 (100) 98.1 Weight Weight [ ] I.O. Intake and Output Intake and Output 04/29/18 07:01 Intake Total 2350 ml Output Total 1800 ml Balance 550 ml Intake Oral 900 ml IV Total 1200 ml Blood Product IV Normal Saline Flush 250 ml Output Urine Total 1800 ml Labs Labs Laboratory Tests Test 04/28/18 16:57 04/28/18 20:48 04/29/18 05:05 04/29/18 08:06 Glucose (Fingerstick) 310 mg/dL (70-99) 105 mg/dL (70-99) 145 mg/dL (70-99) Sodium Level 136 mmol/L (136-145) Potassium Level 3.2 mmol/L (3.5-5.1) Chloride Level 103 mmol/L (98-107) Carbon Dioxide Level 21 mmol/L (21-32) Anion Gap 12 (6-14) Blood Urea Nitrogen 19 mg/dL (7-20) Creatinine 1.1 mg/dL (0.6-1.0) Estimated GFR (Cockcroft-Gault) 48.3 Glucose Level 126 mg/dL (70-99) Calcium Level 9.1 mg/dL (8.5-10.1) Magnesium Level 2.2 mg/dL (1.8-2.4) Micro Micro Microbiology 04/27/18 Urine Culture - Final, Complete 04/27/18 Urine Culture Result 1 (HUNG) - Final, Complete Review of Systems Constitutional: yes: weakness, alert, oriented Ears/Nose/Throat: Yes: no symptom reported Eyes: Yes: no symptom reported Pulmonary: Yes no symptom reported Cardiovascular: Yes no symptom reported Gastrointestional: Yes: nausea, epigastric pain Genitourinary: Yes: no symptom reported Musculoskeletal: Yes: no symptom reported Skin: Yes no symptom reported Psychiatric/Neurological: Yes: no symptom reported Endocrine: Yes: no symptom reported Physical Exam General Appearance: no apparent distress Skin: warm Respiratory: bilateral CTA Heart: S1S2 Abdomen: soft, bowel sounds present Genitourinary: bladder flat Extremities: pulses present Neurology: alert Musculoskeletal: Osteoarthritis, Other (osteomyelitis, right big toe surgical injury) Assessment Assessment IMP ALLY-RESOLVED DEHYDRATION MILD HYPOKALEMIA PANCREATITIS PLAN K REPLACED WILL SIGN OFF AMANDA WASSERMAN MD Apr 29, 2018 11:17
--- NOTE | 2018-04-29 11:34 | PDOC ---
GI PROGRESS NOTES Date Date/Time DATE: 04/29/18 TIME: 11:30 Subjective Subjective epigastric pain - improved- chest still sore MRCP negative and lipase coming down Objective Vitals Vital Signs Date Time Temp Pulse Resp B/P (MAP) Pulse Ox O2 Delivery O2 Flow Rate FiO2 04/29/18 08:43 12 98 Room Air 2.0 04/29/18 08:15 98.1 84 12 127/86 (100) 98 Room Air 98.1 04/29/18 08:00 Room Air 2.0 04/29/18 07:00 98.0 84 12 127/86 (100) 98 Room Air 2.0 98.0 04/29/18 03:00 98.0 85 21 132/64 (86) 97 Room Air 98.0 04/28/18 23:20 98.1 73 22 101/52 (68) 96 Room Air 98.1 04/28/18 20:33 18 Room Air 04/28/18 19:32 Room Air 04/28/18 19:19 18 Room Air 04/28/18 19:10 98.5 82 21 108/49 (68) 97 Room Air 98.5 04/28/18 15:00 98.3 88 16 149/85 (106) 97 Room Air 98.3 Labs Labs Laboratory Tests Test 04/28/18 16:57 04/28/18 20:48 04/29/18 05:05 04/29/18 08:06 Glucose (Fingerstick) 310 mg/dL (70-99) 105 mg/dL (70-99) 145 mg/dL (70-99) Sodium Level 136 mmol/L (136-145) Potassium Level 3.2 mmol/L (3.5-5.1) Chloride Level 103 mmol/L (98-107) Carbon Dioxide Level 21 mmol/L (21-32) Anion Gap 12 (6-14) Blood Urea Nitrogen 19 mg/dL (7-20) Creatinine 1.1 mg/dL (0.6-1.0) Estimated GFR (Cockcroft-Gault) 48.3 Glucose Level 126 mg/dL (70-99) Calcium Level 9.1 mg/dL (8.5-10.1) Magnesium Level 2.2 mg/dL (1.8-2.4) Physical Exam Physical Exam chest- clear but chest wall tender abd -soft only mildly tender in mid abd no point tenderness or rebound Assessment Assessment Elevated lipase- cause is UNCLEAR- improving and clinically improving as well - only mild upper abd discomfort- imaging does NOT show pancreatitis but did show diffuse atherosclerosis MRCP also negative still sore in chest wall from fall History of chronic heartburn- EGD was discussed and we will plan for tomorrow Plan Plan trial of full liquids as tolerated GEORGE MARQUEZ MD Apr 29, 2018 11:33
[2018-04-29] MEDS ORDERED: POTASSIUM CHLORIDE 20 MEQ TABLET.ER. PO ONE (12:00)
--- NOTE | 2018-04-29 13:28 | PDOC ---
PROGRESS NOTES Chief Complaint Chief Complaint acute renal failure, vasomotor nephropathy likely, hypovolemic hyponatremia acute pancreatitis, w./ u SIRS, w/ acute pain, pancreas dysfunction Dm2, poor control, check A1c, add SSI, some hyperosmolar non-ketosis would also explain lytes nausea and vomiting and abd pain CAD, hx CHF, is s/p cardiac cath x2 this month, was not stented at [facility], then one was placed at [facility]. falls, chest contusion, weakness and debility, History of Present Illness History of Present Illness Admitted for ALLY, hyponatremia, pancreatitis. MRCP - Biliary tree is normal caliber. No choledocholithiasis. GI plans EGD in AM due to pain PT and OT Plan: Cont current plan Replace potassium Vitals Vitals Vital Signs Date Time Temp Pulse Resp B/P (MAP) Pulse Ox O2 Delivery O2 Flow Rate FiO2 04/29/18 11:00 97.9 73 138/65 (89) 98 Room Air 97.9 04/29/18 08:43 12 2.0 Physical Exam General: Alert, Oriented X3, Cooperative, No acute distress Heart: Regular rate Abdomen: Normal bowel sounds Extremities: No clubbing, No cyanosis Skin: No breakdown Labs LABS Laboratory Tests Test 04/28/18 16:57 04/28/18 20:48 04/29/18 05:05 04/29/18 08:06 Glucose (Fingerstick) 310 mg/dL (70-99) 105 mg/dL (70-99) 145 mg/dL (70-99) Sodium Level 136 mmol/L (136-145) Potassium Level 3.2 mmol/L (3.5-5.1) Chloride Level 103 mmol/L (98-107) Carbon Dioxide Level 21 mmol/L (21-32) Anion Gap 12 (6-14) Blood Urea Nitrogen 19 mg/dL (7-20) Creatinine 1.1 mg/dL (0.6-1.0) Estimated GFR (Cockcroft-Gault) 48.3 Glucose Level 126 mg/dL (70-99) Calcium Level 9.1 mg/dL (8.5-10.1) Magnesium Level 2.2 mg/dL (1.8-2.4) Test 04/29/18 12:15 Glucose (Fingerstick) 250 mg/dL (70-99) Review of Systems Review of Systems abd pain, no n.v.d Assessment and Plan Assessmemt and Plan Problems Medical Problems: (1) Acute pancreatitis Status: Acute (2) Chest pain Status: Acute Comment Review of Relevant I have reviewed the following items hugh (where applicable) has been applied. Labs Laboratory Tests Test 04/27/18 17:33 04/27/18 20:50 04/28/18 04:30 04/28/18 07:34 Glucose (Fingerstick) 262 mg/dL (70-99) 157 mg/dL (70-99) 182 mg/dL (70-99) White Blood Count 13.0 x10^3/uL (4.0-11.0) Red Blood Count 4.04 x10^6/uL (3.50-5.40) Hemoglobin 10.9 g/dL (12.0-15.5) Hematocrit 35.1 % (36.0-47.0) Mean Corpuscular Volume 87 fL (79-100) Mean Corpuscular Hemoglobin 27 pg (25-35) Mean Corpuscular Hemoglobin Concent 31 g/dL (31-37) Red Cell Distribution Width 18.1 % (11.5-14.5) Platelet Count 292 x10^3/uL (140-400) Sodium Level 134 mmol/L (136-145) Potassium Level 3.4 mmol/L (3.5-5.1) Chloride Level 98 mmol/L (98-107) Carbon Dioxide Level 24 mmol/L (21-32) Anion Gap 12 (6-14) Blood Urea Nitrogen 34 mg/dL (7-20) Creatinine 1.5 mg/dL (0.6-1.0) Estimated GFR (Cockcroft-Gault) 33.8 Glucose Level 183 mg/dL (70-99) Calcium Level 9.5 mg/dL (8.5-10.1) Magnesium Level 2.5 mg/dL (1.8-2.4) Lipase 512 U/L (73-393) Test 04/28/18 11:08 04/28/18 16:57 04/28/18 20:48 04/29/18 05:05 Glucose (Fingerstick) 212 mg/dL (70-99) 310 mg/dL (70-99) 105 mg/dL (70-99) Sodium Level 136 mmol/L (136-145) Potassium Level 3.2 mmol/L (3.5-5.1) Chloride Level 103 mmol/L (98-107) Carbon Dioxide Level 21 mmol/L (21-32) Anion Gap 12 (6-14) Blood Urea Nitrogen 19 mg/dL (7-20) Creatinine 1.1 mg/dL (0.6-1.0) Estimated GFR (Cockcroft-Gault) 48.3 Glucose Level 126 mg/dL (70-99) Calcium Level 9.1 mg/dL (8.5-10.1) Magnesium Level 2.2 mg/dL (1.8-2.4) Test 04/29/18 08:06 04/29/18 12:15 Glucose (Fingerstick) 145 mg/dL (70-99) 250 mg/dL (70-99) Laboratory Tests Test 04/28/18 16:57 04/28/18 20:48 04/29/18 05:05 04/29/18 08:06 Glucose (Fingerstick) 310 mg/dL (70-99) 105 mg/dL (70-99) 145 mg/dL (70-99) Sodium Level 136 mmol/L (136-145) Potassium Level 3.2 mmol/L (3.5-5.1) Chloride Level 103 mmol/L (98-107) Carbon Dioxide Level 21 mmol/L (21-32) Anion Gap 12 (6-14) Blood Urea Nitrogen 19 mg/dL (7-20) Creatinine 1.1 mg/dL (0.6-1.0) Estimated GFR (Cockcroft-Gault) 48.3 Glucose Level 126 mg/dL (70-99) Calcium Level 9.1 mg/dL (8.5-10.1) Magnesium Level 2.2 mg/dL (1.8-2.4) Test 04/29/18 12:15 Glucose (Fingerstick) 250 mg/dL (70-99) Microbiology 04/27/18 Urine Culture - Final, Complete 04/27/18 Urine Culture Result 1 (HUNG) - Final, Complete Medications Current Medications Sodium Chloride 1,000 ml @ 100 mls/hr Q10H IV Last administered on 04/26/18at 18:59; Start 04/26/18 at 18:13; Stop 04/27/18 at 04:12; Status DC Enoxaparin Sodium (Lovenox 60mg Syringe) 60 mg 1X ONCE SQ ; Start 04/26/18 at 19:45; Stop 04/26/18 at 19:46; Status Cancel Heparin Sodium/ Dextrose 500 ml @ 0 mls/hr CONT PRN IV SEE I/O RECORD; Start at 20:00; Stop 04/26/18 at 20:01; Status DC Ondansetron HCl (Zofran) 4 mg PRN Q8HRS PRN IV NAUSEA/VOMITING; Start 04/26/18 at 20:00; Stop 04/27/18 at 19:59; Status DC Fentanyl Citrate (Fentanyl 2ml Vial) 50 mcg PRN Q1HR PRN IV PAIN Last administered on 04/27/18at 13:00; Start 04/26/18 at 20:00; Stop 04/27/18 at 19:59 ; Status DC Heparin Sodium/ Dextrose 500 ml @ 0 mls/hr CONT PRN IV SEE I/O RECORD Last administered on 04/26/18at 22:59; Start 04/26/18 at 20:00; Stop 04/27/18 at 13:58 ; Status DC Heparin Sodium (Porcine) (Heparin Sodium) 1,800 unit PRN Q6HRS PRN IV FOR UFH LEVEL LESS THAN 0.2 Last administered on 04/26/18at 22:52; Start 04/26/18 at 20: 00; Stop 04/27/18 at 13:59; Status DC Heparin Sodium (Porcine) (Heparin Sodium) 900 unit PRN Q6HRS PRN IV FOR UFH LEVEL 0.2 - 0.29 Last administered on 04/27/18at 08:16; Start 04/26/18 at 20:00; Stop 04/27/18 at 13:59; Status DC Insulin Human Lispro (HumaLOG) 0-9 UNITS TIDWMEALS SQ Last administered on 04/29at 13:03; Start 04/27/18 at 08:00 Dextrose (Dextrose 50%-Water Syringe) 12.5 gm PRN Q15MIN PRN IV SEE COMMENTS; Start 04/26/18 at 20:30 Labetalol HCl (Normodyne Iv Push) 20 mg PRN Q2HR PRN IVP HYPERTENSION, SEE COMMENTS Last administered on 04/27/18at 23:16; Start 04/26/18 at 20:45 Saliva Substitute (Biotene Moisturizing Mouth) 2 spray PRN Q15MIN PRN PO DRY MOUTH; Start 04/26/18 at 20:45 Lidocaine (Lidoderm) 1 patch DAILY TD Last administered on 04/29/18 08:43; Start 04/27/18 at 09:00 Miscellaneous (Lidoderm Patch Removal) 1 ea QHS MC Last administered on 20:34; Start 04/26/18 at 21:00 Pharmacy Consult (C.diff Med Screen By Rx) 1 each 1X ONCE MC ; Start 04/27/18 at 09:00; Stop 04/27/18 at 09:01; Status Cancel Info (Anti-Coagulation Monitoring By Pharmacy) 1 each PRN DAILY PRN MC SEE COMMENTS; Start 04/27/18 at 08:15; Stop 04/27/18 at 13:59; Status DC Aspirin (Ecotrin) 81 mg DAILYWBKFT PO Last administered on 04/29/18 08:43; Start 04/27/18 at 10:00 Ticagrelor (Brilinta) 90 mg BID PO Last administered on 04/29/18 08:43; Start 04/27/18 at 10:00 Insulin Glargine (Lantus) 14 units DAILY10 SQ Last administered on 04/29/18 08 :53; Start 04/27/18 at 11:00 Pantoprazole Sodium (Protonix) 40 mg DAILYAC PO Last administered on 04/29/18 08:43; Start 04/27/18 at 11:00 Lactobacillus Rhamnosus (Culturelle) 1 cap BID PO Last administered on 20:34; Start 04/27/18 at 21:00 Sodium Chloride 1,000 ml @ 100 mls/hr Q10H IV Last administered on 04/29/18 03:30; Start 04/27/18 at 11:30 Oxycodone/ Acetaminophen (Percocet 7.5/ 325) 1 tab PRN Q4HRS PRN PO PAIN Last administered on 04/29/18 08:43; Start 04/27/18 at 16:00 Potassium Chloride/Water 100 ml @ 100 mls/hr Q1H IV Last administered on 1/26/ 19at 14:56; Start 04/28/18 at 14:00; Stop 04/28/18 at 15:54; Status DC Potassium Chloride (Klor-Con) 40 meq 1X ONCE PO Last administered on at 17:13; Start 04/28/18 at 16:00; Stop 04/28/18 at 16:01; Status DC Potassium Chloride (Klor-Con) 40 meq 1X ONCE PO Last administered on at 12:57; Start 04/29/18 at 12:00; Stop 04/29/18 at 12:01; Status DC Potassium Chloride (Klor-Con) 20 meq DAILYWBKFT PO ; Start 04/30/18 at 08:00 Active Scripts Active Reported Santyl Ointment (Collagenase) 30 Gm Oint...g. 1 Rose TP DAILY DIRECTED BY PHYSICIAN Tramadol Hcl 50 Mg Tablet 50 Mg PO Q6HRS PRN Lisinopril 2.5 Mg Tablet 1 Tab PO DAILY Crestor (Rosuvastatin Calcium) 20 Mg Tablet 20 Mg PO HS Isosorbide Mononitrate Er (Isosorbide Mononitrate) 30 Mg Tab.er.24h 1 Tab PO DAILY Gabapentin 600 Mg Tablet 300 Mg PO HS Gabapentin 600 Mg Tablet 100 Mg PO NOON Gabapentin 600 Mg Tablet 200 Mg PO DAILYWBKFT Nitrofurantoin (Nitrofurantoin Macrocrystal) 100 Mg Capsule 1 Cap PO BID Metoprolol Tartrate 25 Mg Tablet 1 Tab PO BID Brilinta (Ticagrelor) 90 Mg Tablet 90 Mg PO BID Bumetanide 2 Mg Tablet 1 Tab PO DAILY NITROGLYCERIN SubLingual (Nitroglycerin) 0.4 Mg Tab.subl 0.4 Mg SL PRN Q5MIN PRN Cyclobenzaprine Hcl 10 Mg Tablet 1 Tab PO BID Advair 250-50 Diskus (Fluticasone/Salmeterol) 1 Each Disk.w.dev 1 Puff IH BID Vitals/I & O Vital Sign - Last 24 Hours 04/28/18 04/28/18 04/28/18 04/28/18 15:00 19:10 19:19 19:32 Temp 98.3 98.5 98.3 98.5 Pulse 88 82 Resp 16 21 18 B/P (MAP) 149/85 (106) 108/49 (68) Pulse Ox 97 97 O2 Delivery Room Air Room Air Room Air Room Air 04/28/18 04/28/18 04/29/18 04/29/18 20:33 23:20 03:00 07:00 Temp 98.1 98.0 98.0 98.1 98.0 98.0 Pulse 73 85 84 Resp 18 22 21 12 B/P (MAP) 101/52 (68) 132/64 (86) 127/86 (100) Pulse Ox 96 97 98 O2 Delivery Room Air Room Air Room Air Room Air O2 Flow Rate 2.0 04/29/18 04/29/18 04/29/18 04/29/18 08:00 08:15 08:43 11:00 Temp 98.1 97.9 98.1 97.9 Pulse 84 73 Resp 12 12 B/P (MAP) 127/86 (100) 138/65 (89) Pulse Ox 98 98 98 O2 Delivery Room Air Room Air Room Air Room Air O2 Flow Rate 2.0 2.0 Intake and Output 04/28/18 04/28/18 04/29/18 15:01 23:01 07:01 Intake Total 0 ml 1000 ml 1350 ml Output Total 500 ml 300 ml 1000 ml Balance -500 ml 700 ml 350 ml Nutrition Consultation Dietary Evaluation: Recommendations by RD: Protein supplementation, PPN/TPN Comments: REC PPN for short-term nutrition needs while pt remains NPO REC Ensure clear and Masood if/when advanced to clear liquids REC Ensure supplements, MVI, and Vit C or Masood when on full liquids Goal diet cardiac/ADA, high protein Expected Outcomes/Goals: Diet advancement Interpretation of weight loss: >7.5% in 3 months Malnutrition Findings: Food and Nutrition Intake (Mod: <75% est energy req 7days Weight Status: Appropriate FROY AVELAR MD Apr 29, 2018 13:28
[2018-04-29] MEDS ORDERED: POLYVINYL ALCOHOL 1.4% OPHTH SOLUTION 15ML BOTTLE. OU PRN (14:15)
[2018-04-29] MEDS: PATCH REMOVAL. MC SCH (20:36)
[2018-04-30] VITALS (9 sets, daily range): BP systolic 107–193; BP diastolic 44–81
[2018-04-30 07:28] LABS: HEMATOCRIT 29.5 % (36.0-47.0); HEMOGLOBIN 9.6 g/dL (12.0-15.5); RED BLOOD COUNT 3.47 x10^6/uL (3.50-5.40); RED CELL DISTRIBUTION WIDTH 17.3 % (11.5-14.5); WHITE BLOOD COUNT 7.4 x10^3/uL (4.0-11.0)
[2018-04-30] MEDS: INSULIN LISPRO 300 UNITS/3 ML INSULN.PEN. SQ SCH ×3 (08:00→18:20)
[2018-04-30] MEDS: LABETALOL 20 MG/4 ML DISP.SYRIN. IVP PRN ×2 (08:01→16:11)
[2018-04-30] MEDS: IV RINGERS,LACTATED 1000ML 1,000 ML IV SCH (11:31)
--- NOTE | 2018-04-30 11:32 | PDOC ---
PROGRESS NOTES Chief Complaint Chief Complaint acute renal failure, vasomotor nephropathy likely, hypovolemic hyponatremia acute pancreatitis, w./ u SIRS, w/ acute pain, pancreas dysfunction Dm2, poor control, check A1c, add SSI, some hyperosmolar non-ketosis would also explain lytes nausea and vomiting and abd pain CAD, hx CHF, is s/p cardiac cath x2 this month, was not stented at [facility], then one was placed at [facility]. falls, chest contusion, weakness and debility, History of Present Illness History of Present Illness Admitted for ALLY, hyponatremia, pancreatitis. MRCP - Biliary tree is normal caliber. No choledocholithiasis. 04/29: Still with abdominal pain Overnight no events. GI plans EGD now due to pain Plan: Cont current plan Replace potassium PT/OT Labs Vitals Vitals Vital Signs Date Time Temp Pulse Resp B/P (MAP) Pulse Ox O2 Delivery O2 Flow Rate FiO2 04/30/18 11:23 Room Air 2.0 04/30/18 08:23 67 153/67 (95) 04/30/18 07:00 97.5 16 98 97.5 Physical Exam General: Alert, Oriented X3, Cooperative, No acute distress Heart: Regular rate Abdomen: Normal bowel sounds Extremities: No clubbing, No cyanosis Skin: No breakdown Labs LABS Laboratory Tests Test 04/29/18 12:15 04/29/18 16:54 04/29/18 20:37 04/30/18 06:30 Glucose (Fingerstick) 250 mg/dL (70-99) 154 mg/dL (70-99) 255 mg/dL (70-99) White Blood Count 7.4 x10^3/uL (4.0-11.0) Red Blood Count 3.47 x10^6/uL (3.50-5.40) Hemoglobin 9.6 g/dL (12.0-15.5) Hematocrit 29.5 % (36.0-47.0) Mean Corpuscular Volume 85 fL (79-100) Mean Corpuscular Hemoglobin 28 pg (25-35) Mean Corpuscular Hemoglobin Concent 33 g/dL (31-37) Red Cell Distribution Width 17.3 % (11.5-14.5) Platelet Count 270 x10^3/uL (140-400) Test 04/30/18 07:14 Glucose (Fingerstick) 164 mg/dL (70-99) Assessment and Plan Assessmemt and Plan Problems Medical Problems: (1) Acute pancreatitis Status: Acute (2) Chest pain Status: Acute Comment Review of Relevant I have reviewed the following items hugh (where applicable) has been applied. Labs Laboratory Tests Test 04/28/18 16:57 04/28/18 20:48 04/29/18 05:05 04/29/18 08:06 Glucose (Fingerstick) 310 mg/dL (70-99) 105 mg/dL (70-99) 145 mg/dL (70-99) Sodium Level 136 mmol/L (136-145) Potassium Level 3.2 mmol/L (3.5-5.1) Chloride Level 103 mmol/L (98-107) Carbon Dioxide Level 21 mmol/L (21-32) Anion Gap 12 (6-14) Blood Urea Nitrogen 19 mg/dL (7-20) Creatinine 1.1 mg/dL (0.6-1.0) Estimated GFR (Cockcroft-Gault) 48.3 Glucose Level 126 mg/dL (70-99) Calcium Level 9.1 mg/dL (8.5-10.1) Magnesium Level 2.2 mg/dL (1.8-2.4) Test 04/29/18 12:15 04/29/18 16:54 04/29/18 20:37 04/30/18 06:30 Glucose (Fingerstick) 250 mg/dL (70-99) 154 mg/dL (70-99) 255 mg/dL (70-99) White Blood Count 7.4 x10^3/uL (4.0-11.0) Red Blood Count 3.47 x10^6/uL (3.50-5.40) Hemoglobin 9.6 g/dL (12.0-15.5) Hematocrit 29.5 % (36.0-47.0) Mean Corpuscular Volume 85 fL (79-100) Mean Corpuscular Hemoglobin 28 pg (25-35) Mean Corpuscular Hemoglobin Concent 33 g/dL (31-37) Red Cell Distribution Width 17.3 % (11.5-14.5) Platelet Count 270 x10^3/uL (140-400) Test 04/30/18 07:14 Glucose (Fingerstick) 164 mg/dL (70-99) Laboratory Tests Test 04/29/18 12:15 04/29/18 16:54 04/29/18 20:37 04/30/18 06:30 Glucose (Fingerstick) 250 mg/dL (70-99) 154 mg/dL (70-99) 255 mg/dL (70-99) White Blood Count 7.4 x10^3/uL (4.0-11.0) Red Blood Count 3.47 x10^6/uL (3.50-5.40) Hemoglobin 9.6 g/dL (12.0-15.5) Hematocrit 29.5 % (36.0-47.0) Mean Corpuscular Volume 85 fL (79-100) Mean Corpuscular Hemoglobin 28 pg (25-35) Mean Corpuscular Hemoglobin Concent 33 g/dL (31-37) Red Cell Distribution Width 17.3 % (11.5-14.5) Platelet Count 270 x10^3/uL (140-400) Test 04/30/18 07:14 Glucose (Fingerstick) 164 mg/dL (70-99) Microbiology 04/27/18 Urine Culture - Final, Complete 04/27/18 Urine Culture Result 1 (HUNG) - Final, Complete Medications Current Medications Sodium Chloride 1,000 ml @ 100 mls/hr Q10H IV Last administered on 04/26/18at 18:59; Start 04/26/18 at 18:13; Stop 04/27/18 at 04:12; Status DC Enoxaparin Sodium (Lovenox 60mg Syringe) 60 mg 1X ONCE SQ ; Start 04/26/18 at 19:45; Stop 04/26/18 at 19:46; Status Cancel Heparin Sodium/ Dextrose 500 ml @ 0 mls/hr CONT PRN IV SEE I/O RECORD; Start at 20:00; Stop 04/26/18 at 20:01; Status DC Ondansetron HCl (Zofran) 4 mg PRN Q8HRS PRN IV NAUSEA/VOMITING; Start 04/26/18 at 20:00; Stop 04/27/18 at 19:59; Status DC Fentanyl Citrate (Fentanyl 2ml Vial) 50 mcg PRN Q1HR PRN IV PAIN Last administered on 04/27/18at 13:00; Start 04/26/18 at 20:00; Stop 04/27/18 at 19:59 ; Status DC Heparin Sodium/ Dextrose 500 ml @ 0 mls/hr CONT PRN IV SEE I/O RECORD Last administered on 04/26/18at 22:59; Start 04/26/18 at 20:00; Stop 04/27/18 at 13:58 ; Status DC Heparin Sodium (Porcine) (Heparin Sodium) 1,800 unit PRN Q6HRS PRN IV FOR UFH LEVEL LESS THAN 0.2 Last administered on 04/26/18at 22:52; Start 04/26/18 at 20: 00; Stop 04/27/18 at 13:59; Status DC Heparin Sodium (Porcine) (Heparin Sodium) 900 unit PRN Q6HRS PRN IV FOR UFH LEVEL 0.2 - 0.29 Last administered on 04/27/18 08:16; Start 04/26/18 at 20:00; Stop 04/27/18 at 13:59; Status DC Insulin Human Lispro (HumaLOG) 0-9 UNITS TIDWMEALS SQ Last administered on 04/29at 17:55; Start 04/27/18 at 08:00 Dextrose (Dextrose 50%-Water Syringe) 12.5 gm PRN Q15MIN PRN IV SEE COMMENTS; Start 04/26/18 at 20:30 Labetalol HCl (Normodyne Iv Push) 20 mg PRN Q2HR PRN IVP HYPERTENSION, SEE COMMENTS Last administered on 04/30/18at 08:01; Start 04/26/18 at 20:45 Saliva Substitute (Biotene Moisturizing Mouth) 2 spray PRN Q15MIN PRN PO DRY MOUTH; Start 04/26/18 at 20:45 Lidocaine (Lidoderm) 1 patch DAILY TD Last administered on 04/29/18at 08:43; Start 04/27/18 at 09:00 Miscellaneous (Lidoderm Patch Removal) 1 ea QHS MC Last administered on at 20:36; Start 04/26/18 at 21:00 Pharmacy Consult (C.diff Med Screen By Rx) 1 each 1X ONCE MC ; Start 04/27/18 at 09:00; Stop 04/27/18 at 09:01; Status Cancel Info (Anti-Coagulation Monitoring By Pharmacy) 1 each PRN DAILY PRN MC SEE COMMENTS; Start 04/27/18 at 08:15; Stop 04/27/18 at 13:59; Status DC Aspirin (Ecotrin) 81 mg DAILYWBKFT PO Last administered on 04/29/18 08:43; Start 04/27/18 at 10:00 Ticagrelor (Brilinta) 90 mg BID PO Last administered on 04/29/18at 20:36; Start 04/27/18 at 10:00 Insulin Glargine (Lantus) 14 units DAILY10 SQ Last administered on 04/29/18 08 :53; Start 04/27/18 at 11:00 Pantoprazole Sodium (Protonix) 40 mg DAILYAC PO Last administered on 04/29/18 08:43; Start 04/27/18 at 11:00 Lactobacillus Rhamnosus (Culturelle) 1 cap BID PO Last administered on at 20:36; Start 04/27/18 at 21:00 Sodium Chloride 1,000 ml @ 100 mls/hr Q10H IV Last administered on 04/29/18at 23:58; Start 04/27/18 at 11:30 Oxycodone/ Acetaminophen (Percocet 7.5/ 325) 1 tab PRN Q4HRS PRN PO PAIN Last administered on 04/29/18 08:43; Start 04/27/18 at 16:00 Potassium Chloride/Water 100 ml @ 100 mls/hr Q1H IV Last administered on at 14:56; Start 04/28/18 at 14:00; Stop 04/28/18 at 15:54; Status DC Potassium Chloride (Klor-Con) 40 meq 1X ONCE PO Last administered on at 17:13; Start 04/28/18 at 16:00; Stop 04/28/18 at 16:01; Status DC Potassium Chloride (Klor-Con) 40 meq 1X ONCE PO Last administered on at 12:57; Start 04/29/18 at 12:00; Stop 04/29/18 at 12:01; Status DC Potassium Chloride (Klor-Con) 20 meq DAILYWBKFT PO ; Start 04/30/18 at 08:00 Artificial Tears (Artificial Tears) 1 drop PRN Q15MIN PRN OU DRY EYE Last administered on 04/29/18at 14:27; Start 04/29/18 at 14:15 Ringer's Solution 1,000 ml @ 75 mls/hr [id number] IV ; Start 04/30/18 at 11:30 Active Scripts Active Reported Santyl Ointment (Collagenase) 30 Gm Oint...g. 1 Rose TP DAILY DIRECTED BY PHYSICIAN Tramadol Hcl 50 Mg Tablet 50 Mg PO Q6HRS PRN Lisinopril 2.5 Mg Tablet 1 Tab PO DAILY Crestor (Rosuvastatin Calcium) 20 Mg Tablet 20 Mg PO HS Isosorbide Mononitrate Er (Isosorbide Mononitrate) 30 Mg Tab.er.24h 1 Tab PO DAILY Gabapentin 600 Mg Tablet 300 Mg PO HS Gabapentin 600 Mg Tablet 100 Mg PO NOON Gabapentin 600 Mg Tablet 200 Mg PO DAILYWBKFT Nitrofurantoin (Nitrofurantoin Macrocrystal) 100 Mg Capsule 1 Cap PO BID Metoprolol Tartrate 25 Mg Tablet 1 Tab PO BID Brilinta (Ticagrelor) 90 Mg Tablet 90 Mg PO BID Bumetanide 2 Mg Tablet 1 Tab PO DAILY NITROGLYCERIN SubLingual (Nitroglycerin) 0.4 Mg Tab.subl 0.4 Mg SL PRN Q5MIN PRN Cyclobenzaprine Hcl 10 Mg Tablet 1 Tab PO BID Advair 250-50 Diskus (Fluticasone/Salmeterol) 1 Each Disk.w.dev 1 Puff IH BID Vitals/I & O Vital Sign - Last 24 Hours 04/29/18 04/29/18 04/29/18 04/29/18 15:00 16:26 19:10 20:30 Temp 97.9 98.4 97.9 98.4 Pulse 79 84 Resp 15 18 B/P (MAP) 194/79 (117) 134/42 (72) Pulse Ox 99 96 O2 Delivery Room Air Room Air Room Air Room Air 04/29/18 04/30/18 04/30/18 04/30/18 22:45 02:40 07:00 07:58 Temp 97.7 98.3 97.5 97.7 98.3 97.5 Pulse 80 84 86 89 Resp 18 18 16 B/P (MAP) 149/55 (86) 164/55 (91) 193/81 (118) 175/77 (109) Pulse Ox 98 98 98 O2 Delivery Room Air Room Air Room Air 04/30/18 04/30/18 04/30/18 08:01 08:23 11:23 Pulse 89 67 B/P (MAP) 175/77 153/67 (95) O2 Delivery Room Air O2 Flow Rate 2.0 Intake and Output 04/29/18 04/29/18 04/30/18 15:01 23:01 07:01 Intake Total 400 ml 240 ml 500 ml Output Total 300 ml 2300 ml Balance 100 ml -2060 ml 500 ml Nutrition Consultation Dietary Evaluation: Recommendations by RD: Protein supplementation, PPN/TPN Comments: REC PPN for short-term nutrition needs while pt remains NPO REC Ensure clear and Masood if/when advanced to clear liquids REC Ensure supplements, MVI, and Vit C or Masood when on full liquids Goal diet cardiac/ADA, high protein Expected Outcomes/Goals: Diet advancement Interpretation of weight loss: >7.5% in 3 months Malnutrition Findings: Food and Nutrition Intake (Mod: <75% est energy req 7days Weight Status: Appropriate JENNIFER GALO MD Apr 30, 2018 11:32
[2018-04-30] MEDS ORDERED: PROPOFOL 20 ML IV ONE (12:24)
[2018-04-30] MEDS ORDERED: LIDOCAINE 2% 100 MG/5 ML SYRINGE. ONE (12:25)
--- NOTE | 2018-04-30 12:51 | PDOC4 ---
Operative Note Operative Note EGD WITH BIOPSIES Meds propofol per anesthesia Pre-op dx epigastria abd pain post-op dx esophageal/gastric ulcers s/p bx Plan advance diet PPI therapy for 2 months EGD at that time to confirm healing pending biopsy results MY CHE MD Apr 30, 2018 12:51
[2018-04-30 13:22] LABS: CA 19-9 31 U/mL (0-35)
[2018-04-30] MEDS: INSULIN GLARGINE 300 UNITS/3 ML INSULN.PEN. SQ SCH (14:30)
[2018-04-30] MEDS: PANTOPRAZOLE 40 MG TABLET.DR. PO SCH (14:30)
[2018-04-30] MEDS: LIDOCAINE (700MG/PATCH) PATCH. TD SCH (14:30)
[2018-04-30] MEDS: ASPIRIN ENTERIC COATED 81 MG TABLET.DR. PO SCH (14:30)
[2018-04-30] MEDS: IV NORMAL SALINE 1000ML BAG 1,000 ML IV SCH ×3 (14:30→23:45)
[2018-04-30] MEDS: POTASSIUM CHLORIDE 20 MEQ TABLET.ER. PO SCH (14:30)
[2018-04-30] MEDS: TICAGRELOR 90 MG TABLET. PO SCH ×2 (14:30→21:04)
[2018-04-30] MEDS: LACTOBACILLUS RHAMNOSUS GG 1 CAPSULE. PO SCH ×2 (14:30→21:03)
--- NOTE | 2018-04-30 14:55 | NUR ---
SS following for discharge planning. SS reviewed pt chart. Pt is from home with family. PT recommended home with home healthcare. SS met with pt and family in room to discuss discharge planning and home healthcare options. Pt reported that she was previously on services with [facility], ; fax [phone]. Pt reported that she will return to home with [facility]. Pt's RN notified. SS will await discharge orders and will proceed accordingly.
[2018-04-30] MEDS: oxyCODONE/APAP 7.5/325 1 TAB TABLET PO PRN (16:22)
[2018-04-30 17:13] LABS: IGG1 961 mg/dL (248-810); IGG2 155 mg/dL (130-555); IGG3 53 mg/dL (15-102); IGG4 52 mg/dL (2-96); TOTAL IGG 1161 mg/dL (700-1600)
--- NOTE | 2018-04-30 19:40 | NUR ---
Patient has been complaining of itchy eyes not relieved with artificial tears or saline drops. Patient requesting something for allergies, specifically Benadryl, to see if that helps. Paged Dr. An.
[2018-04-30] MEDS ORDERED: diphenhydrAMINE HCL 25 MG CAPSULE PO PRN ×2 (20:45)
[2018-04-30] MEDS: PATCH REMOVAL. MC SCH (21:00)
[2018-05-01] MEDS: IV RINGERS,LACTATED 1000ML 1,000 ML IV SCH (00:50)
[2018-05-01 02:45] VITALS: BP 145/51
[2018-05-01] MEDS: oxyCODONE/APAP 7.5/325 1 TAB TABLET PO PRN (04:30)
[2018-05-01 05:41] LABS: GFR 53.9; POTASSIUM 3.4 mmol/L (3.5-5.1)
[2018-05-01 07:00] VITALS: BP 156/57
[2018-05-01] MEDS: LACTOBACILLUS RHAMNOSUS GG 1 CAPSULE. PO SCH (08:30)
[2018-05-01] MEDS: PANTOPRAZOLE 40 MG TABLET.DR. PO SCH (08:30)
[2018-05-01] MEDS: POTASSIUM CHLORIDE 20 MEQ TABLET.ER. PO SCH (08:30)
[2018-05-01] MEDS: TICAGRELOR 90 MG TABLET. PO SCH (08:30)
[2018-05-01] MEDS: ASPIRIN ENTERIC COATED 81 MG TABLET.DR. PO SCH (08:30)
[2018-05-01] MEDS: LIDOCAINE (700MG/PATCH) PATCH. TD SCH (08:31)
[2018-05-01] MEDS: INSULIN LISPRO 300 UNITS/3 ML INSULN.PEN. SQ SCH ×2 (08:33→12:07)
--- NOTE | 2018-05-01 09:31 | PDOC ---
Subjective: Subjective: Feeling much better. Tolerating PO, denies pain. Objective: Vital Signs: Vital Signs Date Time Temp Pulse Resp B/P (MAP) Pulse Ox O2 Delivery O2 Flow Rate FiO2 05/01/18 07:00 97.5 74 18 156/57 (90) 97 Room Air 97.5 04/30/18 12:52 2.0 Labs: Laboratory Tests Test 04/30/18 13:47 04/30/18 17:20 04/30/18 20:31 05/01/18 07:24 Glucose (Fingerstick) 201 mg/dL (70-99) 320 mg/dL (70-99) 218 mg/dL (70-99) 183 mg/dL (70-99) Imaging: EGD esophageal/gastric ulcers s/p bx MRCP IMPRESSION: Biliary tree is normal caliber. No choledocholithiasis. US Impression: Gallbladder in normal. Fatty infiltration of the liver. CT A/P Impression: No definite inflammatory findings about the pancreas. Significant calcification of the abdominal aorta, iliac arteries, and common femoral arteries. significant calcification about the origins of the celiac and superior mesenteric arteries. PE: GEN: NAD, sitting up in bed, smiling and brushing hair LUNGS: room air HEART: RRR ABD: S/ND/NT NEURO/PSYCH: A & O �3 A/P: Abd pain - resolved -workup as above -- EGD path pending - pending this, follow-up in 2 month for interval EGD to asses for healing of ulcers. Unclear significant of elevated lipase w/ normal pancreas and GB imaging, normal IgG4, normal CA19-9, normal calcium, normal lipids. Consider abd doppler if pain recurs. D/w cardiology re: Brilinta and ASA - unclear re: what kind of stent - okay to continue, and continue PPI. SILVIA LEMON May 01, 2018 09:31
--- NOTE | 2018-05-01 10:22 | PDOC ---
PROGRESS NOTES Chief Complaint Chief Complaint acute renal failure, vasomotor nephropathy likely, hypovolemic hyponatremia acute pancreatitis, w./ u SIRS, w/ acute pain, pancreas dysfunction Dm2, poor control, check A1c, add SSI, some hyperosmolar non-ketosis would also explain lytes nausea and vomiting and abd pain CAD, hx CHF, is s/p cardiac cath x2 this month, was not stented at [facility], then one was placed at [facility]. falls, chest contusion, weakness and debility, History of Present Illness History of Present Illness Admitted for ALLY, hyponatremia, pancreatitis. MRCP - Biliary tree is normal caliber. No choledocholithiasis. 04/29: Still with abdominal pain 04/30: EGD - esophageal/gastric ulcers s/p bx - plan for 2 months PPI and repeat EGD at that time Overnight no events. Tolerated regular breakfast, she is dressed, ready to leave. K low, ordered replacement. She is still weak, notes she wishes for [place] home health Plan: Cont current plan Replace potassium PT/OT Labs Ok for d/c if ok with GI, needs f/u on biopsy results and scheduled GI f/u. Vitals Vitals Vital Signs Date Time Temp Pulse Resp B/P (MAP) Pulse Ox O2 Delivery O2 Flow Rate FiO2 05/01/18 07:00 97.5 74 18 156/57 (90) 97 Room Air 97.5 04/30/18 12:52 2.0 Physical Exam General: Alert, Oriented X3, Cooperative, No acute distress Heart: Regular rate Abdomen: Normal bowel sounds Extremities: No clubbing, No cyanosis Skin: No breakdown Labs LABS Laboratory Tests Test 04/30/18 13:47 04/30/18 17:20 04/30/18 20:31 05/01/18 05:15 Glucose (Fingerstick) 201 mg/dL (70-99) 320 mg/dL (70-99) 218 mg/dL (70-99) Sodium Level 136 mmol/L (136-145) Potassium Level 3.4 mmol/L (3.5-5.1) Chloride Level 102 mmol/L (98-107) Carbon Dioxide Level 22 mmol/L (21-32) Anion Gap 12 (6-14) Blood Urea Nitrogen 15 mg/dL (7-20) Creatinine 1.0 mg/dL (0.6-1.0) Estimated GFR (Cockcroft-Gault) 53.9 Glucose Level 197 mg/dL (70-99) Calcium Level 9.0 mg/dL (8.5-10.1) Test 05/01/18 07:24 Glucose (Fingerstick) 183 mg/dL (70-99) Assessment and Plan Assessmemt and Plan Problems Medical Problems: (1) Acute pancreatitis Status: Acute (2) Chest pain Status: Acute Comment Review of Relevant I have reviewed the following items hugh (where applicable) has been applied. Labs Laboratory Tests Test 04/29/18 12:15 04/29/18 16:54 04/29/18 20:37 04/30/18 06:30 Glucose (Fingerstick) 250 mg/dL (70-99) 154 mg/dL (70-99) 255 mg/dL (70-99) White Blood Count 7.4 x10^3/uL (4.0-11.0) Red Blood Count 3.47 x10^6/uL (3.50-5.40) Hemoglobin 9.6 g/dL (12.0-15.5) Hematocrit 29.5 % (36.0-47.0) Mean Corpuscular Volume 85 fL (79-100) Mean Corpuscular Hemoglobin 28 pg (25-35) Mean Corpuscular Hemoglobin Concent 33 g/dL (31-37) Red Cell Distribution Width 17.3 % (11.5-14.5) Platelet Count 270 x10^3/uL (140-400) Test 04/30/18 07:14 04/30/18 13:47 04/30/18 17:20 04/30/18 20:31 Glucose (Fingerstick) 164 mg/dL (70-99) 201 mg/dL (70-99) 320 mg/dL (70-99) 218 mg/dL (70-99) Test 05/01/18 05:15 05/01/18 07:24 Sodium Level 136 mmol/L (136-145) Potassium Level 3.4 mmol/L (3.5-5.1) Chloride Level 102 mmol/L (98-107) Carbon Dioxide Level 22 mmol/L (21-32) Anion Gap 12 (6-14) Blood Urea Nitrogen 15 mg/dL (7-20) Creatinine 1.0 mg/dL (0.6-1.0) Estimated GFR (Cockcroft-Gault) 53.9 Glucose Level 197 mg/dL (70-99) Calcium Level 9.0 mg/dL (8.5-10.1) Glucose (Fingerstick) 183 mg/dL (70-99) Laboratory Tests Test 04/30/18 13:47 04/30/18 17:20 04/30/18 20:31 05/01/18 05:15 Glucose (Fingerstick) 201 mg/dL (70-99) 320 mg/dL (70-99) 218 mg/dL (70-99) Sodium Level 136 mmol/L (136-145) Potassium Level 3.4 mmol/L (3.5-5.1) Chloride Level 102 mmol/L (98-107) Carbon Dioxide Level 22 mmol/L (21-32) Anion Gap 12 (6-14) Blood Urea Nitrogen 15 mg/dL (7-20) Creatinine 1.0 mg/dL (0.6-1.0) Estimated GFR (Cockcroft-Gault) 53.9 Glucose Level 197 mg/dL (70-99) Calcium Level 9.0 mg/dL (8.5-10.1) Test 05/01/18 07:24 Glucose (Fingerstick) 183 mg/dL (70-99) Microbiology 04/27/18 Urine Culture - Final, Complete 04/27/18 Urine Culture Result 1 (HUNG) - Final, Complete Medications Current Medications Sodium Chloride 1,000 ml @ 100 mls/hr Q10H IV Last administered on 04/26/18at 18:59; Start 04/26/18 at 18:13; Stop 04/27/18 at 04:12; Status DC Enoxaparin Sodium (Lovenox 60mg Syringe) 60 mg 1X ONCE SQ ; Start 04/26/18 at 19:45; Stop 04/26/18 at 19:46; Status Cancel Heparin Sodium/ Dextrose 500 ml @ 0 mls/hr CONT PRN IV SEE I/O RECORD; Start at 20:00; Stop 04/26/18 at 20:01; Status DC Ondansetron HCl (Zofran) 4 mg PRN Q8HRS PRN IV NAUSEA/VOMITING; Start 04/26/18 at 20:00; Stop 04/27/18 at 19:59; Status DC Fentanyl Citrate (Fentanyl 2ml Vial) 50 mcg PRN Q1HR PRN IV PAIN Last administered on 04/27/18 13:00; Start 04/26/18 at 20:00; Stop 04/27/18 at 19:59 ; Status DC Heparin Sodium/ Dextrose 500 ml @ 0 mls/hr CONT PRN IV SEE I/O RECORD Last administered on 04/26/18 22:59; Start 04/26/18 at 20:00; Stop 04/27/18 at 13:58 ; Status DC Heparin Sodium (Porcine) (Heparin Sodium) 1,800 unit PRN Q6HRS PRN IV FOR UFH LEVEL LESS THAN 0.2 Last administered on 04/26/18 22:52; Start 04/26/18 at 20: 00; Stop 04/27/18 at 13:59; Status DC Heparin Sodium (Porcine) (Heparin Sodium) 900 unit PRN Q6HRS PRN IV FOR UFH LEVEL 0.2 - 0.29 Last administered on 04/27/18 08:16; Start 04/26/18 at 20:00; Stop 04/27/18 at 13:59; Status DC Insulin Human Lispro (HumaLOG) 0-9 UNITS TIDWMEALS SQ Last administered on 05/01 08:33; Start 04/27/18 at 08:00 Dextrose (Dextrose 50%-Water Syringe) 12.5 gm PRN Q15MIN PRN IV SEE COMMENTS; Start 04/26/18 at 20:30 Labetalol HCl (Normodyne Iv Push) 20 mg PRN Q2HR PRN IVP HYPERTENSION, SEE COMMENTS Last administered on 04/30/18at 16:11; Start 04/26/18 at 20:45 Saliva Substitute (Biotene Moisturizing Mouth) 2 spray PRN Q15MIN PRN PO DRY MOUTH; Start 04/26/18 at 20:45 Lidocaine (Lidoderm) 1 patch DAILY TD Last administered on 05/01/18 08:31; Start 04/27/18 at 09:00 Miscellaneous (Lidoderm Patch Removal) 1 ea QHS MC Last administered on 20:36; Start 04/26/18 at 21:00 Pharmacy Consult (C.diff Med Screen By Rx) 1 each 1X ONCE MC ; Start 04/27/18 at 09:00; Stop 04/27/18 at 09:01; Status Cancel Info (Anti-Coagulation Monitoring By Pharmacy) 1 each PRN DAILY PRN MC SEE COMMENTS; Start 04/27/18 at 08:15; Stop 04/27/18 at 13:59; Status DC Aspirin (Ecotrin) 81 mg DAILYWBKFT PO Last administered on 05/01/18at 08:30; Start 04/27/18 at 10:00 Ticagrelor (Brilinta) 90 mg BID PO Last administered on 05/01/18at 08:30; Start 04/27/18 at 10:00 Insulin Glargine (Lantus) 14 units DAILY10 SQ Last administered on 04/30/18 14 :30; Start 04/27/18 at 11:00 Pantoprazole Sodium (Protonix) 40 mg DAILYAC PO Last administered on 05/01/18 08:30; Start 04/27/18 at 11:00 Lactobacillus Rhamnosus (Culturelle) 1 cap BID PO Last administered on 08:30; Start 04/27/18 at 21:00 Sodium Chloride 1,000 ml @ 100 mls/hr Q10H IV Last administered on 04/30/18at 23:45; Start 04/27/18 at 11:30 Oxycodone/ Acetaminophen (Percocet 7.5/ 325) 1 tab PRN Q4HRS PRN PO PAIN Last administered on 05/01/18 04:30; Start 04/27/18 at 16:00 Potassium Chloride/Water 100 ml @ 100 mls/hr Q1H IV Last administered on at 14:56; Start 04/28/18 at 14:00; Stop 04/28/18 at 15:54; Status DC Potassium Chloride (Klor-Con) 40 meq 1X ONCE PO Last administered on at 17:13; Start 04/28/18 at 16:00; Stop 04/28/18 at 16:01; Status DC Potassium Chloride (Klor-Con) 40 meq 1X ONCE PO Last administered on at 12:57; Start 04/29/18 at 12:00; Stop 04/29/18 at 12:01; Status DC Potassium Chloride (Klor-Con) 20 meq DAILYWBKFT PO Last administered on at 08:30; Start 04/30/18 at 08:00 Artificial Tears (Artificial Tears) 1 drop PRN Q15MIN PRN OU DRY EYE Last administered on 04/29/18at 14:27; Start 04/29/18 at 14:15 Ringer's Solution 1,000 ml @ 75 mls/hr [id number] IV Last administered on at 11:31; Start 04/30/18 at 11:30 Propofol 20 ml @ As Directed STK-MED ONCE IV ; Start 04/30/18 at 12:24; Stop at 12:26; Status DC Lidocaine HCl (Lidocaine HCl 2% Abboject) 100 mg STK-MED ONCE .ROUTE ; Start at 12:25; Stop 04/30/18 at 12:27; Status DC Diphenhydramine HCl (Benadryl) 25 mg PRN Q8HRS PRN PO ITCHING MILD TO MODERATE Last administered on 04/30/18at 21:04; Start 04/30/18 at 20:45 Diphenhydramine HCl (Benadryl) 50 mg PRN Q8HRS PRN PO ITCHING SEVERE; Start at 20:45 Active Scripts Active Reported Santyl Ointment (Collagenase) 30 Gm Oint...g. 1 Rose TP DAILY DIRECTED BY PHYSICIAN Tramadol Hcl 50 Mg Tablet 50 Mg PO Q6HRS PRN Lisinopril 2.5 Mg Tablet 1 Tab PO DAILY Crestor (Rosuvastatin Calcium) 20 Mg Tablet 20 Mg PO HS Isosorbide Mononitrate Er (Isosorbide Mononitrate) 30 Mg Tab.er.24h 1 Tab PO DAILY Gabapentin 600 Mg Tablet 300 Mg PO HS Gabapentin 600 Mg Tablet 100 Mg PO NOON Gabapentin 600 Mg Tablet 200 Mg PO DAILYWBKFT Nitrofurantoin (Nitrofurantoin Macrocrystal) 100 Mg Capsule 1 Cap PO BID Metoprolol Tartrate 25 Mg Tablet 1 Tab PO BID Brilinta (Ticagrelor) 90 Mg Tablet 90 Mg PO BID Bumetanide 2 Mg Tablet 1 Tab PO DAILY NITROGLYCERIN SubLingual (Nitroglycerin) 0.4 Mg Tab.subl 0.4 Mg SL PRN Q5MIN PRN Cyclobenzaprine Hcl 10 Mg Tablet 1 Tab PO BID Advair 250-50 Diskus (Fluticasone/Salmeterol) 1 Each Disk.w.dev 1 Puff IH BID Vitals/I & O Vital Sign - Last 24 Hours 04/30/18 04/30/18 04/30/18 04/30/18 11:00 11:23 12:52 13:07 Temp 97.6 98 98.0 97.6 98.0 98.0 Pulse 71 73 70 Resp 16 18 18 B/P (MAP) 143/63 (89) 175/67 159/65 Pulse Ox 98 100 99 O2 Delivery Room Air Room Air Room Air Room Air O2 Flow Rate 2.0 2.0 04/30/18 04/30/18 04/30/18 04/30/18 13:22 15:00 16:11 16:22 Temp 97.5 97.5 Pulse 71 74 74 Resp 18 16 20 B/P (MAP) 161/57 180/74 (109) 184/72 Pulse Ox 99 98 O2 Delivery Room Air Room Air 04/30/18 04/30/18 04/30/18 04/30/18 19:15 19:45 21:11 22:50 Temp 97.7 98.6 97.7 98.6 Pulse 66 67 71 Resp 18 18 B/P (MAP) 107/44 (65) 138/63 (88) 131/44 (73) Pulse Ox 98 98 O2 Delivery Room Air Room Air Room Air 05/01/18 05/01/18 05/01/18 05/01/18 02:45 04:30 05:26 07:00 Temp 97.8 97.5 97.8 97.5 Pulse 72 74 Resp 18 20 18 18 B/P (MAP) 145/51 (82) 156/57 (90) Pulse Ox 97 93 97 O2 Delivery Room Air Room Air Room Air Room Air Intake and Output 04/30/18 04/30/18 05/01/18 15:01 23:01 07:01 Intake Total 250 ml 550 ml 200 ml Output Total 1400 ml 1450 ml Balance -1150 ml 550 ml -1250 ml Nutrition Consultation Dietary Evaluation: Recommendations by RD: Protein supplementation, PPN/TPN Comments: Continue regular diet as ordered to promote PO intake of meals REC Ensure w/lunch and dinner (chocolate) REC Masood (orange) w/lunch and dinner REC MVI - discussed w/RN Expected Outcomes/Goals: Diet advancement - met, new goal established New goal 04/30: PO intake to meet >75% est needs Interpretation of weight loss: >7.5% in 3 months Malnutrition Findings: Food and Nutrition Intake (Mod: <75% est energy req 7days Weight Status: Appropriate JENNIFER GALO MD May 01, 2018 10:22
[2018-05-01] MEDS: INSULIN GLARGINE 300 UNITS/3 ML INSULN.PEN. SQ SCH (10:25)
[2018-05-01 11:00] VITALS: BP 139/53
[2018-05-01] MEDS ORDERED: POTASSIUM CHLORIDE 20 MEQ TABLET.ER. PO ONE (11:00)
[2018-05-01] MEDS ORDERED: POTA20TA4 PO (12:06)
[2018-05-01] MEDS ORDERED: ERYT1OIN6 OP (12:06)
[2018-05-01] MEDS ORDERED: INSU100I13 SQ (12:06)
[2018-05-01] MEDS ORDERED: Pantoprazole PO (12:06)
--- NOTE | 2018-05-01 12:07 | PDOC3 ---
Discharge Summary Visit Information Date of Admission: Apr 26, 2018 Date of Discharge: May 01, 2018 Admitting Diagnosis: Epigastric abdominal pain Final Diagnosis Problems Medical Problems: (1) Acute pancreatitis Status: Acute (2) Chest pain Status: Acute Brief Hospital Course Allergies Allergies Coded Allergies Type Severity Reaction Last Updated Verified Penicillins Allergy Intermediate 04/30/18 Yes levofloxacin Allergy Intermediate 04/30/18 Yes morphine Allergy Intermediate 04/30/18 Yes vancomycin Allergy Intermediate Itching 04/30/18 Yes Vital Signs Vital Signs Date Time Temp Pulse Resp B/P (MAP) Pulse Ox O2 Delivery O2 Flow Rate FiO2 05/01/18 11:00 97.4 65 18 139/53 (81) 99 Room Air 97.4 05/01/18 08:00 2.0 Lab Results Laboratory Tests Test 04/29/18 12:15 04/29/18 16:54 04/29/18 20:37 04/30/18 06:30 Glucose (Fingerstick) 250 mg/dL (70-99) 154 mg/dL (70-99) 255 mg/dL (70-99) White Blood Count 7.4 x10^3/uL (4.0-11.0) Red Blood Count 3.47 x10^6/uL (3.50-5.40) Hemoglobin 9.6 g/dL (12.0-15.5) Hematocrit 29.5 % (36.0-47.0) Mean Corpuscular Volume 85 fL (79-100) Mean Corpuscular Hemoglobin 28 pg (25-35) Mean Corpuscular Hemoglobin Concent 33 g/dL (31-37) Red Cell Distribution Width 17.3 % (11.5-14.5) Platelet Count 270 x10^3/uL (140-400) Test 04/30/18 07:14 04/30/18 13:47 04/30/18 17:20 04/30/18 20:31 Glucose (Fingerstick) 164 mg/dL (70-99) 201 mg/dL (70-99) 320 mg/dL (70-99) 218 mg/dL (70-99) Test 05/01/18 05:15 05/01/18 07:24 05/01/18 11:22 Sodium Level 136 mmol/L (136-145) Potassium Level 3.4 mmol/L (3.5-5.1) Chloride Level 102 mmol/L (98-107) Carbon Dioxide Level 22 mmol/L (21-32) Anion Gap 12 (6-14) Blood Urea Nitrogen 15 mg/dL (7-20) Creatinine 1.0 mg/dL (0.6-1.0) Estimated GFR (Cockcroft-Gault) 53.9 Glucose Level 197 mg/dL (70-99) Calcium Level 9.0 mg/dL (8.5-10.1) Glucose (Fingerstick) 183 mg/dL (70-99) 351 mg/dL (70-99) Laboratory Tests Test 04/30/18 13:47 04/30/18 17:20 04/30/18 20:31 05/01/18 05:15 Glucose (Fingerstick) 201 mg/dL (70-99) 320 mg/dL (70-99) 218 mg/dL (70-99) Sodium Level 136 mmol/L (136-145) Potassium Level 3.4 mmol/L (3.5-5.1) Chloride Level 102 mmol/L (98-107) Carbon Dioxide Level 22 mmol/L (21-32) Anion Gap 12 (6-14) Blood Urea Nitrogen 15 mg/dL (7-20) Creatinine 1.0 mg/dL (0.6-1.0) Estimated GFR (Cockcroft-Gault) 53.9 Glucose Level 197 mg/dL (70-99) Calcium Level 9.0 mg/dL (8.5-10.1) Test 05/01/18 07:24 05/01/18 11:22 Glucose (Fingerstick) 183 mg/dL (70-99) 351 mg/dL (70-99) Brief Hospital Course Ms Elias is a 78yo F admitted for ALLY, hyponatremia, pancreatitis on labs. Her chief complaint was epigastric and bilateral upper abdominal pain. MRCP - Biliary tree is normal caliber. No choledocholithiasis. 04/29: Still with abdominal pain 04/30: EGD - esophageal/gastric ulcers s/p bx - plan for 2 months PPI and repeat EGD at that time Overnight no events. Tolerated regular breakfast, she is dressed, ready to leave. K low, ordered replacement. She is still weak, notes she wishes for [place] home health Other problems Assessment/Plan: acute renal failure, vasomotor nephropathy likely, hypovolemic hyponatremia acute pancreatitis, w./ u SIRS, w/ acute pain, pancreas dysfunction Dm2, poor control, check A1c, add SSI, some hyperosmolar non-ketosis would also explain lytes nausea and vomiting and abd pain CAD, hx CHF, is s/p cardiac cath x2 this month, was not stented at , then one was placed at [facility]. falls, chest contusion, weakness and debility, Replace potassium Ok for d/c if ok with GI, needs f/u on biopsy results and scheduled GI f/u. Discharge Information Condition at Discharge: Improved Follow Up: Weeks (8) Disposition/Orders: D/C to Home w/ HH ([facility]) Scheduled Bumetanide (Bumetanide) 2 Mg Tablet, 1 TAB PO DAILY for chf, #30 Ref 5 (Reported ) Entered as Reported by: LAYLA ETIENNE on 04/27/18247 Last Action: New Order on 04/27/18247 by LAYLA ETIENNE Collagenase Clostridium Hist. (Santyl Ointment) 30 Gm Oint...g., 1 LIZZY TP DAILY for WOUND CARE, #1 (Reported) DIRECTED BY PHYSICIAN Entered as Reported by: LAYLA ETIENNE on 04/27/18304 Last Action: New Order on 04/27/18304 by LAYLA ETIENNE Cyclobenzaprine Hcl (Cyclobenzaprine Hcl) 10 Mg Tablet, 1 TAB PO BID for muscle pain, #90 (Reported) Entered as Reported by: LAYLA ETIENNE on 04/27/18245 Last Action: New Order on 04/27/18245 by LAYLA ETIENNE Fluticasone/Salmeterol (Advair 250-50 Diskus) 1 Each Disk.w.dev, 1 PUFF IH BID for shortness of breath, #3 Ref 3 (Reported) Entered as Reported by: LAYLA ETIENNE on 04/27/18245 Last Action: New Order on 04/27/18245 by LAYLA ETIENNE Gabapentin (Gabapentin) 600 Mg Tablet, 200 MG PO DAILYWBKFT for NEUROGENIC PAIN, (Reported) Entered as Reported by: LAYLA ETIENNE on 04/27/18304 Last Action: New Order on 04/27/18304 by LAYLA ETIENNE Gabapentin (Gabapentin) 600 Mg Tablet, 100 MG PO NOON for NEUROGENIC PAIN, ( Reported) Entered as Reported by: LAYLA ETIENNE on 04/27/18304 Last Action: New Order on 04/27/18304 by LAYLA ETIENNE Gabapentin (Gabapentin) 600 Mg Tablet, 300 MG PO HS for NEUROGENIC PAIN, ( Reported) Entered as Reported by: LAYLA ETIENNE on 04/27/18304 Last Action: New Order on 04/27/18304 by LAYLA ETIENNE Isosorbide Mononitrate (Isosorbide Mononitrate Er) 30 Mg Tab.er.24h, 1 TAB PO DAILY for angina, #30 Ref 5 (Reported) Entered as Reported by: LAYLA ETIENNE on 04/27/18304 Last Action: New Order on 04/27/18304 by LAYLA ETIENNE Lisinopril (Lisinopril) 2.5 Mg Tablet, 1 TAB PO DAILY for htn, #30 Ref 5 ( Reported) Entered as Reported by: LAYLA ETIENNE on 04/27/18304 Last Action: New Order on 04/27/18304 by LAYLA ETIENNE Metoprolol Tartrate (Metoprolol Tartrate) 25 Mg Tablet, 1 TAB PO BID for htn, # 180 Ref 1 (Reported) Entered as Reported by: LAYLA ETIENNE on 04/27/18304 Last Action: New Order on 04/27/18304 by LAYLA ETIENNE Nitrofurantoin Macrocrystal (Nitrofurantoin) 100 Mg Capsule, 1 CAP PO BID for UTI, #20 (Reported) Entered as Reported by: LAYLA ETIENNE on 04/27/18304 Last Action: New Order on 04/27/18304 by LAYLA ETIENNE Rosuvastatin Calcium (Crestor) 20 Mg Tablet, 20 MG PO HS for FOR CHOLESTEROL, # 30 Ref 0 (Reported) Entered as Reported by: LAYLA ETIENNE on 04/27/18304 Last Action: New Order on 04/27/18304 by LAYLA ETIENNE Ticagrelor (Brilinta) 90 Mg Tablet, 90 MG PO BID for CAD, blood thinner, ( Reported) Entered as Reported by: LAYLA ETIENNE on 04/27/18247 Last Action: New Order on 04/27/18247 by LAYLA ETIENNE Scheduled PRN Nitroglycerin (NITROGLYCERIN SubLingual) 0.4 Mg Tab.subl, 0.4 MG SL PRN Q5MIN PRN for CHEST PAIN, (Reported) Entered as Reported by: LAYLA ETIENNE on 04/27/18245 Last Taken: Unknown Dose on 04/26/18 Last Action: New Order on 04/27/18245 by LAYLA ETIENNE Tramadol Hcl (Tramadol Hcl) 50 Mg Tablet, 50 MG PO Q6HRS PRN for PAIN, (Reported ) Entered as Reported by: LAYLA ETIENNE on 04/27/18304 Last Action: New Order on 04/27/18304 by JENNIFER WOLFE MD May 01, 2018 12:07
--- NOTE | 2018-05-01 12:08 | DISCH ---
DISCHARGE WITH HOME HEALTH DISCHARGE INFORMATION: Discharge Date: May 01, 2018 Final Diagnosis: Problems Medical Problems: (1) Acute pancreatitis Status: Acute (2) Chest pain Status: Acute Condition on Discharge: Stable CODE STATUS: Code Status: Full HOME HEALTH: Face to Face: I certify this patient is under my care and that I, or a nurse practitioner or physician's field administrative assistant working with me, had a face to face encounter that meets the physician face to face encounter requirements with this patient on 05/01/18. Medical Complications: DM Physical Therapy For: Evalulation/Treatment Occupational Therapy For: Evaluation/Treatment Home Health Aide For: Self-care SALES MARKETING MANAGER For: Community Resources Pt Meets Homebound Status: Extreme weakness w/ amb. POST DISCHARGE ORDERS: Activity Instructions for Disc: No restrictions Weight Bearing Status after Di: No restrictions DIET AFTER DISCHARGE: ADA CHECKS AFTER DISCHARGE: Checks after discharge: Check blood press - daily, Check blood sugar, ac/hs, Check your Temp as needed, Weigh Yourself Daily FOLLOW-UP: Follow up with: GI - Dr. Bolton in 8 weeks CERTIFICATION STATEMENT: Certification Statement: Certification Statement: Based on the above finding, I certify that this patient is confined to the home and needs intermittent chcf care, physical therapy and/or speech therapy, or continues to need occupational therapy.~ This patient is under my care, and I have initiated the establishment of the plan of care.~ This patient will be followed by myself or a community physician who will periodically review the plan of care. Home Meds Active Scripts Erythromycin Base (Erythromycin) 1 Gm Oint...g., 1 GM OP BID66 for Eye pain for 5 Days, #1 MISC Prov:JENNIFER GALO MD 05/01/18 Insulin Glargine,Hum.rec.anlog (LANTUS SOLOSTAR) 100 Unit/1 Ml Insuln.pen, 14 UNITS SQ DAILY10 for DM for 30 Days, #1 EACH 2 Refills Prov:JENNIFER GALO MD 05/01/18 Potassium Chloride (KLOR-CON M20) 20 Meq Tab.er.prt, 40 MEQ PO DAILYWBKFT for Hypokalemia for 30 Days, #60 TAB.SR Prov:JENNIFER GALO MD 05/01/18 [Pantoprazole] [address] Morales Conflict Check, 40 MG PO DAILYAC for 30 Days, #30 1 Refill Prov:JENNIFER GALO MD 05/01/18 Reported Medications Collagenase Clostridium Hist. (SANTYL OINTMENT) 30 Gm Oint...g., 1 LIZZY TP DAILY for WOUND CARE, #1 TUBE DIRECTED BY PHYSICIAN 04/27/18 Tramadol Hcl (TRAMADOL HCL) 50 Mg Tablet, 50 MG PO Q6HRS PRN for PAIN, TAB 04/27/18 Lisinopril (LISINOPRIL) 2.5 Mg Tablet, 1 TAB PO DAILY for htn, #30 TAB 5 Refills 04/27/18 Rosuvastatin Calcium (CRESTOR) 20 Mg Tablet, 20 MG PO HS for FOR CHOLESTEROL, # 30 TAB 0 Refills 04/27/18 Isosorbide Mononitrate (ISOSORBIDE MONONITRATE ER) 30 Mg Tab.er.24h, 1 TAB PO DAILY for angina, #30 TAB 5 Refills 04/27/18 Gabapentin (GABAPENTIN) 600 Mg Tablet, 300 MG PO HS for NEUROGENIC PAIN, TAB 04/27/18 Gabapentin (GABAPENTIN) 600 Mg Tablet, 100 MG PO NOON for NEUROGENIC PAIN, TAB 04/27/18 Gabapentin (GABAPENTIN) 600 Mg Tablet, 200 MG PO DAILYWBKFT for NEUROGENIC PAIN , TAB 04/27/18 Metoprolol Tartrate (METOPROLOL TARTRATE) 25 Mg Tablet, 1 TAB PO BID for htn, # 180 TAB 1 Refill 04/27/18 Ticagrelor (BRILINTA) 90 Mg Tablet, 90 MG PO BID for CAD, blood thinner, TAB 04/27/18 Bumetanide (BUMETANIDE) 2 Mg Tablet, 1 TAB PO DAILY for chf, #30 TAB 5 Refills 04/27/18 Nitroglycerin (NITROGLYCERIN SubLingual) 0.4 Mg Tab.subl, 0.4 MG SL PRN Q5MIN PRN for CHEST PAIN, BOTTLE 04/27/18 Cyclobenzaprine Hcl (CYCLOBENZAPRINE HCL) 10 Mg Tablet, 1 TAB PO BID for muscle pain, #90 TAB 04/27/18 Fluticasone/Salmeterol (ADVAIR 250-50 DISKUS) 1 Each Disk.w.dev, 1 PUFF IH BID for shortness of breath, #3 INHALER 3 Refills 04/27/18 Discontinued Reported Medications Nitrofurantoin Macrocrystal (NITROFURANTOIN) 100 Mg Capsule, 1 CAP PO BID for UTI, #20 CAP 04/27/18 JENNIFER GALO MD May 01, 2018 12:08
--- NOTE | 2018-05-01 13:29 | NUR ---
SS following up with discharge planning. Discharge orders received. SS phoned and faxed discharge orders and home healthcare referral to [facility], ; fax [phone]. Pt choice and rights forms completed with brand planner, Nikki Darling, and pt and placed in chart. Pt and pt's RN notified.
--- NOTE | 2018-05-01 14:00 | NUR ---
Discharge Note: ALYSSA MATA Discharge instructions including diet, s/s requiring further attention, follow up, and discharge home medications reviewed with Patient and a copy given. All questions have been answered and understanding verbalized. The following instructions and handouts were given: CAD, EGD, Acute Pancreatitis Discontinued lines and drains: 22 L wrist Patient discharged to home with daughter with scripts.
--- NOTE | 2018-05-01 15:59 | PDOC ---
CARDIO Progress Notes Date and Time Date of Service 05/01/2018 Time of Evaluation 1320 Subjective Subjective: No Chest Pain, No shortness of breath, No Palpitations Vitals Vitals Vital Signs Date Time Temp Pulse Resp B/P (MAP) Pulse Ox O2 Delivery O2 Flow Rate FiO2 05/01/18 11:00 97.4 65 18 139/53 (81) 99 Room Air 97.4 05/01/18 08:00 2.0 Weight Weight [ ] Input and Output Intake and Output Intake and Output 05/01/18 07:01 Intake Total 1000 ml Output Total 2850 ml Balance -1850 ml Intake Oral 750 ml IV Total 250 ml Output Urine Total 2850 ml # Voids 2 Laboratory Labs Laboratory Tests Test 04/30/18 17:20 04/30/18 20:31 05/01/18 05:15 05/01/18 07:24 Glucose (Fingerstick) 320 mg/dL (70-99) 218 mg/dL (70-99) 183 mg/dL (70-99) Sodium Level 136 mmol/L (136-145) Potassium Level 3.4 mmol/L (3.5-5.1) Chloride Level 102 mmol/L (98-107) Carbon Dioxide Level 22 mmol/L (21-32) Anion Gap 12 (6-14) Blood Urea Nitrogen 15 mg/dL (7-20) Creatinine 1.0 mg/dL (0.6-1.0) Estimated GFR (Cockcroft-Gault) 53.9 Glucose Level 197 mg/dL (70-99) Calcium Level 9.0 mg/dL (8.5-10.1) Test 05/01/18 11:22 Glucose (Fingerstick) 351 mg/dL (70-99) Microbiology Micro Microbiology 04/27/18 Urine Culture - Final, Complete 04/27/18 Urine Culture Result 1 (HUNG) - Final, Complete Review of Systems Constitutional: yes: weakness, alert, oriented Ears/Nose/Throat: Yes: no symptom reported Eyes: Yes: no symptom reported Pulmonary: Yes no symptom reported Cardiovascular: Yes no symptom reported Gastrointestional: Yes: nausea, epigastric pain Genitourinary: Yes: no symptom reported Musculoskeletal: Yes: no symptom reported Skin: Yes no symptom reported Psychiatric/Neurological: Yes: no symptom reported Endocrine: Yes: no symptom reported Physical Exam HEENT: Neck Supple W Full Motion Chest: Symmetric LUNGS: Clear to Auscultation Heart: S1S2, RRR (SR) Abdomen: Soft N/T Extremities: No Calf Tenderness Neurology: alert, oriented, follow commands Assessment Assessment 1. Atypical CP: suspect MSK with related mechanical fall 2 weeks ago. PUD also contributing 2. Moderate 3. Mechanical fall: no injuries, no presyncope or syncope 4. CAD: 03/31/2018 PCI to ostial LAD at [facility]. 5. 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 Elevated lipase: likely due to PUD. Nonbleeding esophageal and gastric ulcer : GI following 7. Chronic diastolic CHF: compensated 8. COPD: stable 9. DM2: per PCP 10. CKD: unknown baseline 11. HTN: controlled 12. HLP Recommendations 1. Discussed with GI, ASA and brilinta to continue. Recommend Hgb in 1-2 weeks. Follow up with [facility] cardiology in 1-2 weeks. Discussed with pt and daughter 2. Continue with secondary prevention including crestor, lisinopril and metoprolol. GILL GALVAN APRN May 01, 2018 15:59
--- NOTE | 2018-05-01 17:10 | PATHOLOGY ---
[facility] Accession Number: [id number] . 01 Material submitted: . PART A: GASTRIC ULCER BIOPSY PART B: ESOPHAGEAL ULCER BIOPSY . 01 Clinical history: . Chest pain . 02 Diagnosis: A. Gastric biopsies, gastric ulcer: - Chronic gastritis, mild. . B. Esophageal biopsies, esophageal ulcer: - Segments of hyperplastic squamous esophageal mucosa, small segment of gastric cardia mucosa, and segment of acute inflammatory exudate consistent with reflux esophagitis with ulceration. (JPM:pallavi; 05/01/2018) QMS/05/01/2018 . 02 Comment: Sections of the gastric biopsy reveal segments of gastric body mucosa showing congestion and mild chronic inflammation. A properly controlled immunoperoxidase stain for Helicobacter is negative for Helicobacter organisms. There is no evidence of malignancy. . Sections of the esophageal biopsy reveal segments of focally tangentially oriented hyperplastic squamous esophageal mucosa, small segment of gastric cardia mucosa showing mild chronic inflammation, and segment of acute inflammatory exudate. The findings are consistent with reflux esophagitis with ulceration. There is no evidence of Ward change, dysplasia, or malignancy. (JPM:pallavi; 05/01/2018) . . Special stain performed: Immunoperoxidase stain for Helicobacter on A1. . 02 Electronically signed: . Robin Navarro MD, Pathologist NPI- [id number] . 01 Gross description: . A. The specimen is received in formalin, labeled "uCrt, Rosalia, gastric ulcer BX", are few dias tissue fragments measuring 0.6 x 0.3 x 0.1 cm in aggregate, entirely submitted in A1. . B. The specimen is received in formalin, labeled "Curt, Rosalia, esophageal ulcer BX", are few dias-rocha tissues measuring 0.7 x 0.3 x 0.1 cm in aggregate, entirely submitted in B1. (SWS; 04/30/2018) SHS/SHS . 02 Pathologist provided ICD-10: K29.50, K21.0 . 02 CPT . 233550, 147636, [id number] Specimen Comment: A courtesy copy of this report has been sent to Specimen Comment: [phone], , . Specimen Comment: Report sent to ,DR AEVLAR / DR CORONADO Specimen Comment: A duplicate report has been generated due to demographic updates. Performed at: 01 [facility] [address] [address], [place] [id number] MD Cody Turcios MD Phone: [phone] Performed at: 02 [facility] [address] [place], [place] [id number] MD Robin Navarro MD Phone: [phone]
== END 2018-05-01 14:10 | disposition home health service (06) | DRG 438 ==
LOC: ER 17:30 → 2 SOUTH 19:49
PROVIDERS: ADMIT Internal Medicine; ATTEND Internal Medicine
PROC: 0DB58ZX Excision of Esophagus, Via Natural or Artificial Opening Endoscopic, Diagnostic (ICD-10-PCS; principal; 2018-04-26)
PROC: 0DB68ZX Excision of Stomach, Via Natural or Artificial Opening Endoscopic, Diagnostic (ICD-10-PCS; 2018-04-26)
DX: K85.90 Acute pancreatitis without necrosis or infection, unspecified (principal); E11.00 Type 2 diabetes mellitus with hyperosmolarity without nonketotic hyperglycemic-hyperosmolar coma (NKHHC); N17.0 Acute kidney failure with tubular necrosis; E87.1 Hypo-osmolality and hyponatremia; I13.0 Hypertensive heart and chronic kidney disease with heart failure and stage 1 through stage 4 chronic kidney disease, or unspecified chronic kidney disease; I50.32 Chronic diastolic (congestive) heart failure; N13.30 Unspecified hydronephrosis; R65.10 Systemic inflammatory response syndrome (SIRS) of non-infectious origin without acute organ dysfunction; K25.9 Gastric ulcer, unspecified as acute or chronic, without hemorrhage or perforation; E03.9 Hypothyroidism, unspecified; E11.22 Type 2 diabetes mellitus with diabetic chronic kidney disease; E11.40 Type 2 diabetes mellitus with diabetic neuropathy, unspecified; E11.65 Type 2 diabetes mellitus with hyperglycemia; E78.00 Pure hypercholesterolemia, unspecified; E78.5 Hyperlipidemia, unspecified; E86.0 Dehydration; E87.6 Hypokalemia; I25.10 Atherosclerotic heart disease of native coronary artery without angina pectoris; I35.0 Nonrheumatic aortic (valve) stenosis; I70.0 Atherosclerosis of aorta; J44.9 Chronic obstructive pulmonary disease, unspecified; K21.9 Gastro-esophageal reflux disease without esophagitis; K28.9 Gastrojejunal ulcer, unspecified as acute or chronic, without hemorrhage or perforation; K76.0 Fatty (change of) liver, not elsewhere classified; K80.20 Calculus of gallbladder without cholecystitis without obstruction; N18.9 Chronic kidney disease, unspecified; R29.6 Repeated falls; S20.219A Contusion of unspecified front wall of thorax, initial encounter; Z82.49 Family history of ischemic heart disease and other diseases of the circulatory system; Z89.411 Acquired absence of right great toe; Z91.81 History of falling; Z95.5 Presence of coronary angioplasty implant and graft; Z96.653 Presence of artificial knee joint, bilateral; Z87.891 Personal history of nicotine dependence; G89.29 Other chronic pain; M19.90 Unspecified osteoarthritis, unspecified site
CPT/HCPCS: 36415; 43239; 71045; 74176; 74181; 76700; 80048; 80053; 80061; 80307; 81001; 82550; 82787; 82962; 83036; 83690; 83735; 83880; 84100; 84484; 85007; 85025; 85027; 85379; 85520; 85610; 85730; 86301; 87086; 88305; 88342; 93005; 93306; J1644; J1815; J2704; J3010; J3480; J3490; J7030; J7120; Q0163; 97116; 99285-25; G0378